=== PATIENT | female | born 1960 | race Caucasian/White ===

== ENCOUNTER → 2016-12-29 | Outpatient (CLI) | payer OTHER ==
--- NOTE | 2016-12-30 10:59 | XR ---
Left foot HISTORY: Pain 3 views of the left foot No comparisons Degenerative changes present within the first digit especially at the metatarsophalangeal joint, ther e are degenerative changes at the intertarsal and tibiotalar joints. Suspect underlying pes planus de formity. Alignment is maintained, bone mineralization is slightly decreased. There is soft tissue swe lling present. Soft tissue calcification in the leg may be vascular. IMPRESSION: Pes planus deformity suspected, osteoarthritic changes.
== END | disposition home or self-care (01) ==
LOC: RADXRYALE 13:10
PROVIDERS: ATTEND Internal Medicine
DX: M19.072 Primary osteoarthritis, left ankle and foot (principal)
CPT/HCPCS: 81003

== ENCOUNTER 2018-02-24 01:13 | Emergency (ER) | payer OTHER ==
--- NOTE | 2018-02-24 01:50 | ED ---
SOB HPI - General Chief Complaint: Shortness of Breath Stated Complaint: ANAY Time Seen by Provider: 02/24/18 01:26 Source: patient Mode of arrival: ambulatory Limitations: no limitations - History of Present Illness Initial Comments: This patient is a 57-year-old woman who presents to be evaluated for chest congestion which started approximately 16 hours ago and seems to be little bit worse tonight. The patient states she has also noted that she has little bit of swelling of the bilateral ankles and the dorsum of the feet bilaterally. The foot swelling seems to been going on for possibly 2-3 days. Patient denies chest pain. Denies change in bowel movements. She has noted that her urine seems to be more concentrated that this been going on for perhaps a month. MD Complaint: shortness of breath Onset/Timin -: days(s) Consistency: constant Improves With: nothing Worsens With: nothing Associated Symptoms: other (Bilateral foot and ankle edema) - Related Data Home Medications Medication Instructions Recorded Confirmed Losartan-Hctz 50-12.5 mg [Hyzaar 1 tab PO DAILY 06/10/14 02/24/18 50-12.5] Insulin Aspart [NovoLOG Flexpen] 20 units SQ AC-BID 05/10/15 02/24/18 Pantoprazole Sodium [Protonix] 40 mg PO DAILY 05/10/15 02/24/18 Pioglitazone HCl/Metformin HCl 1 tab PO BID 04/21/16 02/24/18 [Pioglitazone-Metformin 15850] Dulaglutide [Trulicity] 1.5 mg SQ [place] 09/18/16 02/24/18 Previous Rx's Medication Instructions Recorded Polyethylene Glycol 3350 [Miralax] 17 gm PO DAILY 7 Days packet 09/18/16 Ciprofloxacin HCl [Cipro] 500 mg PO Q12HR #14 tablet 02/24/18 Allergies Allergy/AdvReac Type Severity Reaction Status Date / Time No Known Allergies Allergy Verified 02/24/18 03:11 Review of Systems ROS Statement: Those systems with pertinent positive or pertinent negative responses have been documented in the HPI. ROS Other: All systems not noted in ROS Statement are negative. Constitutional: Denies: fever, chills Eyes: Denies: vision change Respiratory: Reports: dyspnea. Denies: wheezes, hemoptysis, stridor Cardiovascular: Reports: orthopnea, edema. Denies: chest pain, palpitations, syncope Gastrointestinal: Denies: abdominal pain, nausea, vomiting Genitourinary: Reports: other (Patient states urine seems to be more concentrated and has odor for about one month). Denies: dysuria, frequency, hematuria Musculoskeletal: Denies: back pain Skin: Denies: rash Neurological: Denies: headache, weakness, numbness Past Medical History Past Medical History: Diabetes Mellitus, GERD/Reflux, Hyperlipidemia, Hypertension Additional Past Medical History / Comment(s): Lymphoma, vertigo, hemmorhoids, History of Any Multi-Drug Resistant Organisms: None Reported Past Surgical History: Section, Hysterectomy, Tonsillectomy Additional Past Surgical History / Comment(s): right total hip, right knee reduction, lymph node removed right side, Past Psychological History: Depression Smoking Status: Former smoker Past Alcohol Use History: Occasional Past Drug Use History: None Reported General Exam Limitations: no limitations General appearance: alert, in no apparent distress, obese Head exam: Present: atraumatic, normocephalic Eye exam: Present: normal appearance. Absent: scleral icterus, conjunctival injection Respiratory exam: Present: normal lung sounds bilaterally. Absent: respiratory distress, wheezes, rales, rhonchi, stridor Cardiovascular Exam: Present: regular rate, normal rhythm, normal heart sounds. Absent: systolic murmur, diastolic murmur, rubs, gallop GI/Abdominal exam: Present: soft, other (Exam limited by obesity). Absent: distended, tenderness, guarding, rebound, rigid, pulsatile mass Extremities exam: Present: full ROM, normal capillary refill, pedal edema ( Bilateral edema to the ankles and dorsum of the feet). Absent: tenderness, calf tenderness Back exam: Present: normal inspection. Absent: CVA tenderness (R), CVA tenderness (L) Neurological exam: Present: alert Skin exam: Present: warm, dry, intact, normal color. Absent: rash Course Vital Signs 02/24/18 02/24/18 01:17 02:20 Temperature 98.0 F Pulse Rate 99 94 Respiratory 20 18 Rate Blood Pressure 146/74 130/80 O2 Sat by Pulse 97 96 Oximetry Medical Decision Making - Lab Data Result diagrams: 02/24/18 01:55 02/24/18 01:55 Lab Results 02/24/18 02/24/18 02/24/18 Range/Units 01:55 01:55 01:55 WBC 5.7 (3.8-10.6) k/uL RBC 4.59 (3.80-5.40) m/uL Hgb 13.4 (11.4-16.0) gm/dL Hct 41.1 (34.0-46.0) % MCV 89.5 (80.0-100.0) fL MCH 29.2 (25.0-35.0) pg MCHC 32.6 (31.0-37.0) g/dL RDW 13.9 (11.5-15.5) % Plt Count 342 (150-450) k/uL Neutrophils % 62 % Lymphocytes % 26 % Monocytes % 7 % Eosinophils % 2 % Basophils % 1 % Neutrophils # 3.5 (1.3-7.7) k/uL Lymphocytes # 1.5 (1.0-4.8) k/uL Monocytes # 0.4 (0-1.0) k/uL Eosinophils # 0.1 (0-0.7) k/uL Basophils # 0.1 (0-0.2) k/uL Sodium 139 (137-145) mmol/L Potassium 4.2 (3.5-5.1) mmol/L Chloride 99 (98-107) mmol/L Carbon Dioxide 27 (22-30) mmol/L Anion Gap 13 mmol/L BUN 22 H (7-17) mg/dL Creatinine 0.70 (0.52-1.04) mg/dL Est GFR (CKD-EPI)AfAm >90 (>60 ml/min/1.73 sqM) Est GFR (CKD-EPI)NonAf >90 (>60 ml/min/1.73 sqM) Glucose 239 H (74-99) mg/dL Calcium 9.7 (8.4-10.2) mg/dL Magnesium 1.8 (1.6-2.3) mg/dL Total Bilirubin 0.4 (0.2-1.3) mg/dL AST 15 (14-36) U/L ALT 12 (9-52) U/L Alkaline Phosphatase 83 (38-126) U/L Total Creatine Kinase 84 (30-135) U/L CK-MB (CK-2) 0.6 (0.0-2.4) ng/mL CK-MB (CK-2) Rel Index 0.7 Troponin I <0.012 (0.000-0.034) ng/mL NT-Pro-B Natriuret Pep pg/mL Total Protein 6.5 (6.3-8.2) g/dL Albumin 3.8 (3.5-5.0) g/dL Urine Color Urine Appearance (Clear) Urine pH (5.0-8.0) Ur Specific Industry (1.001-1.035) Urine Protein (Negative) Urine Glucose (UA) (Negative) Urine Ketones (Negative) Urine Blood (Negative) Urine Nitrite (Negative) Urine Bilirubin (Negative) Urine Urobilinogen (<2.0) mg/dL Ur Leukocyte Esterase (Negative) Urine RBC (0-5) /hpf Urine WBC (0-5) /hpf Ur Squamous Epith Cells (0-4) /hpf Urine Bacteria (None) /hpf Urine Mucus (None) /hpf Influenza Type A RNA (Not Detectd) Influenza Type B (PCR) (Not Detectd) 02/24/18 02/24/18 02/24/18 Range/Units 01:55 01:55 02:45 WBC (3.8-10.6) k/uL RBC (3.80-5.40) m/uL Hgb (11.4-16.0) gm/dL Hct (34.0-46.0) % MCV (80.0-100.0) fL MCH (25.0-35.0) pg MCHC (31.0-37.0) g/dL RDW (11.5-15.5) % Plt Count (150-450) k/uL Neutrophils % % Lymphocytes % % Monocytes % % Eosinophils % % Basophils % % Neutrophils # (1.3-7.7) k/uL Lymphocytes # (1.0-4.8) k/uL Monocytes # (0-1.0) k/uL Eosinophils # (0-0.7) k/uL Basophils # (0-0.2) k/uL Sodium (137-145) mmol/L Potassium (3.5-5.1) mmol/L Chloride (98-107) mmol/L Carbon Dioxide (22-30) mmol/L Anion Gap mmol/L BUN (7-17) mg/dL Creatinine (0.52-1.04) mg/dL Est GFR (CKD-EPI)AfAm (>60 ml/min/1.73 sqM) Est GFR (CKD-EPI)NonAf (>60 ml/min/1.73 sqM) Glucose (74-99) mg/dL Calcium (8.4-10.2) mg/dL Magnesium (1.6-2.3) mg/dL Total Bilirubin (0.2-1.3) mg/dL AST (14-36) U/L ALT (9-52) U/L Alkaline Phosphatase (38-126) U/L Total Creatine Kinase (30-135) U/L CK-MB (CK-2) (0.0-2.4) ng/mL CK-MB (CK-2) Rel Index Troponin I (0.000-0.034) ng/mL NT-Pro-B Natriuret Pep 72 pg/mL Total Protein (6.3-8.2) g/dL Albumin (3.5-5.0) g/dL Urine Color Yellow Urine Appearance Clear (Clear) Urine pH 5.5 (5.0-8.0) Ur Specific Industry 1.024 (1.001-1.035) Urine Protein Trace H (Negative) Urine Glucose (UA) 4+ H (Negative) Urine Ketones Trace H (Negative) Urine Blood Negative (Negative) Urine Nitrite Positive H (Negative) Urine Bilirubin Negative (Negative) Urine Urobilinogen 2.0 (<2.0) mg/dL Ur Leukocyte Esterase Moderate H (Negative) Urine RBC 2 (0-5) /hpf Urine WBC 59 H (0-5) /hpf Ur Squamous Epith Cells 1 (0-4) /hpf Urine Bacteria Rare H (None) /hpf Urine Mucus Occasional H (None) /hpf Influenza Type A RNA Not Detected (Not Detectd) Influenza Type B (PCR) Not Detected (Not Detectd) - EKG Data -: EKG Interpreted by Ct EKG shows normal: sinus rhythm, axis (Normal), intervals (IL interval and QRS duration both normal. QTC is 481 ms, prolonged.), QRS complexes (Normal), ST-T waves (Normal) Rate: normal (Rate 87 bpm) Disposition Clinical Impression: Urinary tract infection, Edema of both ankles Disposition: HOME SELF-CARE Condition: Fair Instructions: Urinary Tract Infection in Women (ED), Leg Edema (ED) Prescriptions: Ciprofloxacin HCl [Cipro] 500 mg PO Q12HR #14 tablet Is patient prescribed a controlled substance at d/c from ED?: No Referrals: Africa Be MD [Primary Care Provider] - 1-2 days
[2018-02-24 02:09] LABS: Basophils # (A) 0.1 k/uL (0-0.2); Basophils % (A) 1 %; Eosinophils # (A) 0.1 k/uL (0-0.7); Eosinophils % (A) 2 %; HCT 41.1 % (34.0-46.0); HGB 13.4 gm/dL (11.4-16.0); Lymphocytes # (A) 1.5 k/uL (1.0-4.8); Lymphocytes % (A) 26 %; MCH 29.2 pg (25.0-35.0); MCHC 32.6 g/dL (31.0-37.0); MCV 89.5 fL (80.0-100.0); Mean Platelet Volume 6.3; Monocytes # (A) 0.4 k/uL (0-1.0); Monocytes % (A) 7 %; Neutrophils # (A) 3.5 k/uL (1.3-7.7); Neutrophils % (A) 62 %; Platelet Count 342 k/uL (150-450); RBC 4.59 m/uL (3.80-5.40); RDW 13.9 % (11.5-15.5); WBC 5.7 k/uL (3.8-10.6)
--- NOTE | 2018-02-24 02:11 | XR ---
EXAMINATION TYPE: XR chest 2V DATE OF EXAM: 02/24/2018 COMPARISON: NONE HISTORY: Difficulty breathing TECHNIQUE: Frontal and lateral views of the chest are obtained. FINDINGS: Heart and mediastinum are normal. Lungs are clear. Costophrenic angles are clear. Bony tho rax is intact. Pulmonary vascularity is normal. There are chest leads. IMPRESSION: Normal chest
[2018-02-24 02:17] LABS: ALT 12 U/L (9-52); AST 15 U/L (14-36); Albumin 3.8 g/dL (3.5-5.0); Alkaline Phosphatase 83 U/L (38-126); Anion Gap 13 mmol/L; Blood Urea Nitrogen 22 mg/dL (7-17); Calcium 9.7 mg/dL (8.4-10.2); Carbon Dioxide 27 mmol/L (22-30); Chloride 99 mmol/L (98-107); Glucose 239 mg/dL (74-99); Magnesium 1.8 mg/dL (1.6-2.3); Potassium 4.2 mmol/L (3.5-5.1); Sodium 139 mmol/L (137-145); Total Bilirubin 0.4 mg/dL (0.2-1.3); Total Protein 6.5 g/dL (6.3-8.2)
[2018-02-24 02:19] LABS: Creatine Kinase 84 U/L (30-135)
[2018-02-24 02:45] LABS: Creatine Kinase MB 0.6 ng/mL (0.0-2.4); Troponin I <0.012 ng/mL (0.000-0.034)
[2018-02-24 02:57] LABS: Appearance,Urine Clear (Clear); Bacteria,Urine Rare /hpf; Bilirubin,Urine Negative (Negative); Blood,Urine Negative (Negative); Color,Urine Yellow; Glucose,Urine (UA) 4+ (Negative); Ketones,Urine Trace (Negative); Leukocyte Esterase,Urine Moderate (Negative); Mucus,Urine Occasional /hpf; Nitrite,Urine Positive (Negative); PH, Urine 5.5 (5.0-8.0); Protein,Urine Trace (Negative); RBC,Urine 2 /hpf (0-5); Specific Gravity,Urine 1.024 (1.001-1.035); Squamous Epithelial Cell,Urine 1 /hpf (0-4); WBC,Urine 59 /hpf (0-5)
[2018-02-24 02:59] VITALS: RESP 18
[2018-02-24] MEDS ORDERED: cefTRIAXone IN SWFI 1,000 MG/10 ML SYRINGE IVP STA (03:00)
[2018-02-24 03:38] VITALS: BP 121/79; PULSE 88; TEMP 97.9
== END 2018-02-24 03:37 | disposition home or self-care (01) ==
LOC: EC 01:13
DX: N39.0 Urinary tract infection, site not specified (principal); R60.0 Localized edema; R06.02 Shortness of breath; R09.89 Other specified symptoms and signs involving the circulatory and respiratory systems; I10 Essential (primary) hypertension; E11.9 Type 2 diabetes mellitus without complications; K21.9 Gastro-esophageal reflux disease without esophagitis; E66.9 Obesity, unspecified; Z87.891 Personal history of nicotine dependence; Z79.4 Long term (current) use of insulin; Z79.899 Other long term (current) drug therapy; Z68.42 Body mass index [BMI] 45.0-49.9, adult
CPT/HCPCS: 36415; 93005; 83880; 80053; 82550; 82553; 83735; 84484; 85025; 81001; 87086; 87502; 71046; 99285; 96374; J0696; 87077; 87186

== ENCOUNTER → 2018-06-17 | Outpatient (CLI) | payer OTHER ==
--- NOTE | 2018-06-17 15:41 | CT ---
EXAMINATION TYPE: CT ChestAbdPelvis w con DATE OF EXAM: 06/17/2018 COMPARISON: 09/18/2016 and 05/26/2012 HISTORY: 57-year-old female follow-up Lymphoma (Rt hip) TECHNIQUE: Contiguous axial scanning of the chest, abdomen, and pelvis performed with IV Contrast, pa tient injected with 100 mL of Isovue 300. Delayed images through the kidneys were obtained. Coronal/s agittal reconstructions performed. CT DLP: 2434 mGycm Automated exposure control for dose reduction was used. FINDINGS: Chest: The heart is upper limits of normal in size without pericardial effusion. Coronary vessel calcificati ons are present. Aorta normal caliber with a bovine configuration to the aortic arch. No thoracic lymphadenopathy by C T size criteria. Evaluation of the lungs show some minimal stable 4 mm and smaller nodularity in the right middle lobe and also at the peripheral left base. Strandy atelectasis medial right middle lobe and inferior ling nancy. No consolidation or pleural effusion. ABDOMEN: Note is artifact from patient's large body habitus. No definite focal liver lesion though assessment is limited due to the artifacts. Portal venous system appears grossly patent. Cholecystectomy clips. Stable 1.4 cm left adrenal nodule. Stability suggests a benign adrenal adenoma. Right adrenal gland, spleen, and pancreas appear within normal limits. No IV contrast seen excreted from the kidneys on delayed kidney images. Numerous borderline and mildly enlarged mesenteric lymph nodes are present measuring up to 1.1 cm, un changed from 2016. Additional scattered borderline sized left periaortic lymph nodes noted. Right com mon iliac chain lymph node is mildly enlarged at 1 cm, stable. No dilated small bowel, free fluid, or free air. Oral contrast has progressed to the rectum. No peric olonic inflammatory change. Retroaortic left renal vein. Pelvis: Very limited assessment due to artifact from the patient's right hip replacement and large body habit us causing excessive Monroe's. No abnormal fluid collection seen. No evident inguinal lymphadenopathy . Assessment is otherwise very limited. Bones: Right hip replacement. Degenerative changes left hip. Endplate spondylosis mid to lower thoracic spin e. Degenerative disc disease mid to lower lumbar spine. IMPRESSION: NUMEROUS BORDERLINE AND MILDLY ENLARGED MESENTERIC LYMPH NODES REMAIN UNCHANGED DATING BACK TO 2016 A ND EVEN 2011. FINDINGS COULD BE CHRONIC REACTIVE/POST INFLAMMATORY OR COULD REPRESENT TREATED DISEASE . ONGOING FOLLOW-UP INDICATED.
== END | disposition home or self-care (01) ==
LOC: RADCTMAIN 10:52
PROVIDERS: ATTEND Internal Medicine Hematology & Oncology
DX: C85.98 Non-Hodgkin lymphoma, unspecified, lymph nodes of multiple sites (principal); R59.0 Localized enlarged lymph nodes
CPT/HCPCS: 82565; 84520; 71260; 74177; 36415; Q9967

== ENCOUNTER 2020-09-05 20:30 | Inpatient (IN) | payer OTHER ==
--- NOTE | 2020-09-05 22:39 | ED ---
General Adult HPI - General Chief complaint: Shortness of Breath Stated complaint: +COVID, Weakness Time Seen by Provider: 09/05/20 22:07 Source: patient, family Mode of arrival: ambulatory Limitations: no limitations - History of Present Illness Initial comments: 59-year-old female presents to the emergency department with complaints of increasing shortness of breath, fever, and fatigue. Patient states she was diagnosed with COVID on August 31 by her primary care provider and is currently on an oral steroid but is feeling worse. Patient states symptoms began 2 weeks ago with sinus pressure followed by a congested cough, nausea, vomiting, and diarrhea. Reports several members of her household are also COVID positive. Patient denies any recent rash, chest pain, abdominal pain, constipation, back pain, numbness, tingling, dizziness, hematuria, dysuria, urinary urgency, urinary frequency, headache, visual changes, or any other complaints. - Related Data Home Medications Medication Instructions Recorded Confirmed Losartan-Hctz 50-12.5 mg [Hyzaar 1 tab PO DAILY 06/10/14 09/06/20 50-12.5] Pantoprazole Sodium [Protonix] 40 mg PO DAILY 05/10/15 09/06/20 Pioglitazone HCl/Metformin HCl 2 tab PO DAILY 04/21/16 09/06/20 [Pioglitazone-Metformin 15-850] Albuterol Nebulized [Ventolin 2.5 mg INHALATION RT-QID PRN 09/05/20 09/06/20 Nebulized] Atorvastatin [Lipitor] 10 mg PO HS 09/05/20 09/06/20 Cephalexin [Keflex] 500 mg PO BID 09/05/20 09/06/20 Cholecalciferol [Vitamin D3 (25 4,000 unit PO DAILY 09/05/20 09/06/20 Mcg = 1000 Iu)] Cinnamon Bark [Cinnamon] 500 mg PO DAILY 09/05/20 09/06/20 Dulaglutide [Trulicity] 0.75 mg SQ WE 09/05/20 09/06/20 Insulin Detemir [Levemir Flextouch] 50 units SQ DAILY 09/05/20 09/06/20 Venlafaxine HCl [Effexor XR] 150 mg PO DAILY 09/05/20 09/06/20 methylPREDNISolone [Medrol Dose See Taper PO DIRECTED 11/18/20 11/19/20 Pack] Allergies Allergy/AdvReac Type Severity Reaction Status Date / Time No Known Allergies Allergy Verified 09/05/20 23:57 Review of Systems ROS Statement: Those systems with pertinent positive or pertinent negative responses have been documented in the HPI. ROS Other: All systems not noted in ROS Statement are negative. Past Medical History Past Medical History: Diabetes Mellitus, GERD/Reflux, Hyperlipidemia, Hypertension Additional Past Medical History / Comment(s): Lymphoma, vertigo, hemmorhoids, History of Any Multi-Drug Resistant Organisms: None Reported Past Surgical History: Section, Hysterectomy, Tonsillectomy Additional Past Surgical History / Comment(s): right total hip, right knee reduction, lymph node removed right side, Past Psychological History: Depression Smoking Status: Former smoker Past Alcohol Use History: Occasional Past Drug Use History: None Reported General Exam Limitations: no limitations General appearance: alert (Well-developed, well-nourished female who presents in mild distress. Initial temperature 97.5, pulse 91, respirations 26, blood pr essure 107/75, pulse ox 90% on room air.) Respiratory exam: Present: normal lung sounds bilaterally, chest wall tenderness (Right lateral chest wall tenderness), other (short of breath with activity and position changes; mildly tachypneic). Absent: wheezes, rhonchi Cardiovascular Exam: Present: regular rate, normal rhythm, normal heart sounds. Absent: systolic murmur, diastolic murmur, rubs, gallop, clicks GI/Abdominal exam: Present: soft, normal bowel sounds, other (Large abdominal habitus). Absent: tenderness Neurological exam: Present: alert, oriented X3, CN II-XII intact Psychiatric exam: Present: flat affect Skin exam: Present: warm, dry, intact, pallor Course Vital Signs 09/05/20 09/05/20 09/05/20 20:40 21:25 22:30 Temperature 97.5 F L Pulse Rate 91 76 Respiratory 26 H 22 20 Rate Blood Pressure 107/75 118/55 O2 Sat by Pulse 90 L 97 Oximetry 09/05/20 09/06/20 23:30 01:00 Temperature 98.6 F Pulse Rate 79 79 Respiratory 20 20 Rate Blood Pressure 127/61 127/61 O2 Sat by Pulse 97 94 L Oximetry Medical Decision Making - Medical Decision Making 59-year-old female presents to the emergency department with worsening shortness of breath and fatigue. States she was diagnosed with COVID on August 31 and was recently prescribed a steroid Dosepak, but does not feel as if she is improving. Patient reports poor appetite, dyspnea with minimal exertion, and generalized weakness. Initial room air saturation was 90% with a respiratory rate of 26. Improved to 95% with oxygen administration. Lab work was obtained and demonstrated dehydration with a sodium of 130 and a chloride of 93. Renal function is also impaired. BUN 37, and creatinine 1.25. Lab markers for Covid were elevated, specifically LDH 1138 and CRP 89.5. Patient's d-dimer was 0.84. CT of the chest showed ground glass opacities consistent with multifocal infection; negative for pulmonary embolism. IV hydration will continue. Discussed plan to admit with patient and she is agreeable. - Lab Data Result diagrams: 09/05/20 23:15 09/05/20 23:15 Lab Results 09/05/20 09/05/20 09/05/20 Range/Units 23:15 23:15 23:15 WBC 8.8 (3.8-10.6) k/uL RBC 4.16 (3.80-5.40) m/uL Hgb 12.6 (11.4-16.0) gm/dL Hct 37.2 (34.0-46.0) % MCV 89.4 (80.0-100.0) fL MCH 30.4 (25.0-35.0) pg MCHC 34.0 (31.0-37.0) g/dL RDW 13.5 (11.5-15.5) % Plt Count 380 (150-450) k/uL MPV 7.2 Neutrophils % 89 % Lymphocytes % 6 % Monocytes % 3 % Eosinophils % 0 % Basophils % 1 % Neutrophils # 7.9 H (1.3-7.7) k/uL Lymphocytes # 0.5 L (1.0-4.8) k/uL Monocytes # 0.2 (0-1.0) k/uL Eosinophils # 0.0 (0-0.7) k/uL Basophils # 0.1 (0-0.2) k/uL PT 9.4 (9.0-12.0) sec INR 0.9 (<1.2) APTT 23.2 (22.0-30.0) sec D-Dimer 0.84 H (<0.60) mg/L FEU Sodium 130 L (137-145) mmol/L Potassium 4.3 (3.5-5.1) mmol/L Chloride 93 L (98-107) mmol/L Carbon Dioxide 23 (22-30) mmol/L Anion Gap 14 mmol/L BUN 37 H (7-17) mg/dL Creatinine 1.25 H (0.52-1.04) mg/dL Est GFR (CKD-EPI)AfAm 54 (>60 ml/min/1.73 sqM) Est GFR (CKD-EPI)NonAf 47 (>60 ml/min/1.73 sqM) Glucose 408 H (74-99) mg/dL POC Glucose (mg/dL) (75-99) mg/dL POC Glu Lead Slot Technician ID Plasma Lactic Acid Gerard (0.7-2.0) mmol/L Calcium 9.0 (8.4-10.2) mg/dL Magnesium 2.1 (1.6-2.3) mg/dL Total Bilirubin 0.7 (0.2-1.3) mg/dL AST 38 H (14-36) U/L ALT 25 (4-34) U/L Alkaline Phosphatase 66 (38-126) U/L Lactate Dehydrogenase 1138 H (313-618) U/L C-Reactive Protein 89.5 H (<10.0) mg/L Total Protein 7.0 (6.3-8.2) g/dL Albumin 3.8 (3.5-5.0) g/dL Urine Color Urine Appearance (Clear) Urine pH (5.0-8.0) Ur Specific [place] (1.001-1.035) Urine Protein (Negative) Urine Glucose (UA) (Negative) Urine Ketones (Negative) Urine Blood (Negative) Urine Nitrite (Negative) Urine Bilirubin (Negative) Urine Urobilinogen (<2.0) mg/dL Ur Leukocyte Esterase (Negative) Urine RBC (0-5) /hpf Urine WBC (0-5) /hpf Ur Squamous Epith Cells (0-4) /hpf Urine Bacteria (None) /hpf Urine Mucus (None) /hpf 09/05/20 09/06/20 09/06/20 Range/Units 23:15 00:12 00:23 WBC (3.8-10.6) k/uL RBC (3.80-5.40) m/uL Hgb (11.4-16.0) gm/dL Hct (34.0-46.0) % MCV (80.0-100.0) fL MCH (25.0-35.0) pg MCHC (31.0-37.0) g/dL RDW (11.5-15.5) % Plt Count (150-450) k/uL MPV Neutrophils % % Lymphocytes % % Monocytes % % Eosinophils % % Basophils % % Neutrophils # (1.3-7.7) k/uL Lymphocytes # (1.0-4.8) k/uL Monocytes # (0-1.0) k/uL Eosinophils # (0-0.7) k/uL Basophils # (0-0.2) k/uL PT (9.0-12.0) sec INR (<1.2) APTT (22.0-30.0) sec D-Dimer (<0.60) mg/L FEU Sodium (137-145) mmol/L Potassium (3.5-5.1) mmol/L Chloride (98-107) mmol/L Carbon Dioxide (22-30) mmol/L Anion Gap mmol/L BUN (7-17) mg/dL Creatinine (0.52-1.04) mg/dL Est GFR (CKD-EPI)AfAm (>60 ml/min/1.73 sqM) Est GFR (CKD-EPI)NonAf (>60 ml/min/1.73 sqM) Glucose (74-99) mg/dL POC Glucose (mg/dL) 392 H (75-99) mg/dL POC Glu Lead Slot Technician ID Jax Grewal Plasma Lactic Acid Gerard 2.0 (0.7-2.0) mmol/L Calcium (8.4-10.2) mg/dL Magnesium (1.6-2.3) mg/dL Total Bilirubin (0.2-1.3) mg/dL AST (14-36) U/L ALT (4-34) U/L Alkaline Phosphatase (38-126) U/L Lactate Dehydrogenase (313-618) U/L C-Reactive Protein (<10.0) mg/L Total Protein (6.3-8.2) g/dL Albumin (3.5-5.0) g/dL Urine Color Yellow Urine Appearance Cloudy H (Clear) Urine pH 5.0 (5.0-8.0) Ur Specific [place] 1.025 (1.001-1.035) Urine Protein 1+ H (Negative) Urine Glucose (UA) 4+ H (Negative) Urine Ketones 1+ H (Negative) Urine Blood Trace H (Negative) Urine Nitrite Negative (Negative) Urine Bilirubin Negative (Negative) Urine Urobilinogen <2.0 (<2.0) mg/dL Ur Leukocyte Esterase Moderate H (Negative) Urine RBC 3 (0-5) /hpf Urine WBC 23 H (0-5) /hpf Ur Squamous Epith Cells 3 (0-4) /hpf Urine Bacteria Moderate H (None) /hpf Urine Mucus Rare H (None) /hpf 09/06/20 Range/Units 01:54 WBC (3.8-10.6) k/uL RBC (3.80-5.40) m/uL Hgb (11.4-16.0) gm/dL Hct (34.0-46.0) % MCV (80.0-100.0) fL MCH (25.0-35.0) pg MCHC (31.0-37.0) g/dL RDW (11.5-15.5) % Plt Count (150-450) k/uL MPV Neutrophils % % Lymphocytes % % Monocytes % % Eosinophils % % Basophils % % Neutrophils # (1.3-7.7) k/uL Lymphocytes # (1.0-4.8) k/uL Monocytes # (0-1.0) k/uL Eosinophils # (0-0.7) k/uL Basophils # (0-0.2) k/uL PT (9.0-12.0) sec INR (<1.2) APTT (22.0-30.0) sec D-Dimer (<0.60) mg/L FEU Sodium (137-145) mmol/L Potassium (3.5-5.1) mmol/L Chloride (98-107) mmol/L Carbon Dioxide (22-30) mmol/L Anion Gap mmol/L BUN (7-17) mg/dL Creatinine (0.52-1.04) mg/dL Est GFR (CKD-EPI)AfAm (>60 ml/min/1.73 sqM) Est GFR (CKD-EPI)NonAf (>60 ml/min/1.73 sqM) Glucose (74-99) mg/dL POC Glucose (mg/dL) 328 H (75-99) mg/dL POC Glu Lead Slot Technician ID Veronica Grubbs Plasma Lactic Acid Gerard (0.7-2.0) mmol/L Calcium (8.4-10.2) mg/dL Magnesium (1.6-2.3) mg/dL Total Bilirubin (0.2-1.3) mg/dL AST (14-36) U/L ALT (4-34) U/L Alkaline Phosphatase (38-126) U/L Lactate Dehydrogenase (313-618) U/L C-Reactive Protein (<10.0) mg/L Total Protein (6.3-8.2) g/dL Albumin (3.5-5.0) g/dL Urine Color Urine Appearance (Clear) Urine pH (5.0-8.0) Ur Specific [place] (1.001-1.035) Urine Protein (Negative) Urine Glucose (UA) (Negative) Urine Ketones (Negative) Urine Blood (Negative) Urine Nitrite (Negative) Urine Bilirubin (Negative) Urine Urobilinogen (<2.0) mg/dL Ur Leukocyte Esterase (Negative) Urine RBC (0-5) /hpf Urine WBC (0-5) /hpf Ur Squamous Epith Cells (0-4) /hpf Urine Bacteria (None) /hpf Urine Mucus (None) /hpf - EKG Data EKG shows normal: sinus rhythm Rate: normal EKG Comments: EKG obtained at 2117 shows normal sinus rhythm. Ventricular rate 90, [place] interval 164, QRS duration 106, QT/QTC 388/474. Nonspecific ST and T-wave abnormality. Abnormal ECG. - Radiology Data Radiology results: report reviewed CT angiography of the chest with IV contrast was obtained. Impression per Dr. Rasmussen includes diffuse peripheral ground glass opacification involving all lung lobes consistent with multifocal infection. No acute pulmonary embolism. Small hiatal hernia. Disposition Clinical Impression: COVID-19, Hypoxia, Acute kidney failure, Dehydration Disposition: ADMITTED IP TO THIS [facility] Condition: Serious Referrals: Nicole Brantley DO [Primary Care Provider] - 1-2 days Decision to Admit Reason: Admit from EC Decision Date: 09/06/20 Decision Time: 01:38
[2020-09-05 23:35] LABS: Basophils # (A) 0.1 k/uL (0-0.2); Basophils % (A) 1 %; Eosinophils % (A) 0 %; HCT 37.2 % (34.0-46.0); HGB 12.6 gm/dL (11.4-16.0); Lymphocytes # (A) 0.5 k/uL (1.0-4.8); Lymphocytes % (A) 6 %; MCH 30.4 pg (25.0-35.0); MCV 89.4 fL (80.0-100.0); Mean Platelet Volume 7.2; Monocytes # (A) 0.2 k/uL (0-1.0); Monocytes % (A) 3 %; Neutrophils # (A) 7.9 k/uL (1.3-7.7); Neutrophils % (A) 89 %; Platelet Count 380 k/uL (150-450); RBC 4.16 m/uL (3.80-5.40); RDW 13.5 % (11.5-15.5); WBC 8.8 k/uL (3.8-10.6)
[2020-09-05 23:40] LABS: Albumin 3.8 g/dL (3.5-5.0); C Reactive Protein 89.5 mg/L (<10.0); Magnesium 2.1 mg/dL (1.6-2.3); Potassium 4.3 mmol/L (3.5-5.1); Total Bilirubin 0.7 mg/dL (0.2-1.3)
[2020-09-05 23:43] LABS: INR 0.9 (<1.2); Partial Thromboplastin Time 23.2 sec (22.0-30.0); Prothrombin Time 9.4 sec (9.0-12.0)
[2020-09-05 23:51] LABS: D-Dimer 0.84 mg/L FEU (<0.60)
[2020-09-06] MEDS ORDERED: SODIUM CHLORIDE 0.9% 1,000 ML IV ONE (00:06)
[2020-09-06] MEDS ORDERED: INSULIN ASPART (NovoLOG) 100 UNIT/ML VIAL SQ ONE ×2 (00:11→01:57)
[2020-09-06 00:25] LABS: Glucose,Whole Blood 392 mg/dL (75-99)
[2020-09-06 00:28] LABS: Appearance,Urine Cloudy (Clear); Bacteria,Urine Moderate /hpf; Bilirubin,Urine Negative (Negative); Blood,Urine Trace (Negative); Color,Urine Yellow; Glucose,Urine (UA) 4+ (Negative); Ketones,Urine 1+ (Negative); Leukocyte Esterase,Urine Moderate (Negative); Mucus,Urine Rare /hpf; Nitrite,Urine Negative (Negative); Protein,Urine 1+ (Negative); RBC,Urine 3 /hpf (0-5); Specific Gravity,Urine 1.025 (1.001-1.035); Squamous Epithelial Cell,Urine 3 /hpf (0-4); Urobilinogen,Urine <2.0 mg/dL (<2.0); WBC,Urine 23 /hpf (0-5)
--- NOTE | 2020-09-06 01:22 | CT ---
EXAM: CT Angiography Chest With Intravenous Contrast CLINICAL HISTORY: ITS.REASON CT Reason: increased shortness of breath, COVID+ TECHNIQUE: Axial computed tomographic angiography images of the chest with intravenous contrast. CTDI is 29.984 mGy and DLP is 824 mGy-cm. This CT exam was performed using one or more of the following dose reduction techniques: automated exposure control, adjustment of the mA and/or kV according to patient size, and/or use of iterative reconstruction technique. MIP reconstructed images were created and reviewed. COMPARISON: 06/17/2018 FINDINGS: Pulmonary arteries: No acute pulmonary embolism. Normal caliber of the main pulmonary artery. Aorta: No acute findings. No thoracic aortic aneurysm. Incidental note of common origin of the brachiocephalic trunk and left common carotid artery. Lungs: Diffuse peripheral ground glass opacification. No mass. Mild atelectasis of the left base. Pleural space: Unremarkable. No significant effusion. No pneumothorax. Heart: Unremarkable. No cardiomegaly. No significant pericardial effusion. No evidence of RV dysfunction. Bones/joints: No acute fracture. No dislocation. Soft tissues: Small hiatal hernia. Lymph nodes: Unremarkable. No enlarged lymph nodes. IMPRESSION: 1. No acute pulmonary embolism. 2. Diffuse peripheral ground glass opacification involving all lung lobes consistent with multifocal infection. 3. Small hiatal hernia.
[2020-09-06] MEDS ORDERED: NALOXONE 0.4 MG/ML 1 ML VIAL IV PRN (01:32)
[2020-09-06 01:55] LABS: Glucose,Whole Blood 328 mg/dL (75-99)
[2020-09-06] MEDS: SODIUM CHLORIDE 0.9% 1,000 ML IV SCH ×2 (02:07→20:50)
[2020-09-06] MEDS: ACETAMINOPHEN TAB 325 MG TAB PO PRN (02:08)
[2020-09-06] MEDS: INSULIN DETEMIR (LEVEMIR) 100 UNIT/ML SYR SQ SCH (07:09)
[2020-09-06 07:27] LABS: Glucose,Whole Blood 93 mg/dL (75-99)
[2020-09-06] MEDS: INSULIN ASPART (NovoLOG) 100 UNIT/ML VIAL SQ SCH ×4 (08:40→20:48)
[2020-09-06] MEDS: VENLAFAXINE HCL ER 150 MG CAP PO SCH (08:43)
[2020-09-06] MEDS: CHOLECALCIFEROL 1,000 UNIT TAB PO SCH (08:43)
[2020-09-06] MEDS: PIOGLITAZONE 15 MG TAB PO SCH (08:44)
[2020-09-06] MEDS ORDERED: metFORMIN 850 MG TAB PO SCH (09:00)
[2020-09-06] MEDS ORDERED: LOSARTAN-HCTZ 50-12.5 MG 1 EACH TAB PO SCH (09:00)
[2020-09-06] MEDS ORDERED: PANTOPRAZOLE 40 MG TABLET PO SCH (09:00)
[2020-09-06 09:38] LABS: Ferritin 539.6 ng/mL (10.0-291.0)
[2020-09-06 11:13] LABS: Glucose,Whole Blood 114 mg/dL (75-99)
[2020-09-06] MEDS ORDERED: REMDESIVIR (EUA) 200 MG in SODIUM CHLORIDE 0.9% 250 ML IVPB ONE (14:00)
--- NOTE | 2020-09-06 14:09 | P.HPIM ---
History of Present Illness 59-year-old female presents to the emergency department with complaints of increasing shortness of breath, fever, and fatigue. Patient states she was diagnosed with COVID on August 31 by her primary care provider and is currently on an oral steroid but is feeling worse. Patient states symptoms began 2 weeks ago with sinus pressure followed by a congested cough, nausea, vomiting, and diarrhea. Reports several members of her household are also COVID positive. Patient denies any recent rash, chest pain, abdominal pain, const ipation, back pain, numbness, tingling, dizziness, hematuria, dysuria, urinary urgency, urinary frequency, headache, visual changes, or any other complaints. Her diarrhea presently improved Review of Systems REVIEW OF SYSTEMS: CONSTITUTIONAL: No fever, no malaise, no fatigue. HEENT: No recent visual problems or hearing problems. Denied any sore throat. CARDIOVASCULAR: No chest pain, orthopnea, PND, no palpitations, no syncope. PULMONARY: No shortness of breath, no cough, no hemoptysis. GASTROINTESTINAL: No diarrhea, no nausea, no vomiting, no abdominal pain. NEUROLOGICAL: No headaches, no weakness, no numbness. HEMATOLOGICAL: Denies any bleeding or petechiae. GENITOURINARY: Denies any burning micturition, frequency, or urgency. MUSCULOSKELETAL/RHEUMATOLOGICAL: Denies any joint pain, swelling, or any muscle pain. ENDOCRINE: Denies any polyuria or polydipsia. The rest of the 14-point review of systems is negative. Past Medical History Past Medical History: Diabetes Mellitus, GERD/Reflux, Hyperlipidemia, Hypertension Additional Past Medical History / Comment(s): Lymphoma, vertigo, hemmorhoids, History of Any Multi-Drug Resistant Organisms: None Reported Past Surgical History: Section, Hysterectomy, Tonsillectomy Additional Past Surgical History / Comment(s): right total hip, right knee r eduction, lymph node removed right side, Past Anesthesia/Blood Transfusion Reactions: No Reported Reaction Past Psychological History: Depression Smoking Status: Former smoker Past Alcohol Use History: Occasional Past Drug Use History: None Reported Medications and Allergies Home Medications Medication Instructions Recorded Confirmed Type Losartan-Hctz 50-12.5 mg [Hyzaar 1 tab PO DAILY 06/10/14 09/06/20 History 50-12.5] Pantoprazole Sodium [Protonix] 40 mg PO DAILY 05/10/15 09/06/20 History Pioglitazone HCl/Metformin HCl 2 tab PO DAILY 04/21/16 09/06/20 History [Pioglitazone-Metformin 15-850] Albuterol Nebulized [Ventolin 2.5 mg INHALATION RT-QID PRN 09/05/20 09/06/20 History Nebulized] Atorvastatin [Lipitor] 10 mg PO HS 09/05/20 09/06/20 History Cephalexin [Keflex] 500 mg PO BID 09/05/20 09/06/20 History Cholecalciferol [Vitamin D3 (25 4,000 unit PO DAILY 09/05/20 09/06/20 History Mcg = 1000 Iu)] Cinnamon Bark [Cinnamon] 500 mg PO DAILY 09/05/20 09/06/20 History Dulaglutide [Trulicity] 0.75 mg SQ WE 09/05/20 09/06/20 History Insulin Detemir [Levemir Flextouch] 50 units SQ DAILY 09/05/20 09/06/20 History Venlafaxine HCl [Effexor XR] 150 mg PO DAILY 09/05/20 09/06/20 History methylPREDNISolone [Medrol Dose See Taper PO DIRECTED 09/05/20 09/06/20 History Pack] Allergies Allergy/AdvReac Type Severity Reaction Status Date / Time No Known Allergies Allergy Verified 09/05/20 23:57 Physical Exam Vitals: Vital Signs Temp Pulse Pulse Resp BP BP Pulse Ox 09/06/20 11:00 98.8 F 74 20 123/65 93 L 09/06/20 07:12 20 09/06/20 07:00 98 F 71 18 124/67 94 L 09/06/20 03:35 98.4 F 77 20 109/62 90 L 09/06/20 02:56 18 09/06/20 02:25 98.7 F 71 19 131/74 97 09/06/20 01:00 98.6 F 79 20 127/61 94 L 09/05/20 23:30 79 20 127/61 97 09/05/20 22:30 76 20 118/55 97 09/05/20 21:25 22 09/05/20 20:40 97.5 F L 91 26 H 107/75 90 L Intake and Output 09/05/20 09/06/20 09/06/20 22:59 06:59 14:59 Intake Total 450 Balance 450 Intake: Intake, IV Titration 150 Amount Sodium Chloride 0.9% 1, 150 000 ml @ 50 mls/hr IV . Q20H [facility] Rx#:[id number] Oral 300 Other: Voiding Method Bedside Commode # Voids 1 Weight 133.81 kg 133.81 kg PHYSICAL EXAMINATION: GENERAL: The patient is alert and oriented x3, not in any acute distress. Well developed, well nourished. HEENT: Pupils are round and equally reacting to light. EOMI. No scleral icterus. No conjunctival pallor. Normocephalic, atraumatic. No pharyngeal erythema. No thyromegaly. CARDIOVASCULAR: S1 and S2 present. No murmurs, rubs, or gallops. PULMONARY: Chest is clear to auscultation, no wheezing or crackles. ABDOMEN: Soft, nontender, nondistended, normoactive bowel sounds. No palpable organomegaly. MUSCULOSKELETAL: No joint swelling or deformity. EXTREMITIES: No cyanosis, clubbing, or pedal edema. NEUROLOGICAL: Gross neurological examination did not reveal any focal deficits. SKIN: No rashes. Note: Because of [place] [id number] isolation, some of the history and physical exam findings are indirect and obtained from nursing staff, and other physician examinations to avoid unnecessary contact with the patient. Results CBC & Chem 7: 09/05/20 23:15 09/05/20 23:15 Labs: Abnormal Lab Results - Last 24 Hours (Table) 09/05/20 09/05/20 09/05/20 Range/Units 23:15 23:15 23:15 Neutrophils # 7.9 H (1.3-7.7) k/uL Lymphocytes # 0.5 L (1.0-4.8) k/uL D-Dimer 0.84 H (<0.60) mg/L FEU Sodium 130 L (137-145) mmol/L Chloride 93 L (98-107) mmol/L BUN 37 H (7-17) mg/dL Creatinine 1.25 H (0.52-1.04) mg/dL Glucose 408 H (74-99) mg/dL POC Glucose (mg/dL) (75-99) mg/dL Ferritin 539.6 H (10.0-291.0) ng/mL AST 38 H (14-36) U/L Lactate Dehydrogenase 1138 H (313-618) U/L C-Reactive Protein 89.5 H (<10.0) mg/L Procalcitonin (0.02-0.09) ng/mL Urine Appearance (Clear) Urine Protein (Negative) Urine Glucose (UA) (Negative) Urine Ketones (Negative) Urine Blood (Negative) Ur Leukocyte Esterase (Negative) Urine WBC (0-5) /hpf Urine Bacteria (None) /hpf Urine Mucus (None) /hpf 09/05/20 09/06/20 09/06/20 Range/Units 23:15 00:12 00:23 Neutrophils # (1.3-7.7) k/uL Lymphocytes # (1.0-4.8) k/uL D-Dimer (<0.60) mg/L FEU Sodium (137-145) mmol/L Chloride (98-107) mmol/L BUN (7-17) mg/dL Creatinine (0.52-1.04) mg/dL Glucose (74-99) mg/dL POC Glucose (mg/dL) 392 H (75-99) mg/dL Ferritin (10.0-291.0) ng/mL AST (14-36) U/L Lactate Dehydrogenase (313-618) U/L C-Reactive Protein (<10.0) mg/L Procalcitonin 0.12 H (0.02-0.09) ng/mL Urine Appearance Cloudy H (Clear) Urine Protein 1+ H (Negative) Urine Glucose (UA) 4+ H (Negative) Urine Ketones 1+ H (Negative) Urine Blood Trace H (Negative) Ur Leukocyte Esterase Moderate H (Negative) Urine WBC 23 H (0-5) /hpf Urine Bacteria Moderate H (None) /hpf Urine Mucus Rare H (None) /hpf 09/06/20 09/06/20 Range/Units 01:54 11:11 Neutrophils # (1.3-7.7) k/uL Lymphocytes # (1.0-4.8) k/uL D-Dimer (<0.60) mg/L FEU Sodium (137-145) mmol/L Chloride (98-107) mmol/L BUN (7-17) mg/dL Creatinine (0.52-1.04) mg/dL Glucose (74-99) mg/dL POC Glucose (mg/dL) 328 H 114 H (75-99) mg/dL Ferritin (10.0-291.0) ng/mL AST (14-36) U/L Lactate Dehydrogenase (313-618) U/L C-Reactive Protein (<10.0) mg/L Procalcitonin (0.02-0.09) ng/mL Urine Appearance (Clear) Urine Protein (Negative) Urine Glucose (UA) (Negative) Urine Ketones (Negative) Urine Blood (Negative) Ur Leukocyte Esterase (Negative) Urine WBC (0-5) /hpf Urine Bacteria (None) /hpf Urine Mucus (None) /hpf Microbiology - Last 24 Hours (Table) 09/06/20 00:12 Urine Culture - Preliminary Urine,Clean Catch Thrombosis Risk Factor Assmnt - Choose All That Apply Any of the Below Risk Factors Present?: No Other Risk Factors: No Thrombosis Risk Factor Assessment Level: Very Low Risk Assessment and Plan Plan: Covid 19 pneumonia: Patient will be continued on Decadron, and Remdesivir. Respiratory support as needed patient is presently on 2 L oxygen patient be closely monitored for any hypoxemia -Acute renal failure: Prerenal azotemia secondary to diarrhea patient was started on IV fluids hold off on her Lasix. -Hypovolemic hyponatremia: IV fluids as mentioned above -Diabetes mellitus 2: Patient blood sugars are low presently on these are expected to go up with Decadron. Patient's metformin will be held because of acute renal failure. -Hyperlipidemia -Hypertension Hyperlipidemia DVT prophylaxis with Lovenox
[2020-09-06] MEDS: ENOXAPARIN 60 MG/0.6 ML SYRINGE SQ SCH (14:44)
[2020-09-06] MEDS: dexAMETHasone 2 MG TAB PO SCH (14:45)
[2020-09-06] MEDS: ZINC SULFATE 220 MG CAP PO SCH (14:45)
--- NOTE | 2020-09-06 15:33 | P.CNPUL ---
History of Present Illness Consult date: 09/06/20 Requesting physician: Jean-Pierre Portillo Reason for consult: dyspnea Chief complaint: Dyspnea, weakness, fever and fatigue History of present illness: 59-year-old white female patient of Dr. Nicole Brantley the past medical history of hypertension, hyperlipidemia, diabetes mellitus type 2, GERD/reflux, history of lymphoma, depression, former smoker presented to the emergency department on 09/05/2020 with complaints of increasing shortness of breath, fever and fatigue. Patient was tested for COVID 19 on August 31 by her PCP and was found to be positive, he was started on oral steroids. Initially her symptoms started with sore throat, sinus pressure, congestive cough, nausea, vomiting and diarrhea. She states that several members of her pulse hold are also COVID positive. Denies any chest pain, denies any palpitations, no urinary symptoms, no abdominal pain. CT chest showed no acute pulmonary embolism, diffuse peripheral groundglass opacifications involving all lung lobes cons istent with multifocal infection, and small hiatal hernia. She was hypoxemic, he was placed on supplemental oxygen, is on 2 L of oxygen with a pulse ox of 90- 93%, afebrile. Patient was given some IV hydration in the emergency department, her IV fluids infusing at a rate of 100 ML per hour, she is on oral Pepcid, Lovenox 60 mg daily, oral Decadron, vitamin D, zinc supplement. D-dimer came back at 0.84, patient had lymphopenia and lymphocyte count of 0.5, sodium is 1:30, potassium is 4.3, 93, BUN of 37, creatinine is 1.25, LDH is 1138, CRP is 89.5, pro-calcitonin level is 0.12. Review of Systems All systems: negative Constitutional: Reports malaise, Reports weakness, Denies chills, Denies fever Eyes: denies blurred vision, denies pain Ears, nose, mouth and throat: Denies headache, Denies sore throat Cardiovascular: Denies chest pain, Denies shortness of breath Respiratory: Reports dyspnea, Denies cough Gastrointestinal: Denies abdominal pain, Denies diarrhea, Denies nausea, Denies vomiting Genitourinary: Denies dysuria, Denies hematuria Musculoskeletal: Denies myalgias Integumentary: Denies pruritus, Denies rash Neurological: Denies numbness, Denies weakness Psychiatric: Denies anxiety, Denies depression Endocrine: Denies fatigue, Denies weight change Past Medical History Past Medical History: Diabetes Mellitus, GERD/Reflux, Hyperlipidemia, Hypertension Additional Past Medical History / Comment(s): Lymphoma, vertigo, hemmorhoids, History of Any Multi-Drug Resistant Organisms: None Reported Past Surgical History: Section, Hysterectomy, Tonsillectomy Additional Past Surgical History / Comment(s): right total hip, right knee reduction, lymph node removed right side, Past Anesthesia/Blood Transfusion Reactions: No Reported Reaction Past Psychological History: Depression Smoking Status: Former smoker Past Alcohol Use History: Occasional Past Drug Use History: None Reported Medications and Allergies Home Medications Medication Instructions Recorded Confirmed Type Losartan-Hctz 50-12.5 mg [Hyzaar 1 tab PO DAILY 06/10/14 09/06/20 History 50-12.5] Pantoprazole Sodium [Protonix] 40 mg PO DAILY 05/10/15 09/06/20 History Pioglitazone HCl/Metformin HCl 2 tab PO DAILY 04/21/16 09/06/20 History [Pioglitazone-Metformin 15-850] Albuterol Nebulized [Ventolin 2.5 mg INHALATION RT-QID PRN 09/05/20 09/06/20 History Nebulized] Atorvastatin [Lipitor] 10 mg PO HS 09/05/20 09/06/20 History Cephalexin [Keflex] 500 mg PO BID 09/05/20 09/06/20 History Cholecalciferol [Vitamin D3 (25 4,000 unit PO DAILY 09/05/20 09/06/20 History Mcg = 1000 Iu)] Cinnamon Bark [Cinnamon] 500 mg PO DAILY 09/05/20 09/06/20 History Dulaglutide [Trulicity] 0.75 mg SQ WE 09/05/20 09/06/20 History Insulin Detemir [Levemir Flextouch] 50 units SQ DAILY 09/05/20 09/06/20 History Venlafaxine HCl [Effexor XR] 150 mg PO DAILY 09/05/20 09/06/20 History methylPREDNISolone [Medrol Dose See Taper PO DIRECTED 09/05/20 09/06/20 History Pack] Allergies Allergy/AdvReac Type Severity Reaction Status Date / Time No Known Allergies Allergy Verified 09/05/20 23:57 Physical Exam Vitals: Vital Signs Temp Pulse Pulse Resp BP BP Pulse Ox 09/06/20 14:57 98.4 F 77 18 166/66 93 L 09/06/20 11:00 98.8 F 74 20 123/65 93 L 09/06/20 07:12 20 09/06/20 07:00 98 F 71 18 124/67 94 L 09/06/20 03:35 98.4 F 77 20 109/62 90 L 09/06/20 02:56 18 09/06/20 02:25 98.7 F 71 19 131/74 97 09/06/20 01:00 98.6 F 79 20 127/61 94 L 09/05/20 23:30 79 20 127/61 97 09/05/20 22:30 76 20 118/55 97 09/05/20 21:25 22 09/05/20 20:40 97.5 F L 91 26 H 107/75 90 L Intake and Output 09/06/20 09/06/20 09/06/20 06:59 14:59 22:59 Intake Total 450 Balance 450 Intake: Intake, IV Titration 150 Amount Sodium Chloride 0.9% 1, 150 000 ml @ 100 mls/hr IV . Q10H [facility] Rx#:[id number] Oral 300 Other: Voiding Method Bedside Commode # Voids 1 3 # Bowel Movements 1 Weight 133.81 kg GENERAL EXAM: Alert, 59-year-old white female, on 2 l/min with a pulse ox of 90-93%, comfortable in no apparent distress. HEAD: Normocephalic/atraumatic. EYES: Normal reaction of pupils, equal size. Conjunctiva pink, sclera white. NOSE: Clear with pink turbinates. THROAT: No erythema or exudates. NECK: No masses, no JVD, no thyroid enlargement, no adenopathy. CHEST: No chest wall deformity. Symmetrical expansion. LUNGS: Equal air entry with basilar crackles, but no wheeze, rhonchi or dullness. CVS: Regular rate and rhythm, normal S1 and S2, no gallops, no murmurs, no rubs ABDOMEN: Soft, nontender. No hepatosplenomegaly, normal bowel sounds, no guarding or rigidity. EXTREMITIES: No clubbing, no edema, no cyanosis, 2+ pulses and upper and lower extremities. MUSCULOSKELETAL: Muscle strength and tone normal. SPINE: No scoliosis or deformity SKIN: No rashes CENTRAL NERVOUS SYSTEM: Alert and oriented -3. No focal deficits, tone is normal in all 4 extremities. PSYCHIATRIC: Alert and oriented -3. Appropriate affect. Intact judgment and insight. Results - Laboratory Findings CBC and BMP: 09/05/20 23:15 09/05/20 23:15 PT/INR, D-dimer PT 9.4 sec (9.0-12.0) 09/05/20 23:15 INR 0.9 (<1.2) 09/05/20 23:15 D-Dimer 0.84 mg/L FEU (<0.60) H 09/05/20 23:15 Abnormal lab findings: Abnormal Labs 09/05/20 09/05/20 09/05/20 23:15 23:15 23:15 Neutrophils # 7.9 H Lymphocytes # 0.5 L D-Dimer 0.84 H Sodium 130 L Chloride 93 L BUN 37 H Creatinine 1.25 H Glucose 408 H POC Glucose (mg/dL) Ferritin 539.6 H AST 38 H Lactate Dehydrogenase 1138 H C-Reactive Protein 89.5 H Procalcitonin Urine Appearance Urine Protein Urine Glucose (UA) Urine Ketones Urine Blood Ur Leukocyte Esterase Urine WBC Urine Bacteria Urine Mucus 09/05/20 09/06/20 09/06/20 23:15 00:12 00:23 Neutrophils # Lymphocytes # D-Dimer Sodium Chloride BUN Creatinine Glucose POC Glucose (mg/dL) 392 H Ferritin AST Lactate Dehydrogenase C-Reactive Protein Procalcitonin 0.12 H Urine Appearance Cloudy H Urine Protein 1+ H Urine Glucose (UA) 4+ H Urine Ketones 1+ H Urine Blood Trace H Ur Leukocyte Esterase Moderate H Urine WBC 23 H Urine Bacteria Moderate H Urine Mucus Rare H 09/06/20 09/06/20 01:54 11:11 Neutrophils # Lymphocytes # D-Dimer Sodium Chloride BUN Creatinine Glucose POC Glucose (mg/dL) 328 H 114 H Ferritin AST Lactate Dehydrogenase C-Reactive Protein Procalcitonin Urine Appearance Urine Protein Urine Glucose (UA) Urine Ketones Urine Blood Ur Leukocyte Esterase Urine WBC Urine Bacteria Urine Mucus - Diagnostic Findings Chest x-ray: report reviewed, image reviewed Assessment and Plan Plan: Assessment: #1. Acute COVID 19 related pneumonitis #2. Dyspnea, and acute hypoxic respiratory failure due to the above, tested positive on August 31 for blood 19 related infection #3. Increased inflammatory markers related to the above #4. Mild hyponatremia related to nausea vomiting and diarrhea related to acute COVID 19 related infection #5. Hypertension #6. Hyperlipidemia #7. Diabetes multiple type II #8. GERD/reflux #9. History of lymphoma #10. Former smoker #11. Depression Plan: Continue oral Decadron, continue Pepcid, Lovenox, we'll add Remdesivir, continue IV hydration. Follow inflammatory markers, monitor oxygenation pattern, and febrile pattern, monitor dyspnea, we'll continue to follow I performed a history & physical examination of the patient and discussed their management with my nurse practitioner, Fatuma Alfonso. I reviewed the nurse practitioner's note and agree with the documented findings and plan of care. Lung sounds are positive for basilar crackles. The findings and the impression was discussed with the patient. I attest to the documentation by the nurse practitioner. Time with Patient: Greater than 30
[2020-09-06 16:27] LABS: Glucose,Whole Blood 107 mg/dL (75-99)
[2020-09-06] MEDS: TRIMETHOBENZAMIDE 300 MG CAP PO PRN (18:26)
[2020-09-06 20:20] LABS: Glucose,Whole Blood 135 mg/dL (75-99)
[2020-09-06] MEDS: ATORVASTATIN 10 MG TAB PO SCH (20:50)
[2020-09-06] MEDS: MELATONIN 5 MG TABLET PO SCH (20:50)
--- NOTE | 2020-09-07 02:39 | CONS ---
CONSULTATION DATE OF SERVICE: 09/06/2020 REASON FOR CONSULTATION: COVID-19 pneumonia. HISTORY OF PRESENT ILLNESS: The patient is a 59-year-old female who started getting sick about 2 weeks ago has been mostly URI symptoms and some shortness of breath. The patient did have a COVID-19 testing done by her primary care physician on August 31 which came back positive and the patient was started on steroids. However, the patient did not have any significant improvement in symptomatology. The patient denies having any headache or urinary symptoms. She has been complaining of mostly shortness of breath on minimal exertion even at rest. The patient also had a cough, moderate in intensity, not bringing up any sputum. No nausea, no vomiting. No abdominal pain. Did have some diarrhea. With these symptoms, the patient was evaluated by the ER physician. On arrival to the ER, the patient was afebrile. The patient noticed to be hypoxic, requiring supplemental oxygen. The patient did have a normal white count with lymphopenia. D-dimer was elevated. AST 38. LDH was 1138. CRP is 89.5. Urine was positive as well. No significant urinary symptoms though. The patient did have a CT angiogram of the chest, which was negative for PE, did show diffuse peripheral ground- glass opacities consistent with multifocal infection. The patient was admitted to the hospital. Infectious Disease was consulted. The patient was started on dexamethasone, Lovenox and zinc. Pulmonary saw the patient and started the patient on remdesivir. REVIEW OF SYSTEMS: Positive points have been mentioned in HPI. Rest of systems are negative. PAST MEDICAL HISTORY: Her past medical history is significant for diabetes, hypertension, hyperlipidemia, gastroesophageal reflux disease, lymphoma. PAST SURGICAL HISTORY: , hysterectomy, tonsillectomy,total right hip. SOCIAL HISTORY: Remote history of smoking. Occasionally drinks. No drug use. FAMILY HISTORY: No pertinent findings noticed. ALLERGIES: No known drug allergies. MEDICATIONS: Medications include the patient is currently on Tylenol, Lipitor, dexamethasone, Lovenox, Pepcid, NovoLog, Levemir, melatonin, Narcan, Actos, remdesivir, Tigan, Effexor, zinc sulfate. PHYSICAL EXAMINATION: Blood pressure 120/74 with a pulse of 72, temperature 98.7. She is 92% on 2 L nasal cannula. General description is a middle-aged female up in the bed in no distress. No tachypnea or accessory muscles of respiration use. HEENT: Examination shows no pallor or scleral icterus. Oral mucous membranes moist. NECK: Trachea central, no thyromegaly. LUNGS: Unlabored breathing, decreased intensity of breath sounds. No wheeze. HEART: S1, S2. Regular rate and rhythm. ABDOMEN: Soft, no tenderness. No guarding or rigidity. EXTREMITIES: No edema of feet. SKIN EXAMINATION: No rash or mass palpable. NEUROLOGICAL: Patient is awake, alert, oriented x3. Mood and affect normal. LABS: Hemoglobin is 12.6, white count 8.8. BUN of 37, creatinine 1.25. Electrolytes have been normal. Inflammatory markers elevated. DIAGNOSTIC IMPRESSION: Patient admitted to the hospital with increasing shortness of breath in this patient who has been going on for almost 2 weeks with diagnosis of COVID-19 on the , failing outpatient oral steroid therapy with evidence of multifocal pneumonia on the CT angiogram. PLAN: 1. The patient started on dexamethasone, Lovenox, zinc sulfate. 2. Remdesivir started by Pulmonary, will see response. 3. Droplet isolation and respiratory support. 4. We will follow on clinical condition and further adjust medication if needed. Thank you for this consultation. Will follow this patient along with you. MMODL / IJN: [id number] /
[2020-09-07 06:57] LABS: Glucose,Whole Blood 167 mg/dL (75-99)
[2020-09-07] MEDS: PIOGLITAZONE 15 MG TAB PO SCH (08:23)
[2020-09-07] MEDS: INSULIN DETEMIR (LEVEMIR) 100 UNIT/ML SYR SQ SCH (08:23)
[2020-09-07] MEDS: dexAMETHasone 2 MG TAB PO SCH (08:23)
[2020-09-07] MEDS: VENLAFAXINE HCL ER 150 MG CAP PO SCH (08:23)
[2020-09-07] MEDS: FAMOTIDINE 20 MG TAB PO SCH (08:23)
[2020-09-07] MEDS: CHOLECALCIFEROL 1,000 UNIT TAB PO SCH (08:23)
[2020-09-07] MEDS: ZINC SULFATE 220 MG CAP PO SCH (08:23)
[2020-09-07] MEDS: ENOXAPARIN 60 MG/0.6 ML SYRINGE SQ SCH (08:24)
[2020-09-07] MEDS: INSULIN ASPART (NovoLOG) 100 UNIT/ML VIAL SQ SCH ×4 (08:24→21:13)
[2020-09-07] MEDS: SODIUM CHLORIDE 0.9% 1,000 ML IV SCH ×3 (08:25→21:20)
[2020-09-07 11:26] LABS: African American GFR (CKD) 66 (>60 ml/min/1.73 sqM); Anion Gap 7 mmol/L; Blood Urea Nitrogen 35 mg/dL (7-17); Carbon Dioxide 29 mmol/L (22-30); Chloride 97 mmol/L (98-107); Glucose 177 mg/dL (74-99); Non-African American GFR(CKD) 57 (>60 ml/min/1.73 sqM); Potassium 4.2 mmol/L (3.5-5.1); Sodium 133 mmol/L (137-145)
[2020-09-07 11:31] LABS: Glucose,Whole Blood 165 mg/dL (75-99)
--- NOTE | 2020-09-07 12:23 | P.PN ---
Subjective 59-year-old female presents to the emergency department with complaints of increasing shortness of breath, fever, and fatigue. Patient states she was diagnosed with COVID on August 31 by her primary care provider and is currently on an oral steroid but is feeling worse. Patient states symptoms began 2 weeks ago with sinus pressure followed by a congested cough, nausea, vomiting, and diarrhea. Reports several members of her household are also COVID positive. Patient denies any recent rash, chest pain, abdominal pain, constipation, back pain, numbness, tingling, dizziness, hematuria, dysuria, urinary urgency, urinary frequency, headache, visual changes, or any other complaints. Her diarrhea presently improved. 09/07/2020 Patient's serum sodium did improve presently 133 creatinine improved from 1.25- 1.06 patient will be continued on IV fluids and patient is feeling bit better today but still on 2 L of oxygen saturating 91%, patient is on oral steroids and the is on Remdesivir more day2. Blood sugars are fairly controlled Constitutional: Better today Cardio vascular: denied any chest pain, palpitations Gastrointestinal denied any nausea vomiting Pulmonary: Denied any shortness of breath cough Neurologic denied any new focal deficits All inpatient medications were reviewed and appropriate changes in these medications as dictated in the interval history and assessment and plan. Objective - Vital Signs Vital signs: Vital Signs Temp 98 F 09/07/20 09:47 Pulse 64 09/07/20 09:47 Resp 17 09/07/20 09:47 BP 124/70 09/07/20 09:47 Pulse Ox 91 L 09/07/20 09:47 Intake & Output 09/06/20 09/07/20 09/07/20 18:59 06:59 18:59 Intake Total 1800 350 Balance 1800 350 Intake: IV 350 Remdesivir (Eua) 100 mg 250 In Sodium Chloride 0.9% 250 ml @ 250 mls/hr IVPB Q24H [facility] Rx#:[id number] Sodium Chloride 0.9% 1, 100 000 ml @ 100 mls/hr IV . Q10H [facility] Rx#:[id number] Intake, IV Titration 1400 Amount Sodium Chloride 0.9% 1, 1400 000 ml @ 100 mls/hr IV . Q10H [facility] Rx#:[id number] Oral 400 Other: Voiding Method Bedside Commode # Voids 3 1 # Bowel Movements 1 - Exam PHYSICAL EXAMINATION: GENERAL: The patient is alert and oriented x3, not in any acute distress. Well developed, well nourished. HEENT: Pupils are round and equally reacting to light. EOMI. No scleral icterus. No conjunctival pallor. Normocephalic, atraumatic. No pharyngeal erythema. No thyromegaly. CARDIOVASCULAR: S1 and S2 present. No murmurs, rubs, or gallops. PULMONARY: Chest is clear to auscultation, no wheezing or crackles. ABDOMEN: Soft, nontender, nondistended, normoactive bowel sounds. No palpable organomegaly. MUSCULOSKELETAL: No joint swelling or deformity. EXTREMITIES: No cyanosis, clubbing, or pedal edema. NEUROLOGICAL: Gross neurological examination did not reveal any focal deficits. SKIN: No rashes. Note: Because of COVID 19 isolation, some of the history and physical exam f indings are indirect and obtained from nursing staff, and other physician examinations to avoid unnecessary contact with the patient. - Labs CBC & Chem 7: 09/05/20 23:15 09/07/20 10:42 Labs: Abnormal Lab Results - Last 24 Hours (Table) 09/05/20 09/06/20 09/06/20 Range/Units 23:15 16:26 20:18 Sodium (137-145) mmol/L Chloride (98-107) mmol/L BUN (7-17) mg/dL Creatinine (0.52-1.04) mg/dL Glucose (74-99) mg/dL POC Glucose (mg/dL) 107 H 135 H (75-99) mg/dL Procalcitonin 0.12 H (0.02-0.09) ng/mL 09/07/20 09/07/20 09/07/20 Range/Units 06:54 10:42 11:28 Sodium 133 L (137-145) mmol/L Chloride 97 L (98-107) mmol/L BUN 35 H (7-17) mg/dL Creatinine 1.06 H (0.52-1.04) mg/dL Glucose 177 H (74-99) mg/dL POC Glucose (mg/dL) 167 H 165 H (75-99) mg/dL Procalcitonin (0.02-0.09) ng/mL Microbiology - Last 24 Hours (Table) 09/05/20 23:15 Blood Culture - Preliminary Blood No Growth after 24 hours 09/06/20 00:12 Urine Culture - Preliminary Urine,Clean Catch Assessment and Plan Plan: Covid 19 pneumonia: Patient will be continued on Decadron, and Remdesivir. Respiratory support as needed patient is presently on 2 L oxygen patient be closely monitored for any hypoxemia -Acute renal failure: Prerenal azotemia secondary to diarrhea patient was started on IV fluids hold off on her Lasix. -Hypovolemic hyponatremia: IV fluids as mentioned above -Diabetes mellitus 2: Patient blood sugars are low presently on these are expected to go up with Decadron. Patient's metformin will be held because of acute renal failure. -Hyperlipidemia -Hypertension Hyperlipidemia DVT prophylaxis with Lovenox
[2020-09-07] MEDS: REMDESIVIR (EUA) 100 MG in SODIUM CHLORIDE 0.9% 250 ML IVPB SCH (13:11)
[2020-09-07] MEDS: ACETAMINOPHEN TAB 325 MG TAB PO PRN (15:02)
[2020-09-07] MEDS: TRIMETHOBENZAMIDE 300 MG CAP PO PRN (15:02)
--- NOTE | 2020-09-07 15:55 | P.PN ---
Subjective Progress Note Date: 09/07/20 Principal diagnosis: Dyspnea, weakness, fever and fatigue 59-year-old white female patient of Dr. Nicole Brantley the past medical history of hypertension, hyperlipidemia, diabetes mellitus type 2, GERD/reflux, history of lymphoma, depression, former smoker presented to the emergency department on 09/05/2020 with complaints of increasing shortness of breath, fever and fatigue. Patient was tested for COVID 19 on August 31 by her PCP and was found to be positive, he was started on oral steroids. Initially her symptoms started with sore throat, sinus pressure, congestive cough, nausea, vomiting and diarrhea. She states that several members of her pulse hold are also COVID positive. Denies any chest pain, denies any palpitations, no urinary symptoms, no abdominal pain. CT chest showed no acute pulmonary embolism, diffuse peripheral groundglass opacifications involving all lung lobes consistent with multifocal infection, and small hiatal hernia. She was hypoxemic, he was placed on supplemental oxygen, is on 2 L of oxygen with a pulse ox of 90-93%, afebrile. Main gomes was given some IV hydration in the emergency department, her IV fluids infusing at a rate of 100 ML per hour, she is on oral Pepcid, Lovenox 60 mg daily, oral Decadron, vitamin D, zinc supplement. D-dimer came back at 0.84, patient had lymphopenia and lymphocyte count of 0.5, sodium is 1:30, potassium is 4.3, 93, BUN of 37, creatinine is 1.25, LDH is 1138, CRP is 89.5, pro- calcitonin level is 0.12. On 09/07/2020 patient seen in follow-up on medical surgical floor. She is 71 (doesn't appear, she is on 2 L of oxygen pulse ox of 93%, she's been afebrile, she feels better, she is a mild case of COVID 19 pneumonia, no complaints chest pain, no palpitations, no nausea or vomiting. Urine culture is showing gram- negative bacilli. Blood culture show no growth Objective - Vital Signs Vital signs: Vital Signs Temp 98 F 09/07/20 14:12 Pulse 70 09/07/20 14:12 Resp 17 09/07/20 14:12 BP 138/68 09/07/20 14:12 Pulse Ox 91 L 09/07/20 14:12 Intake & Output 09/06/20 09/07/20 09/07/20 18:59 06:59 18:59 Intake Total 1800 350 Balance 1800 350 Intake: IV 350 Remdesivir (Eua) 100 mg 250 In Sodium Chloride 0.9% 250 ml @ 250 mls/hr IVPB Q24H [facility] Rx#:[id number] Sodium Chloride 0.9% 1, 100 000 ml @ 100 mls/hr IV . Q10H [facility] Rx#:[id number] Intake, IV Titration 1400 Amount Sodium Chloride 0.9% 1, 1400 000 ml @ 100 mls/hr IV . Q10H [facility] Rx#:[id number] Oral 400 Other: Voiding Method Bedside Commode # Voids 3 1 # Bowel Movements 1 - Exam GENERAL EXAM: Alert, 59-year-old white female, on 2 l/min with a pulse ox of 90- 93%, comfortable in no apparent distress. HEAD: Normocephalic/atraumatic. EYES: Normal reaction of pupils, equal size. Conjunctiva pink, sclera white. NOSE: Clear with pink turbinates. THROAT: No erythema or exudates. NECK: No masses, no JVD, no thyroid enlargement, no adenopathy. CHEST: No chest wall deformity. Symmetrical expansion. LUNGS: Equal air entry with basilar crackles, but no wheeze, rhonchi or dul lness. CVS: Regular rate and rhythm, normal S1 and S2, no gallops, no murmurs, no rubs ABDOMEN: Soft, nontender. No hepatosplenomegaly, normal bowel sounds, no guarding or rigidity. EXTREMITIES: No clubbing, no edema, no cyanosis, 2+ pulses and upper and lower extremities. MUSCULOSKELETAL: Muscle strength and tone normal. SPINE: No scoliosis or deformity SKIN: No rashes CENTRAL NERVOUS SYSTEM: Alert and oriented -3. No focal deficits, tone is normal in all 4 extremities. PSYCHIATRIC: Alert and oriented -3. Appropriate affect. Intact judgment and insight. - Labs CBC & Chem 7: 09/05/20 23:15 09/07/20 10:42 Labs: Abnormal Lab Results - Last 24 Hours (Table) 09/06/20 09/06/20 09/07/20 Range/Units 16:26 20:18 06:54 Sodium (137-145) mmol/L Chloride (98-107) mmol/L BUN (7-17) mg/dL Creatinine (0.52-1.04) mg/dL Glucose (74-99) mg/dL POC Glucose (mg/dL) 107 H 135 H 167 H (75-99) mg/dL 09/07/20 09/07/20 Range/Units 10:42 11:28 Sodium 133 L (137-145) mmol/L Chloride 97 L (98-107) mmol/L BUN 35 H (7-17) mg/dL Creatinine 1.06 H (0.52-1.04) mg/dL Glucose 177 H (74-99) mg/dL POC Glucose (mg/dL) 165 H (75-99) mg/dL Microbiology - Last 24 Hours (Table) 09/06/20 00:12 Urine Culture - Preliminary Urine,Clean Catch Gram Neg Bacilli 09/05/20 23:15 Blood Culture - Preliminary Blood No Growth after 24 hours Assessment and Plan Plan: Assessment: #1. Acute COVID 19 related pneumonitis #2. Dyspnea, and acute hypoxic respiratory failure due to the above, tested positive on August 31 for blood 19 related infection #3. Increased inflammatory markers related to the above #4. Mild hyponatremia related to nausea vomiting and diarrhea related to acute COVID 19 related infection, improving #5. Hypertension #6. Hyperlipidemia #7. Diabetes multiple type II #8. GERD/reflux #9. History of lymphoma #10. Former smoker #11. Depression #12. Acute urinary tract infection, with the culture positive for gram-negative rods, final culture is pending Plan: Continue with Remdesivir treatment, continue oral Decadron, we will add Rocephin for possibility of underlying urinary tract infection, awaiting final culture, vital signs are stable, no worsening dyspnea, we'll continue to follow I performed a history & physical examination of the patient and discussed their management with my nurse practitioner, Fatuma Alfonso. I reviewed the nurse practitioner's note and agree with the documented findings and plan of care. Lung sounds are positive for basilar crackles. The findings and the impression was discussed with the patient. I attest to the documentation by the nurse practitioner. Time with Patient: Less than 30
[2020-09-07 17:09] LABS: Glucose,Whole Blood 227 mg/dL (75-99)
[2020-09-07 20:56] LABS: Glucose,Whole Blood 258 mg/dL (75-99)
[2020-09-07] MEDS: ATORVASTATIN 10 MG TAB PO SCH (21:13)
[2020-09-07] MEDS: MELATONIN 5 MG TABLET PO SCH (21:13)
--- NOTE | 2020-09-08 06:09 | PN ---
PROGRESS NOTE DATE OF SERVICE: 09/07/2020 REASON FOR FOLLOWUP: Acute COVID-19 pneumonia. INTERVAL HISTORY: Patient is currently afebrile. Patient is breathing more comfortably. Patient denies having any chest pain. Clearly has a cough, not bringing up any sputum. No nausea, no vomiting. No abdominal pain. No diarrhea. PHYSICAL EXAMINATION: On examination, blood pressure 134/83 with a pulse of 73, temperature 97.5. She is 93% on 2 L nasal cannula. General description is a middle-aged female lying in bed in no distress. Respiratory system: Unlabored breathing, decreased intensity of breath sounds. No wheeze. HEART: S1, S2. Regular rhythm and rate. Abdomen is soft, no tenderness. LABS: BUN of 35, creatinine 1.06. Urine showing Gram-negative. IMPRESSION/PLAN: 1. Patient with acute COVID-19 pneumonia. This patient currently is covered with Remdesivir, dexamethasone, Lovenox . 2. Patient with urinary tract infection, covered with Rocephin while waiting for the urine culture to finalize. MMODL / IJN: [id number] /
[2020-09-08 07:17] LABS: Glucose,Whole Blood 79 mg/dL (75-99)
[2020-09-08] MEDS: INSULIN ASPART (NovoLOG) 100 UNIT/ML VIAL SQ SCH ×4 (07:18→21:02)
[2020-09-08] MEDS: dexAMETHasone 2 MG TAB PO SCH (07:52)
[2020-09-08] MEDS: CHOLECALCIFEROL 1,000 UNIT TAB PO SCH (07:52)
[2020-09-08] MEDS: FAMOTIDINE 20 MG TAB PO SCH (07:54)
[2020-09-08] MEDS: ZINC SULFATE 220 MG CAP PO SCH (07:54)
[2020-09-08] MEDS: VENLAFAXINE HCL ER 150 MG CAP PO SCH (07:54)
[2020-09-08] MEDS: ENOXAPARIN 60 MG/0.6 ML SYRINGE SQ SCH (07:56)
[2020-09-08] MEDS: PIOGLITAZONE 15 MG TAB PO SCH (07:57)
[2020-09-08] MEDS: INSULIN DETEMIR (LEVEMIR) 100 UNIT/ML SYR SQ SCH (08:44)
[2020-09-08 11:52] LABS: African American GFR (CKD) 70.9 (60.0-200.0); Calcium 9.3 mg/dL (8.7-10.3); Non-African American GFR(CKD) 61.2 (60.0-200.0); Potassium 3.8 mmol/L (3.5-5.5)
[2020-09-08 12:07] LABS: Glucose,Whole Blood 191 mg/dL (75-99)
[2020-09-08] MEDS: REMDESIVIR (EUA) 100 MG in SODIUM CHLORIDE 0.9% 250 ML IVPB SCH (15:37)
[2020-09-08] MEDS: SODIUM CHLORIDE 0.9% 1,000 ML IV SCH ×2 (15:37→21:03)
--- NOTE | 2020-09-08 15:52 | P.PN ---
Subjective 59-year-old female presents to the emergency department with complaints of increasing shortness of breath, fever, and fatigue. Patient states she was diagnosed with COVID on August 31 by her primary care provider and is currently on an oral steroid but is feeling worse. Patient states symptoms began 2 weeks ago with sinus pressure followed by a congested cough, nausea, vomiting, and diarrhea. Reports several members of her household are also COVID positive. Patient denies any recent rash, chest pain, abdominal pain, constipation, back pain, numbness, tingling, dizziness, hematuria, dysuria, urinary urgency, urinary frequency, headache, visual changes, or any other complaints. Her diarrhea presently improved. 09/07/2020 Patient's serum sodium did improve presently 133 creatinine improved from 1.25- 1.06 patient will be continued on IV fluids and patient is feeling bit better today but still on 2 L of oxygen saturating 91%, patient is on oral steroids and the is on Remdesivir more day2. Blood sugars are fairly controlled 09/08/2020 Patient is fairly stable is immune improvement or worsening in her clinical condition. If patient can use to be stable or improves patient probably will be discharged after she completes therapy with Remdesivir most probably will need oxygen upon discharge. Constitutional: Better today Cardio vascular: denied any chest pain, palpitations Gastrointestinal denied any nausea vomiting Pulmonary: Denied any shortness of breath cough Neurologic denied any new focal deficits All inpatient medications were reviewed and appropriate changes in these medications as dictated in the interval history and assessment and plan. Objective - Vital Signs Vital signs: Vital Signs Temp 97.8 F 09/08/20 10:00 Pulse 69 09/08/20 10:00 Resp 16 09/08/20 10:00 BP 116/68 09/08/20 10:00 Pulse Ox 92 L 09/08/20 10:00 Intake & Output 09/07/20 09/08/20 09/08/20 18:59 06:59 18:59 Intake Total 350 600 320 Balance 350 600 320 Intake: IV 350 Remdesivir (Eua) 100 mg 250 In Sodium Chloride 0.9% 250 ml @ 250 mls/hr IVPB Q24H [facility] Rx#:[id number] Sodium Chloride 0.9% 1, 100 000 ml @ 100 mls/hr IV . Q10H [facility] Rx#:[id number] Intake, IV Titration 600 Amount cefTRIAXone 1 gm In 600 Sodium Chloride 0.9% 50 ml @ 100 mls/hr IVPB Q24HR [facility] Rx#:[id number] Oral 320 Other: Voiding Method Bedside Commode Bedside Commode # Voids 1 2 - Exam PHYSICAL EXAMINATION: GENERAL: The patient is alert and oriented x3, not in any acute distress. Well developed, well nourished. HEENT: Pupils are round and equally reacting to light. EOMI. No scleral icterus. No conjunctival pallor. Normocephalic, atraumatic. No pharyngeal erythema. No thyromegaly. CARDIOVASCULAR: S1 and S2 present. No murmurs, rubs, or gallops. PULMONARY: Chest is clear to auscultation, no wheezing or crackles. ABDOMEN: Soft, nontender, nondistended, normoactive bowel sounds. No palpable organomegaly. MUSCULOSKELETAL: No joint swelling or deformity. EXTREMITIES: No cyanosis, clubbing, or pedal edema. NEUROLOGICAL: Gross neurological examination did not reveal any focal deficits. SKIN: No rashes. Note: Because of COVID 19 isolation, some of the history and physical exam findings are indirect and obtained from nursing staff, and other physician examinations to avoid unnecessary contact with the patient. - Labs CBC & Chem 7: 09/05/20 23:15 09/08/20 06:17 Labs: Abnormal Lab Results - Last 24 Hours (Table) 09/07/20 09/07/20 09/08/20 Range/Units 17:08 20:54 06:17 BUN 30.0 H (9.0-27.0) mg/dL BUN/Creatinine Ratio 30.00 H (12.00-20.00) Ratio POC Glucose (mg/dL) 227 H 258 H (75-99) mg/dL 09/08/20 Range/Units 12:03 BUN (9.0-27.0) mg/dL BUN/Creatinine Ratio (12.00-20.00) Ratio POC Glucose (mg/dL) 191 H (75-99) mg/dL Microbiology - Last 24 Hours (Table) 09/05/20 23:15 Blood Culture - Preliminary Blood No Growth after 48 hours 09/06/20 00:12 Urine Culture - Preliminary Urine,Clean Catch Gram Neg Bacilli Assessment and Plan Plan: Covid 19 pneumonia: Patient will be continued on Decadron, and Remdesivir. Respiratory support as needed patient is presently on 2 L oxygen patient be closely monitored for any hypoxemia -Acute renal failure: Prerenal azotemia secondary to diarrhea patient was started on IV fluids hold off on her Lasix. -Hypovolemic hyponatremia: IV fluids as mentioned above -Diabetes mellitus 2: Patient blood sugars are low presently on these are expected to go up with Decadron. Patient's metformin will be held because of acute renal failure. -Hyperlipidemia -Hypertension Hyperlipidemia DVT prophylaxis with Lovenox
[2020-09-08 17:06] LABS: Glucose,Whole Blood 276 mg/dL (75-99)
--- NOTE | 2020-09-08 17:37 | P.PN ---
Subjective Progress Note Date: 09/08/20 59-year-old white female patient of Dr. Nicole Brantley the past medical history of hypertension, hyperlipidemia, diabetes mellitus type 2, GERD/reflux, history of lymphoma, depression, former smoker presented to the emergency department on 09/05/2020 with complaints of increasing shortness of breath, fever and fatigue. Patient was tested for COVID 19 on August 31 by her PCP and was found to be positive, he was started on oral steroids. Initially her symptoms started with sore throat, sinus pressure, congestive cough, nausea, vomiting and diarrhea. She states that several members of her pulse hold are also COVID positive. Denies any chest pain, denies any palpitations, no urinary symptoms, no abdominal pain. CT chest showed no acute pulmonary embolism, diffuse peripheral groundglass opacifications involving all lung lobes consistent with multifocal infection, and small hiatal hernia. She was hypoxemic, he was placed on supplemental oxygen, is on 2 L of oxygen with a pulse ox of 90-93%, afebrile. Patient was given some IV hydration in the emergency department, her IV fluids infusing at a rate of 100 ML per hour, she is on oral Pepcid, Lovenox 60 mg daily, oral Decadron, vitamin D, zinc supplement. D-dimer came back at 0.84, patient had lymphopenia and lymphocyte count of 0.5, sodium is 1:30, potassium is 4.3, 93, BUN of 37, creatinine is 1.25, LDH is 1138, CRP is 89.5, pro- calcitonin level is 0.12. On 09/07/2020 patient seen in follow-up on medical surgical floor. She is 71 (doesn't appear, she is on 2 L of oxygen pulse ox of 93%, she's been afebrile, she feels better, she is a mild case of COVID 19 pneumonia, no complaints chest pain, no palpitations, no nausea or vomiting. Urine culture is showing gram- negative bacilli. Blood culture show no growth 09/08/2020, the patient's condition is still stable on 2 L of oxygen by nasal cannula. She is feeling weak and tired and fatigued. Nevertheless, no fever, no worsening shortness of breath and the patient continues to be on 2 L of oxygen by nasal cannula. She remains on the routine treatment for coronavirus Covid 19 related infection and the patient is on a combination of Remdesivir and Decadron and the patient is also on Lovenox 60 mg subcu every 24 hours. No other new complaints. The white cell count from yesterday was 8.8. BUN and creatinine was within normal limits. Electrolytes was within normal limits. Objective - Vital Signs Vital signs: Vital Signs Temp 97.8 F 09/08/20 10:00 Pulse 69 09/08/20 16:00 Resp 16 09/08/20 16:00 BP 116/68 09/08/20 10:00 Pulse Ox 92 L 09/08/20 10:00 Intake & Output 09/07/20 09/08/20 09/08/20 18:59 06:59 18:59 Intake Total 350 600 320 Balance 350 600 320 Intake: IV 350 Remdesivir (Eua) 100 mg 250 In Sodium Chloride 0.9% 250 ml @ 250 mls/hr IVPB Q24H [facility] Rx#:[id number] Sodium Chloride 0.9% 1, 100 000 ml @ 100 mls/hr IV . Q10H [facility] Rx#:[id number] Intake, IV Titration 600 Amount cefTRIAXone 1 gm In 600 Sodium Chloride 0.9% 50 ml @ 100 mls/hr IVPB Q24HR [facility] Rx#:[id number] Oral 320 Other: Voiding Method Bedside Commode Bedside Commode # Voids 1 2 - Exam GENERAL EXAM: Alert, 59-year-old white female, on 2 l/min with a pulse ox of 90- 93%, comfortable in no apparent distress. HEAD: Normocephalic/atraumatic. EYES: Normal reaction of pupils, equal size. Conjunctiva pink, sclera white. NOSE: Clear with pink turbinates. THROAT: No erythema or exudates. NECK: No masses, no JVD, no thyroid enlargement, no adenopathy. CHEST: No chest wall deformity. Symmetrical expansion. LUNGS: Equal air entry with basilar crackles, but no wheeze, rhonchi or dullness. CVS: Regular rate and rhythm, normal S1 and S2, no gallops, no murmurs, no rubs ABDOMEN: Soft, nontender. No hepatosplenomegaly, normal bowel sounds, no guarding or rigidity. EXTREMITIES: No clubbing, no edema, no cyanosis, 2+ pulses and upper and lower extremities. MUSCULOSKELETAL: Muscle strength and tone normal. SPINE: No scoliosis or deformity SKIN: No rashes CENTRAL NERVOUS SYSTEM: Alert and oriented -3. No focal deficits, tone is normal in all 4 extremities. PSYCHIATRIC: Alert and oriented -3. Appropriate affect. Intact judgment and insight. - Labs CBC & Chem 7: 09/05/20 23:15 09/08/20 06:17 Labs: Abnormal Lab Results - Last 24 Hours (Table) 09/07/20 09/08/20 09/08/20 Range/Units 20:54 06:17 12:03 BUN 30.0 H (9.0-27.0) mg/dL BUN/Creatinine Ratio 30.00 H (12.00-20.00) Ratio POC Glucose (mg/dL) 258 H 191 H (75-99) mg/dL 09/08/20 Range/Units 17:03 BUN (9.0-27.0) mg/dL BUN/Creatinine Ratio (12.00-20.00) Ratio POC Glucose (mg/dL) 276 H (75-99) mg/dL Microbiology - Last 24 Hours (Table) 09/05/20 23:15 Blood Culture - Preliminary Blood No Growth after 48 hours 09/06/20 00:12 Urine Culture - Preliminary Urine,Clean Catch Gram Neg Bacilli Assessment and Plan Plan: #1. Acute COVID 19 related pneumonitis, currently stable on 2 L of oxygen by nasal cannula #2. Dyspnea, and acute hypoxic respiratory failure due to the above, tested positive on August 31 2020, the patient is stable for now on 2 L of oxygen by nasal cannula #3. Increased inflammatory markers related to the above #4. Mild hyponatremia, recovered and normalized #5. Hypertension #6. Hyperlipidemia #7. Diabetes multiple type II #8. GERD/reflux #9. History of lymphoma #10. Former smoker #11. Depression #12. Acute urinary tract infection, with the culture positive for gram-negative rods, final culture is pending, The patient is currently on IV Rocephin Plan: Clinically stable Continued IV Rocephin Continue treatment of Covid 19 with a combination of by mouth Decadron and R emdesivir Monitor the oxygenation keep the patient liters of oxygen by nasal cannula Continue IV fluid in the sodium level is normalized We'll follow
[2020-09-08 20:06] LABS: Glucose,Whole Blood 233 mg/dL (75-99)
[2020-09-08] MEDS: ATORVASTATIN 10 MG TAB PO SCH (21:02)
[2020-09-08] MEDS: MELATONIN 5 MG TABLET PO SCH (21:02)
--- NOTE | 2020-09-08 23:42 | PN ---
PROGRESS NOTE DATE OF SERVICE: 09/08/2020 REASON FOR FOLLOWUP: Acute COVID-19 pneumonia. INTERVAL HISTORY: Patient is currently afebrile. The patient is breathing more comfortably. The patient denies having any chest pain. Cough has decreased in intensity. No nausea, no vomiting. No abdominal pain. No diarrhea. PHYSICAL EXAMINATION: Blood pressure 117/62 with a pulse of 69, temperature 97.8. She is 92% on 2 L nasal cannula. General description is a middle-aged female lying in bed in no distress. Respiratory system: Unlabored breathing, decreased intensity of breath sounds. No wheeze. HEART: S1, S2. Regular rate and rhythm. ABDOMEN: Soft, no tenderness. LABS: BUN of 30, creatinine 1.0. IMPRESSION/PLAN: 1. Patient with acute COVID-19 pneumonia in this patient currently covered with dexamethasone, Lovenox and Remdesivir. 2. Gram-negative urinary tract infection covered with Rocephin 1 g daily while waiting for the culture to finalize. MMODL / IJN: [id number] /
[2020-09-09 07:19] LABS: Glucose,Whole Blood 74 mg/dL (75-99)
[2020-09-09] MEDS: INSULIN ASPART (NovoLOG) 100 UNIT/ML VIAL SQ SCH ×4 (07:30→20:36)
[2020-09-09] MEDS: CHOLECALCIFEROL 1,000 UNIT TAB PO SCH (07:50)
[2020-09-09] MEDS: VENLAFAXINE HCL ER 150 MG CAP PO SCH (07:50)
[2020-09-09] MEDS: FAMOTIDINE 20 MG TAB PO SCH (07:52)
[2020-09-09] MEDS: PIOGLITAZONE 15 MG TAB PO SCH (07:52)
[2020-09-09] MEDS: dexAMETHasone 2 MG TAB PO SCH (07:52)
[2020-09-09] MEDS: ZINC SULFATE 220 MG CAP PO SCH (07:53)
[2020-09-09] MEDS: ENOXAPARIN 60 MG/0.6 ML SYRINGE SQ SCH (07:53)
[2020-09-09] MEDS: SODIUM CHLORIDE 0.9% 1,000 ML IV SCH ×2 (07:54→16:45)
[2020-09-09 08:35] LABS: Glucose,Whole Blood 107 mg/dL (75-99)
[2020-09-09] MEDS: INSULIN DETEMIR (LEVEMIR) 100 UNIT/ML SYR SQ SCH (08:39)
[2020-09-09 11:58] LABS: Glucose,Whole Blood 175 mg/dL (75-99)
--- NOTE | 2020-09-09 13:03 | P.PN ---
Subjective 59-year-old female presents to the emergency department with complaints of increasing shortness of breath, fever, and fatigue. Patient states she was diagnosed with COVID on August 31 by her primary care provider and is currently on an oral steroid but is feeling worse. Patient states symptoms began 2 weeks ago with sinus pressure followed by a congested cough, nausea, vomiting, and diarrhea. Reports several members of her household are also COVID positive. Patient denies any recent rash, chest pain, abdominal pain, constipation, back pain, numbness, tingling, dizziness, hematuria, dysuria, urinary urgency, urinary frequency, headache, visual changes, or any other complaints. Her diarrhea presently improved. 09/07/2020 Patient's serum sodium did improve presently 133 creatinine improved from 1.25- 1.06 patient will be continued on IV fluids and patient is feeling bit better today but still on 2 L of oxygen saturating 91%, patient is on oral steroids and the is on Remdesivir more day2. Blood sugars are fairly controlled 09/08/2020 Patient is fairly stable is immune improvement or worsening in her clinical condition. If patient can use to be stable or improves patient probably will be discharged after she completes therapy with Remdesivir most probably will need oxygen upon discharge. Number 2019 Patient is feeling much better but her dogs and requirements went up and patient is presently on 4 L of oxygen Constitutional: Better today Cardio vascular: denied any chest pain, palpitations Gastrointestinal denied any nausea vomiting Pulmonary: Denied any shortness of breath cough Neurologic denied any new focal deficits All inpatient medications were reviewed and appropriate changes in these medications as dictated in the interval history and assessment and plan. Objective - Vital Signs Vital signs: Vital Signs Temp 98.3 F 09/09/20 10:00 Pulse 100 09/09/20 10:00 Resp 22 09/09/20 10:00 BP 119/82 09/09/20 10:00 Pulse Ox 93 L 09/09/20 10:00 Intake & Output 09/08/20 09/09/20 09/09/20 18:59 06:59 18:59 Intake Total 320 1300 1150 Balance 320 1300 1150 Intake: IV 100 Sodium Chloride 0.9% 1, 100 000 ml @ 100 mls/hr IV . Q10H [facility] Rx#:[id number] Intake, IV Titration 1200 700 Amount Sodium Chloride 0.9% 1, 1200 600 000 ml @ 100 mls/hr IV . Q10H [facility] Rx#:[id number] cefTRIAXone 1 gm In 100 Sodium Chloride 0.9% 50 ml @ 100 mls/hr IVPB Q24HR [facility] Rx#:[id number] Oral 320 450 Other: Voiding Method Bedside Commode Bedside Commode Bedside Commode # Voids 2 1 1 - Exam PHYSICAL EXAMINATION: GENERAL: The patient is alert and oriented x3, not in any acute distress. Well developed, well nourished. HEENT: Pupils are round and equally reacting to light. EOMI. No scleral icterus. No conjunctival pallor. Normocephalic, atraumatic. No pharyngeal erythema. No th yromegaly. CARDIOVASCULAR: S1 and S2 present. No murmurs, rubs, or gallops. PULMONARY: Chest is clear to auscultation, no wheezing or crackles. ABDOMEN: Soft, nontender, nondistended, normoactive bowel sounds. No palpable organomegaly. MUSCULOSKELETAL: No joint swelling or deformity. EXTREMITIES: No cyanosis, clubbing, or pedal edema. NEUROLOGICAL: Gross neurological examination did not reveal any focal deficits. SKIN: No rashes. Note: Because of COVID 19 isolation, some of the history and physical exam findings are indirect and obtained from nursing staff, and other physician examinations to avoid unnecessary contact with the patient. - Labs CBC & Chem 7: 09/05/20 23:15 09/08/20 06:17 Labs: Abnormal Lab Results - Last 24 Hours (Table) 09/08/20 09/08/20 09/09/20 Range/Units 17:03 20:05 07:17 POC Glucose (mg/dL) 276 H 233 H 74 L (75-99) mg/dL 09/09/20 09/09/20 Range/Units 08:33 11:55 POC Glucose (mg/dL) 107 H 175 H (75-99) mg/dL Microbiology - Last 24 Hours (Table) 09/06/20 00:12 Urine Culture - Final Urine,Clean Catch Klebsiella pneumoniae 09/05/20 23:15 Blood Culture - Preliminary Blood No Growth after 72 hours Assessment and Plan Plan: Covid 19 pneumonia: Patient will be continued on Decadron, and Remdesivir. Respiratory support as needed patient is presently on 4 L oxygen patient be closely monitored for any hypoxemia -Acute renal failure: Prerenal azotemia secondary to diarrhea patient was started on IV fluids hold off on her Lasix. -Hypovolemic hyponatremia: IV fluids as mentioned above -Diabetes mellitus 2: Patient blood sugars are low presently on these are expected to go up with Decadron. Patient's metformin will be held because of acute renal failure. -Hyperlipidemia -Hypertension Hyperlipidemia DVT prophylaxis with Lovenox
[2020-09-09] MEDS: REMDESIVIR (EUA) 100 MG in SODIUM CHLORIDE 0.9% 250 ML IVPB SCH (14:33)
--- NOTE | 2020-09-09 16:09 | P.PN ---
Subjective Progress Note Date: 09/09/20 Principal diagnosis: Acute CoVID 19 pneumonitis 59-year-old white female patient of Dr. Nicole Brantley the past medical history of hypertension, hyperlipidemia, diabetes mellitus type 2, GERD/reflux, history of lymphoma, depression, former smoker presented to the emergency department on 09/05/2020 with complaints of increasing shortness of breath, fever and fatigue. Patient was tested for COVID 19 on August 31 by her PCP and was found to be positive, he was started on oral steroids. Initially her symptoms started with sore throat, sinus pressure, congestive cough, nausea, vomiting and diarrhea. She states that several members of her pulse hold are also COVID positive. Denies any chest pain, denies any palpitations, no urinary symptoms, no abdominal pain. CT chest showed no acute pulmonary embolism, diffuse peripheral groundglass opacifications involving all lung lobes consistent with multifocal infection, and small hiatal hernia. She was hypoxemic, he was placed on supplemental oxygen, is on 2 L of oxygen with a pulse ox of 90-93%, afebrile. Patient was given some IV hydration in the emergency department, her IV fluids infusing at a rate of 100 ML per hour, she is on oral Pepcid, Lovenox 60 mg daily, oral Decadron, vitamin D, zinc supplement. D-dimer came back at 0.84, patient had lymphopenia and lymphocyte count of 0.5, sodium is 1:30, potassium is 4.3, 93, BUN of 37, creatinine is 1.25, LDH is 1138, CRP is 89.5, pro- calcitonin level is 0.12. On 09/07/2020 patient seen in follow-up on medical surgical floor. She is 71 (doesn't appear, she is on 2 L of oxygen pulse ox of 93%, she's been afebrile, she feels better, she is a mild case of COVID 19 pneumonia, no complaints chest pain, no palpitations, no nausea or vomiting. Urine culture is showing gram- negative bacilli. Blood culture show no growth 09/08/2020, the patient's condition is still stable on 2 L of oxygen by nasal cannula. She is feeling weak and tired and fatigued. Nevertheless, no fever, no worsening shortness of breath and the patient continues to be on 2 L of oxy gen by nasal cannula. She remains on the routine treatment for coronavirus Covid 19 related infection and the patient is on a combination of Remdesivir and Decadron and the patient is also on Lovenox 60 mg subcu every 24 hours. No other new complaints. The white cell count from yesterday was 8.8. BUN and creatinine was within normal limits. Electrolytes was within normal limits. The patient is seen today 09/09/2020 in follow-up on the regular medical floor. She is currently sitting up in a chair at bedside. Awake and alert in no acute distress. Continues with some fatigue and weakness. No worsening shortness of breath, cough or congestion. She is maintaining O2 saturation in the mid 90s on 4 L/m per nasal cannula. She does desaturate to 85% on room air. Afebrile. Urine culture positive for Klebsiella pneumoniae. He is currently on ceftriaxone. She is receiving day 4 of Remdesivir. Continued on Decadron, Lovenox and vitamin supplements. Objective - Vital Signs Vital signs: Vital Signs Temp 98.5 F 09/09/20 14:58 Pulse 69 09/09/20 14:58 Resp 18 09/09/20 15:07 BP 127/68 09/09/20 14:58 Pulse Ox 95 09/09/20 14:58 Intake & Output 09/08/20 09/09/20 09/09/20 18:59 06:59 18:59 Intake Total 320 1300 1150 Balance 320 1300 1150 Intake: IV 100 Sodium Chloride 0.9% 1, 100 000 ml @ 100 mls/hr IV . Q10H [facility] Rx#:[id number] Intake, IV Titration 1200 700 Amount Sodium Chloride 0.9% 1, 1200 600 000 ml @ 100 mls/hr IV . Q10H [facility] Rx#:[id number] cefTRIAXone 1 gm In 100 Sodium Chloride 0.9% 50 ml @ 100 mls/hr IVPB Q24HR [facility] Rx#:[id number] Oral 320 450 Other: Voiding Method Bedside Commode Bedside Commode Bedside Commode # Voids 2 1 1 - Exam GENERAL EXAM: Alert, 59-year-old white female, on 4 l/min with a pulse ox of 83- 95 %, comfortable in no apparent distress. HEAD: Normocephalic/atraumatic. EYES: Normal reaction of pupils, equal size. Conjunctiva pink, sclera white. NOSE: Clear with pink turbinates. THROAT: No erythema or exudates. NECK: No masses, no JVD, no thyroid enlargement, no adenopathy. CHEST: No chest wall deformity. Symmetrical expansion. LUNGS: Equal air entry with basilar crackles, but no wheeze, rhonchi or dullness. CVS: Regular rate and rhythm, normal S1 and S2, no gallops, no murmurs, no rubs ABDOMEN: Soft, nontender. No hepatosplenomegaly, normal bowel sounds, no guarding or rigidity. EXTREMITIES: No clubbing, no edema, no cyanosis, 2+ pulses and upper and lower extremities. MUSCULOSKELETAL: Muscle strength and tone normal. SPINE: No scoliosis or deformity SKIN: No rashes CENTRAL NERVOUS SYSTEM: Alert and oriented -3. No focal deficits, tone is normal in all 4 extremities. PSYCHIATRIC: Alert and oriented -3. Appropriate affect. Intact judgment and insight. - Labs CBC & Chem 7: 09/05/20 23:15 09/08/20 06:17 Labs: Abnormal Lab Results - Last 24 Hours (Table) 09/08/20 09/08/20 09/09/20 Range/Units 17:03 20:05 07:17 POC Glucose (mg/dL) 276 H 233 H 74 L (75-99) mg/dL 09/09/20 09/09/20 Range/Units 08:33 11:55 POC Glucose (mg/dL) 107 H 175 H (75-99) mg/dL Microbiology - Last 24 Hours (Table) 09/06/20 00:12 Urine Culture - Final Urine,Clean Catch Klebsiella pneumoniae 09/05/20 23:15 Blood Culture - Preliminary Blood No Growth after 72 hours Assessment and Plan Assessment: #1. Acute COVID 19 related pneumonitis, currently stable on 4 L of oxygen by nasal cannula #2. Dyspnea, and acute hypoxic respiratory failure due to the above, tested positive on August 31 2020, the patient is stable for now on 2 L of oxygen by nasal cannula #3. Increased inflammatory markers related to the above #4. Mild hyponatremia, recovered and normalized #5. Hypertension #6. Hyperlipidemia #7. Diabetes multiple type II #8. GERD/reflux #9. History of lymphoma #10. Former smoker #11. Depression #12. Acute urinary tract infection, with the culture positive for Klebsiella pneumoniae, currently on Rocephin Plan: The patient was seen and evaluated by Dr. Schmidt She received day 4 of Remdesivir Continued on dexamethasone and Lovenox Continued on vitamin supplements We will continue to follow I, the cosigning physician, performed a history & physical examination of the patient. Lungs sounds bilateral scattered rhonchi. Maintaining good O2 saturations in the 90s on 4 L/m per nasal cannula. I discussed the assessment and plan of care with my nurse practitioner, Taty Chaudhary. I attest to the above note as dictated by her.
[2020-09-09 16:50] LABS: Glucose,Whole Blood 269 mg/dL (75-99)
[2020-09-09] MEDS: ATORVASTATIN 10 MG TAB PO SCH (20:12)
[2020-09-09] MEDS: MELATONIN 5 MG TABLET PO SCH (20:12)
[2020-09-09 20:17] LABS: Glucose,Whole Blood 291 mg/dL (75-99)
--- NOTE | 2020-09-10 02:35 | PN ---
PROGRESS NOTE DATE OF SERVICE: 09/09/2020 REASON FOR FOLLOWUP: Acute COVID-19 pneumonia. INTERVAL HISTORY: The patient is currently afebrile. The patient is breathing more comfortably. Patient denies having any chest pain or shortness of breath with minimal cough. No nausea, no vomiting. No abdominal pain or diarrhea. PHYSICAL EXAMINATION: Blood pressure 136/71 with a pulse of 68, temperature 97.9. She is 96% on 3 L nasal cannula. General description is a middle-aged female up in the bed in no distress. RESPIRATORY SYSTEM: Unlabored breathing, decreased intensity of breath sounds. No wheeze. HEART: S1, S2. Regular rate and rhythm. ABDOMEN: Soft, no tenderness. LABS: No new labs have been obtained today. DIAGNOSTIC IMPRESSION AND PLAN: 1. Patient with acute COVID-19 pneumonia clinical responding to the dexamethasone, Lovenox, remdesivir and zinc, to continue. Slightly wean down to her oxygen. 2. Patient has Klebsiella urinary tract infection covered with Rocephin. Continue with supportive care. MMODL / IJN: [id number] /
[2020-09-10] MEDS: SODIUM CHLORIDE 0.9% 1,000 ML IV SCH ×2 (04:56→14:09)
[2020-09-10 07:08] LABS: Glucose,Whole Blood 197 mg/dL (75-99)
[2020-09-10] MEDS: FAMOTIDINE 20 MG TAB PO SCH (07:45)
[2020-09-10] MEDS: VENLAFAXINE HCL ER 150 MG CAP PO SCH (07:45)
[2020-09-10] MEDS: INSULIN DETEMIR (LEVEMIR) 100 UNIT/ML SYR SQ SCH (07:45)
[2020-09-10] MEDS: dexAMETHasone 2 MG TAB PO SCH (07:45)
[2020-09-10] MEDS: CHOLECALCIFEROL 1,000 UNIT TAB PO SCH (07:45)
[2020-09-10] MEDS: ZINC SULFATE 220 MG CAP PO SCH (07:45)
[2020-09-10] MEDS: PIOGLITAZONE 15 MG TAB PO SCH (07:46)
[2020-09-10] MEDS: ENOXAPARIN 60 MG/0.6 ML SYRINGE SQ SCH (07:46)
[2020-09-10] MEDS: INSULIN ASPART (NovoLOG) 100 UNIT/ML VIAL SQ SCH ×2 (07:47→12:01)
--- NOTE | 2020-09-10 10:05 | XR ---
EXAMINATION TYPE: XR chest 1V portable DATE OF EXAM: 09/10/2020 CLINICAL HISTORY: COVID pneumonia. TECHNIQUE: Portable frontal view of the chest. COMPARISON: 09/06/2020 CTA chest FINDINGS: Diffuse bilateral hazy airspace opacities. No pleural effusion or pneumothorax. The cardio mediastinal silhouette is within normal limits for size. Degenerative changes of the right shoulder. IMPRESSION: Diffuse hazy airspace opacities bilaterally, consistent with Covid 19 viral infection or other atypical pneumonia.
[2020-09-10 10:43] VITALS: PULSE 68; RESP 20
[2020-09-10 11:26] LABS: Glucose,Whole Blood 226 mg/dL (75-99)
--- NOTE | 2020-09-10 13:08 | P.DS ---
Providers Date of admission: 09/06/20 01:24 Attending physician: Reid Lin Consults: 09/06/20 01:34 Consult Physician Routine Consulting Provider: Keiko Schmidt Consult Reason/Comments: COVID pneumonia, h/o COPD Do you want consulting provider notified?: Yes Consult Physician Routine Consulting Provider: Gustavo Reed Consult Reason/Comments: COVID pneumonia Do you want consulting provider notified?: Yes Primary care physician: [facility] Course: 59-year-old female presents to the emergency department with complaints of increasing shortness of breath, fever, and fatigue. Patient states she was diagnosed with COVID on August 31 by her primary care provider and is currently on an oral steroid but is feeling worse. Patient states symptoms began 2 weeks ago with sinus pressure followed by a congested cough, nausea, vomiting, and diarrhea. Reports several members of her household are also COVID positive. Patient denies any recent rash, chest pain, abdominal pain, co nstipation, back pain, numbness, tingling, dizziness, hematuria, dysuria, urinary urgency, urinary frequency, headache, visual changes, or any other complaints. Her diarrhea presently improved. 09/07/2020 Patient's serum sodium did improve presently 133 creatinine improved from 1.25- 1.06 patient will be continued on IV fluids and patient is feeling bit better today but still on 2 L of oxygen saturating 91%, patient is on oral steroids and the is on Remdesivir more day2. Blood sugars are fairly controlled 09/08/2020 Patient is fairly stable is immune improvement or worsening in her clinical condition. If patient can use to be stable or improves patient probably will be discharged after she completes therapy with Remdesivir most probably will need oxygen upon discharge. 09/09/2020 Patient is feeling much better but her dogs and requirements went up and patient is presently on 4 L of oxygen 09/10/2020 Patient is still requiring 2 L of oxygen patient will be discharged on 2 L of oxygen. Patient was instructed to come back for respiratory status worsens surgery. Symptoms were getting worse. Patient completed 4 days of Remdesivir. PHYSICAL EXAMINATION: GENERAL: The patient is alert and oriented x3, not in any acute distress. Well developed, well nourished. HEENT: Pupils are round and equally reacting to light. EOMI. No scleral icterus. No conjunctival pallor. Normocephalic, atraumatic. No pharyngeal erythema. No thyromegaly. CARDIOVASCULAR: S1 and S2 present. No murmurs, rubs, or gallops. PULMONARY: Chest is clear to auscultation, no wheezing or crackles. ABDOMEN: Soft, nontender, nondistended, normoactive bowel sounds. No palpable organomegaly. MUSCULOSKELETAL: No joint swelling or deformity. EXTREMITIES: No cyanosis, clubbing, or pedal edema. NEUROLOGICAL: Gross neurological examination did not reveal any focal deficits. SKIN: No rashes. Note: Because of COVID 19 isolation, some of the history and physical exam findings are indirect and obtained from nursing staff, and other physician examinations to avoid unnecessary contact with the patient. Assessment and Plan Plan: Covid 19 pneumonia: -Acute renal failure: Prerenal azotemia, improved -Hypovolemic hyponatremia: Improved with IV fluids -Diabetes mellitus 2: Uncontrolled elevated blood sugars secondary to systemic steroids -Hyperlipidemia -Hypertension Hyperlipidemia Patient Condition at Discharge: Serious Plan - Discharge Summary Discharge Rx Participant: No New Discharge Prescriptions: New Cefuroxime Axetil [Ceftin] 500 mg PO BID 3 Days #6 tab dexAMETHasone [Hexadrol] 6 mg PO DAILY #5 tab Zinc Sulfate [Orazinc] 220 mg PO DAILY #10 cap Continue Pantoprazole Sodium [Protonix] 40 mg PO DAILY Pioglitazone HCl/Metformin HCl [Pioglitazone-Metformin ] 2 tab PO DAILY Cinnamon Bark [Cinnamon] 500 mg PO DAILY Albuterol Nebulized [Ventolin Nebulized] 2.5 mg INHALATION RT-QID PRN PRN Reason: Shortness Of Breath Venlafaxine HCl [Effexor XR] 150 mg PO DAILY Insulin Detemir [Levemir Flextouch] 50 units SQ DAILY Cholecalciferol [Vitamin D3 (25 Mcg = 1000 Iu)] 4,000 unit PO DAILY Dulaglutide [Trulicity] 0.75 mg SQ WE Atorvastatin [Lipitor] 10 mg PO HS Discontinued Losartan-Hctz 50-12.5 mg [Hyzaar 50-12.5] 1 tab PO DAILY methylPREDNISolone [Medrol Dose Pack] See Taper PO DIRECTED Cephalexin [Keflex] 500 mg PO BID Discharge Medication List Pantoprazole Sodium [Protonix] 40 mg PO DAILY 05/10/15 [History] Pioglitazone HCl/Metformin HCl [Pioglitazone-Metformin ] 2 tab PO DAILY 04/21/16 [History] Albuterol Nebulized [Ventolin Nebulized] 2.5 mg INHALATION RT-QID PRN 09/05/20 [History] Atorvastatin [Lipitor] 10 mg PO HS 09/05/20 [History] Cholecalciferol [Vitamin D3 (25 Mcg = 1000 Iu)] 4,000 unit PO DAILY 09/05/20 [History] Cinnamon Bark [Cinnamon] 500 mg PO DAILY 09/05/20 [History] Dulaglutide [Trulicity] 0.75 mg SQ WE 09/05/20 [History] Insulin Detemir [Levemir Flextouch] 50 units SQ DAILY 09/05/20 [History] Venlafaxine HCl [Effexor XR] 150 mg PO DAILY 09/05/20 [History] Cefuroxime Axetil [Ceftin] 500 mg PO BID 3 Days #6 tab 09/10/20 [Rx] Zinc Sulfate [Orazinc] 220 mg PO DAILY #10 cap 09/10/20 [Rx] dexAMETHasone [Hexadrol] 6 mg PO DAILY #5 tab 09/10/20 [Rx] Follow up Appointment(s)/Referral(s): Nicole Brantley DO [Primary Care Provider] - 3 Days Discharge Disposition: HOME SELF-CARE
[2020-09-10 13:14] LABS: C Reactive Protein 3.6 mg/dL (0.0-0.8)
[2020-09-10] MEDS: REMDESIVIR (EUA) 100 MG in SODIUM CHLORIDE 0.9% 250 ML IVPB SCH (14:03)
[2020-09-10 14:15] VITALS: BP 114/63; TEMP 98
--- NOTE | 2020-09-10 15:18 | P.PN ---
Subjective Progress Note Date: 09/10/20 Principal diagnosis: Dyspnea, weakness, fever and fatigue 59-year-old white female patient of Dr. Nicole Brantley the past medical history of hypertension, hyperlipidemia, diabetes mellitus type 2, GERD/reflux, history of lymphoma, depression, former smoker presented to the emergency department on 09/05/2020 with complaints of increasing shortness of breath, fever and fatigue. Patient was tested for COVID 19 on August 31 by her PCP and was found to be positive, he was started on oral steroids. Initially her symptoms started with sore throat, sinus pressure, congestive cough, nausea, vomiting and diarrhea. She states that several members of her pulse hold are also COVID positive. Denies any chest pain, denies any palpitations, no urinary symptoms, no abdominal pain. CT chest showed no acute pulmonary embolism, diffuse peripheral groundglass opacifications involving all lung lobes consistent with multifocal infection, and small hiatal hernia. She was hypoxemic, he was placed on supplemental oxygen, is on 2 L of oxygen with a pulse ox of 90-93%, afebrile. Main gomes was given some IV hydration in the emergency department, her IV fluids infusing at a rate of 100 ML per hour, she is on oral Pepcid, Lovenox 60 mg daily, oral Decadron, vitamin D, zinc supplement. D-dimer came back at 0.84, patient had lymphopenia and lymphocyte count of 0.5, sodium is 1:30, potassium is 4.3, 93, BUN of 37, creatinine is 1.25, LDH is 1138, CRP is 89.5, pro- calcitonin level is 0.12. On 09/07/2020 patient seen in follow-up on medical surgical floor. She is 71 (doesn't appear, she is on 2 L of oxygen pulse ox of 93%, she's been afebrile, she feels better, she is a mild case of COVID 19 pneumonia, no complaints chest pain, no palpitations, no nausea or vomiting. Urine culture is showing gram- negative bacilli. Blood culture show no growth On 09/10/2020 patient seen in follow-up on general medical surgical floor. She will receive her last dose of Remdesivir, she remains on supplemental oxygen currently at 2 L per pulse ox is 93% on 2 L, room air pulse ox was 85%. She's feeling better, no worsening dyspnea, she has been afebrile, vital signs have been stable, she is still has some exertional dyspnea and cough, but no acute distress, denies any nausea vomiting or diarrhea. Today's chest x-ray shows a diffuse hazy airspace opacities bilaterally consistent with COVID 19 viral infection. Today's labs showed improvement in the trend of inflammatory marker s. Urine culture showed Klebsiella pneumonia, and patient has been treated with IV Rocephin Objective - Vital Signs Vital signs: Vital Signs Temp 98.0 F 09/10/20 14:00 Pulse 68 09/10/20 14:00 Resp 20 09/10/20 14:00 BP 114/63 09/10/20 14:00 Pulse Ox 94 L 09/10/20 14:00 Intake & Output 09/09/20 09/10/20 09/10/20 18:59 06:59 18:59 Intake Total 1450 1400 1050 Balance 1450 1400 1050 Intake: IV 200 Sodium Chloride 0.9% 1, 200 000 ml @ 100 mls/hr IV . Q10H PRAVIN Rx#:[id number] Intake, IV Titration 700 1200 750 Amount Remdesivir (Eua) 100 mg 250 In Sodium Chloride 0.9% 250 ml @ 250 mls/hr IVPB Q24H PRAVIN Rx#:[id number] Sodium Chloride 0.9% 1, 600 1200 400 000 ml @ 100 mls/hr IV . Q10H PRAVIN Rx#:[id number] cefTRIAXone 1 gm In 100 100 Sodium Chloride 0.9% 50 ml @ 100 mls/hr IVPB Q24HR PRAVIN Rx#:[id number] Oral 750 300 Other: Voiding Method Bedside Commode Bedside Commode Bedside Commode # Voids 1 1 2 # Bowel Movements 1 - Exam GENERAL EXAM: Alert, 59-year-old white female, on 2 l/min with a pulse ox of 90- 93%, comfortable in no apparent distress. HEAD: Normocephalic/atraumatic. EYES: Normal reaction of pupils, equal size. Conjunctiva pink, sclera white. NOSE: Clear with pink turbinates. THROAT: No erythema or exudates. NECK: No masses, no JVD, no thyroid enlargement, no adenopathy. CHEST: No chest wall deformity. Symmetrical expansion. LUNGS: Equal air entry with basilar crackles, but no wheeze, rhonchi or dullness. CVS: Regular rate and rhythm, normal S1 and S2, no gallops, no murmurs, no rubs ABDOMEN: Soft, nontender. No hepatosplenomegaly, normal bowel sounds, no guarding or rigidity. EXTREMITIES: No clubbing, no edema, no cyanosis, 2+ pulses and upper and lower extremities. MUSCULOSKELETAL: Muscle strength and tone normal. SPINE: No scoliosis or deformity SKIN: No rashes CENTRAL NERVOUS SYSTEM: Alert and oriented -3. No focal deficits, tone is normal in all 4 extremities. PSYCHIATRIC: Alert and oriented -3. Appropriate affect. Intact judgment and insight. - Labs CBC & Chem 7: 09/05/20 23:15 09/08/20 06:17 Labs: Abnormal Lab Results - Last 24 Hours (Table) 09/09/20 09/09/20 09/10/20 Range/Units 16:47 20:16 07:04 D-Dimer (<0.60) mg/L FEU POC Glucose (mg/dL) 269 H 291 H 197 H (75-99) mg/dL Lactate Dehydrogenase (120-246) U/L C-Reactive Protein (0.0-0.8) mg/dL 09/10/20 09/10/20 09/10/20 Range/Units 07:22 07:22 11:24 D-Dimer 0.75 H (<0.60) mg/L FEU POC Glucose (mg/dL) 226 H (75-99) mg/dL Lactate Dehydrogenase 352 H (120-246) U/L C-Reactive Protein 3.6 H (0.0-0.8) mg/dL Microbiology - Last 24 Hours (Table) 09/05/20 23:15 Blood Culture - Preliminary Blood No Growth after 96 hours Assessment and Plan Plan: Assessment: #1. Acute COVID 19 related pneumonitis #2. Dyspnea, and acute hypoxic respiratory failure due to the above, tested positive on August 31 for blood 19 related infection #3. Increased inflammatory markers related to the above #4. Mild hyponatremia related to nausea vomiting and diarrhea related to acute COVID 19 related infection, improving #5. Hypertension #6. Hyperlipidemia #7. Diabetes multiple type II #8. GERD/reflux #9. History of lymphoma #10. Former smoker #11. Depression #12. Acute urinary tract infection, related to Klebsiella pneumonia, covered with IV Rocephin Plan: Patient will receive her last dose of Remdesivir today, she is feeling and breathing much easier, she will likely require home oxygen, as she still drops to 85% on room air, vitals have been stable, continue oral Decadron, she stable for discharge home from pulmonary perspective. I performed a history & physical examination of the patient and discussed their management with my nurse practitioner, Fatuma Alfonso. I reviewed the nurse practitioner's note and agree with the documented findings and plan of care. Lung sounds are positive for basilar crackles. The findings and the impression was discussed with the patient. I attest to the documentation by the nurse practitioner. Time with Patient: Less than 30
--- NOTE | 2020-09-10 15:36 | PN ---
PROGRESS NOTE DATE OF SERVICE: 09/10/2020 REASON FOR FOLLOWUP: COVID-19 pneumonia and Klebsiella UTI. INTERVAL HISTORY: The patient is currently afebrile. The patient is breathing comfortably. Denies having any chest pain. Minimal cough. No nausea. No vomiting. No abdominal pain or diarrhea. PHYSICAL EXAMINATION: Blood pressure 114/63 with a pulse of 58, temperature 98. She is 94% on 4 L nasal cannula. General description is a middle-aged female up in the bed in no distress. RESPIRATORY SYSTEM: Unlabored breathing. Decreased intensity of breath sounds. No wheeze. HEART: S1, S2. Regular rate and rhythm. C ABDOMEN: Soft. No tenderness. LABS: CRP 3.6. LDH is 352. DIAGNOSTIC IMPRESSION AND PLAN: 1. Patient with COVID-19 pneumonia, overall clinically improved. Completed her 5-day course of remdesivir IV. Being discharged on dexamethasone and zinc. elevated D-dimer. 2. Klebsiella urinary tract infection. -day course of . MMODL / IJN: [id number] /
== END 2020-09-10 17:46 | disposition home or self-care (01) | DRG 177 ==
LOC: EC 20:30 → 4SSUR 09-06 01:24
PROVIDERS: ADMIT Hospitalist; ATTEND Hospitalist
DX: U07.1 COVID-19 (principal); J12.89 Other viral pneumonia; J96.01 Acute respiratory failure with hypoxia; N17.9 Acute kidney failure, unspecified; E87.1 Hypo-osmolality and hyponatremia; J44.0 Chronic obstructive pulmonary disease with (acute) lower respiratory infection; N39.0 Urinary tract infection, site not specified; T38.0X5A Adverse effect of glucocorticoids and synthetic analogues, initial encounter; K21.9 Gastro-esophageal reflux disease without esophagitis; E86.0 Dehydration; E78.5 Hyperlipidemia, unspecified; E86.1 Hypovolemia; F32.9 Major depressive disorder, single episode, unspecified; I10 Essential (primary) hypertension; D72.810 Lymphocytopenia; E11.65 Type 2 diabetes mellitus with hyperglycemia; B96.1 Klebsiella pneumoniae [K. pneumoniae] as the cause of diseases classified elsewhere; Z79.899 Other long term (current) drug therapy; Z79.4 Long term (current) use of insulin; Z79.01 Long term (current) use of anticoagulants; Z98.891 History of uterine scar from previous surgery; Z90.89 Acquired absence of other organs; Z90.710 Acquired absence of both cervix and uterus; Z87.891 Personal history of nicotine dependence; Z85.72 Personal history of non-Hodgkin lymphomas
CPT/HCPCS: 36415; 71045; 71275; 80048; 80053; 81001; 82728; 83605; 83615; 83735; 84145; 85025; 85379; 85610; 85730; 86140; 87040; 87077; 87086; 87186; 93005; 96360; 96361; 99285

== ENCOUNTER 2021-09-18 09:57 | Inpatient (IN) | payer OTHER ==
[2021-09-18] MEDS ORDERED: ALBUTEROL NEBULIZED 2.5 MG/3 ML INHALATION STA (10:17)
[2021-09-18] MEDS ORDERED: IPRATROPIUM 0.5 MG/2.5 ML NEBU INHALATION STA (10:17)
[2021-09-18] MEDS ORDERED: predniSONE 20 MG TAB PO STA (10:17)
--- NOTE | 2021-09-18 10:25 | ED ---
General Adult HPI - General Chief complaint: Shortness of Breath Stated complaint: ANAY Time Seen by Provider: 09/18/21 10:00 Source: patient, EMS, RN notes reviewed, old records reviewed Mode of arrival: EMS Limitations: no limitations - History of Present Illness Initial comments: This is a 60-year-old female comes to the emergency room complaining about difficulty breathing for the last 2 weeks. Patient states there is increased cough but no sputum production. Patient states she is a smoker and smoking for about 45 years. Patient denies any fever chills. Patient states she has right- sided chest pain which is been ongoing for the last 2 weeks as well. Patient denies any swelling to the legs or calf tenderness. Patient states she didn't get the first shot of the COVID vaccine in June but has not yet got a second shot. Patient denies any abdominal pain patient denies nausea vomiting. Patient states she took a breathing treatment of her husbands and did make her feel a little better. - Related Data Home Medications Medication Instructions Recorded Confirmed Pantoprazole Sodium [Protonix] 40 mg PO DAILY 05/10/15 09/18/21 Cinnamon Bark [Cinnamon] 2,000 mg PO DAILY 09/05/20 09/18/21 Venlafaxine HCl [Effexor XR] 150 mg PO DAILY 09/05/20 09/18/21 Dulaglutide [Trulicity] 1.5 mg SQ FR 09/18/21 09/18/21 Empagliflozin [Jardiance] 25 mg PO DAILY 09/18/21 09/18/21 Insulin Glargine,Hum.rec.anlog 55 - 58 unit SQ DAILY 09/18/21 09/18/21 [Lantus Solostar Pen] Losartan-Hctz 50-12.5 mg [Hyzaar 1 tab PO DAILY 09/18/21 09/18/21 50-12.5] Mullein Eakly 1 dose PO DAILY 09/18/21 09/18/21 Allergies Allergy/AdvReac Type Severity Reaction Status Date / Time No Known Allergies Allergy Verified 09/18/21 11:58 Review of Systems ROS Statement: Those systems with pertinent positive or pertinent negative responses have been documented in the HPI. ROS Other: All systems not noted in ROS Statement are negative. Past Medical History Past Medical History: Diabetes Mellitus, GERD/Reflux, Hyperlipidemia, Hypertension Additional Past Medical History / Comment(s): Lymphoma, vertigo, hemmorhoids, History of Any Multi-Drug Resistant Organisms: None Reported Past Surgical History: Section, Hysterectomy, Tonsillectomy Additional Past Surgical History / Comment(s): right total hip, right knee reduction, lymph node removed right side, Past Anesthesia/Blood Transfusion Reactions: No Reported Reaction Past Psychological History: Depression Smoking Status: Current every day smoker Past Alcohol Use History: Occasional Past Drug Use History: None Reported General Exam - General Exam Comments Initial Comments: GENERAL: Patient is well-developed and well-nourished. Patient is nontoxic and well- hydrated and is in mild distress. ENT: Neck is soft and supple. No significant lymphadenopathy is noted. Oropharynx is clear. Moist mucous membranes. Neck has full range of motion without eliciting any pain. EYES: The sclera were anicteric and conjunctiva were pink and moist. Extraocular movements were intact and pupils were equal round and reactive to light. Eyelids were unremarkable. PULMONARY: Patient has diminished breath sounds and some expiratory wheezing CARDIOVASCULAR: There is a regular rate and rhythm without any murmurs gallops or rubs. ABDOMEN: Soft and nontender with normal bowel sounds. SKIN: Skin is clear with no lesions or rashes and otherwise unremarkable. NEUROLOGIC: Patient is alert and oriented x3. Cranial nerves II through XII are grossly intact. Motor and sensory are also intact. Normal speech, volume and content. Symmetrical smile. MUSCULOSKELETAL: Normal extremities with adequate strength and full range of motion. No lower extremity swelling or edema. No calf tenderness. LYMPHATICS: No significant lymphadenopathy is noted PSYCHIATRIC: Normal psychiatric evaluation. Limitations: no limitations Course Vital Signs 09/18/21 09/18/21 09/18/21 09:59 10:07 10:09 Temperature 98.3 F Pulse Rate 109 H Respiratory 22 22 18 Rate Blood Pressure 103/77 O2 Sat by Pulse 88 L 93 L Oximetry 09/18/21 09/18/21 11:16 11:38 Temperature Pulse Rate 98 98 Respiratory Rate Blood Pressure O2 Sat by Pulse Oximetry Medical Decision Making - Medical Decision Making EKG shows normal sinus rhythm at 90 bpm [place] interval 238 QRS is 90 QT interval 386 QTC is 495. Patient's EKG shows no ST segment elevation or depression. Chest x-ray shows COPD. Patient received breathing treatments and steroids in the emergency department she was feeling somewhat better. I spoke with Dr. Dr. Gutierrez he agreed to admit the patient and the patient I wrote admitting orders. - Lab Data Result diagrams: 09/18/21 10:26 09/18/21 10:26 Lab Results 09/18/21 09/18/21 09/18/21 Range/Units 10:26 10:26 10:26 WBC 10.3 (3.8-10.6) k/uL RBC 4.78 (3.80-5.40) m/uL Hgb 14.1 (11.4-16.0) gm/dL Hct 42.9 (34.0-46.0) % MCV 89.7 (80.0-100.0) fL MCH 29.6 (25.0-35.0) pg MCHC 32.9 (31.0-37.0) g/dL RDW 15.1 (11.5-15.5) % Plt Count 340 (150-450) k/uL MPV 6.9 Neutrophils % 79 % Lymphocytes % 13 % Monocytes % 5 % Eosinophils % 1 % Basophils % 1 % Neutrophils # 8.2 H (1.3-7.7) k/uL Lymphocytes # 1.3 (1.0-4.8) k/uL Monocytes # 0.5 (0-1.0) k/uL Eosinophils # 0.1 (0-0.7) k/uL Basophils # 0.1 (0-0.2) k/uL PT 9.9 (9.0-12.0) sec INR 0.9 (<1.2) APTT 22.5 (22.0-30.0) sec Sodium 138 (137-145) mmol/L Potassium 4.3 (3.5-5.1) mmol/L Chloride 102 (98-107) mmol/L Carbon Dioxide 25 (22-30) mmol/L Anion Gap 11 mmol/L BUN 22 H (7-17) mg/dL Creatinine 1.17 H (0.52-1.04) mg/dL Est GFR (CKD-EPI)AfAm 58 (>60 ml/min/1.73 sqM) Est GFR (CKD-EPI)NonAf 50 (>60 ml/min/1.73 sqM) Glucose 286 H (74-99) mg/dL Plasma Lactic Acid Gerard (0.7-2.0) mmol/L Calcium 9.1 (8.4-10.2) mg/dL Magnesium 2.2 (1.6-2.3) mg/dL Total Bilirubin 0.5 (0.2-1.3) mg/dL AST 20 (14-36) U/L ALT 14 (4-34) U/L Alkaline Phosphatase 123 (38-126) U/L Troponin I (0.000-0.034) ng/mL Total Protein 6.8 (6.3-8.2) g/dL Albumin 3.8 (3.5-5.0) g/dL Coronavirus (PCR) (Not Detectd) 09/18/21 09/18/21 09/18/21 Range/Units 10:26 10:26 10:26 WBC (3.8-10.6) k/uL RBC (3.80-5.40) m/uL Hgb (11.4-16.0) gm/dL Hct (34.0-46.0) % MCV (80.0-100.0) fL MCH (25.0-35.0) pg MCHC (31.0-37.0) g/dL RDW (11.5-15.5) % Plt Count (150-450) k/uL MPV Neutrophils % % Lymphocytes % % Monocytes % % Eosinophils % % Basophils % % Neutrophils # (1.3-7.7) k/uL Lymphocytes # (1.0-4.8) k/uL Monocytes # (0-1.0) k/uL Eosinophils # (0-0.7) k/uL Basophils # (0-0.2) k/uL PT (9.0-12.0) sec INR (<1.2) APTT (22.0-30.0) sec Sodium (137-145) mmol/L Potassium (3.5-5.1) mmol/L Chloride (98-107) mmol/L Carbon Dioxide (22-30) mmol/L Anion Gap mmol/L BUN (7-17) mg/dL Creatinine (0.52-1.04) mg/dL Est GFR (CKD-EPI)AfAm (>60 ml/min/1.73 sqM) Est GFR (CKD-EPI)NonAf (>60 ml/min/1.73 sqM) Glucose (74-99) mg/dL Plasma Lactic Acid Gerard 1.7 (0.7-2.0) mmol/L Calcium (8.4-10.2) mg/dL Magnesium (1.6-2.3) mg/dL Total Bilirubin (0.2-1.3) mg/dL AST (14-36) U/L ALT (4-34) U/L Alkaline Phosphatase (38-126) U/L Troponin I <0.012 (0.000-0.034) ng/mL Total Protein (6.3-8.2) g/dL Albumin (3.5-5.0) g/dL Coronavirus (PCR) Not Detected (Not Detectd) Disposition Clinical Impression: Acute exacerbation of chronic obstructive pulmonary disease Disposition: ADMITTED IP TO THIS HOSP Referrals: Nicole Brantley DO [Primary Care Provider] - 1-2 days Time of Disposition: 12:11
[2021-09-18 10:54] LABS: Basophils # (A) 0.1 k/uL (0-0.2); Basophils % (A) 1 %; Eosinophils # (A) 0.1 k/uL (0-0.7); Eosinophils % (A) 1 %; HCT 42.9 % (34.0-46.0); HGB 14.1 gm/dL (11.4-16.0); Lymphocytes # (A) 1.3 k/uL (1.0-4.8); Lymphocytes % (A) 13 %; MCH 29.6 pg (25.0-35.0); MCHC 32.9 g/dL (31.0-37.0); MCV 89.7 fL (80.0-100.0); Mean Platelet Volume 6.9; Monocytes # (A) 0.5 k/uL (0-1.0); Monocytes % (A) 5 %; Neutrophils # (A) 8.2 k/uL (1.3-7.7); Neutrophils % (A) 79 %; Platelet Count 340 k/uL (150-450); RBC 4.78 m/uL (3.80-5.40); RDW 15.1 % (11.5-15.5); WBC 10.3 k/uL (3.8-10.6)
[2021-09-18 11:10] LABS: Albumin 3.8 g/dL (3.5-5.0); Calcium 9.1 mg/dL (8.4-10.2); Magnesium 2.2 mg/dL (1.6-2.3); Potassium 4.3 mmol/L (3.5-5.1); Total Bilirubin 0.5 mg/dL (0.2-1.3); Total Protein 6.8 g/dL (6.3-8.2)
--- NOTE | 2021-09-18 11:15 | XR ---
EXAMINATION TYPE: XR chest 2V DATE OF EXAM: 09/18/2021 COMPARISON: 09/10/2020 TECHNIQUE: PA and lateral views submitted. HISTORY: Difficulty breathing FINDINGS: The lungs are clear and there is no pneumothorax, pleural effusion, or focal pneumonia. Hyperinflat ion. Heart size normal. Ectasia of the aorta. Curvature of the spine with hypertrophic and degenerati ve change. Diffuse osteopenia. IMPRESSION: 1. No acute process. Hyperinflation correlate for COPD.
[2021-09-18 11:18] LABS: INR 0.9 (<1.2); Partial Thromboplastin Time 22.5 sec (22.0-30.0); Prothrombin Time 9.9 sec (9.0-12.0)
[2021-09-18] MEDS ORDERED: ACETAMINOPHEN TAB 325 MG TAB PO PRN (15:29)
[2021-09-18] MEDS ORDERED: IBUPROFEN 600 MG TAB PO PRN (15:30)
[2021-09-18 16:52] LABS: Glucose,Whole Blood 285 mg/dL (75-99)
[2021-09-18] MEDS: methylPREDNISolone SOD SUCCI 125 MG/2 ML VIAL IV SCH ×2 (17:23→21:40)
[2021-09-18] MEDS: INSULIN ASPART (NovoLOG) 100 UNIT/ML VIAL SQ SCH ×2 (17:23→21:39)
[2021-09-18] MEDS: IPRATROPIUM-ALBUTEROL 3 ML NEB INHALATION PRN (20:05)
[2021-09-18] MEDS: BUDESONIDE 0.5 MG/2 ML NEBU INHALATION SCH (20:05)
[2021-09-18 21:01] LABS: Glucose,Whole Blood 332 mg/dL (75-99)
[2021-09-19] MEDS: methylPREDNISolone SOD SUCCI 125 MG/2 ML VIAL IV SCH (05:37)
[2021-09-19 07:36] LABS: Glucose,Whole Blood 371 mg/dL (75-99)
[2021-09-19] MEDS: BUDESONIDE 0.5 MG/2 ML NEBU INHALATION SCH ×2 (07:36→18:57)
[2021-09-19] MEDS: INSULIN DETEMIR (LEVEMIR) 100 UNIT/ML SYR SQ SCH (08:14)
[2021-09-19] MEDS: INSULIN ASPART (NovoLOG) 100 UNIT/ML VIAL SQ SCH ×4 (08:14→21:34)
[2021-09-19] MEDS: VENLAFAXINE HCL ER 150 MG CAP PO SCH (08:48)
[2021-09-19] MEDS: LOSARTAN-HCTZ 50-12.5 MG 1 EACH TAB PO SCH (08:49)
[2021-09-19] MEDS: PANTOPRAZOLE 40 MG TABLET PO SCH (08:49)
[2021-09-19] MEDS: LEVOFLOXACIN 500 MG TAB PO SCH (11:14)
[2021-09-19 12:18] LABS: Glucose,Whole Blood 386 mg/dL (75-99)
[2021-09-19 12:55] LABS: Appearance,Urine Clear (Clear); Bilirubin,Urine Negative (Negative); Blood,Urine Negative (Negative); Color,Urine Yellow; Glucose,Urine (UA) 4+ (Negative); Ketones,Urine 1+ (Negative); Leukocyte Esterase,Urine Negative (Negative); Nitrite,Urine Negative (Negative); Protein,Urine Negative (Negative); Specific Gravity,Urine 1.037 (1.001-1.035); Urobilinogen,Urine <2.0 mg/dL (<2.0)
[2021-09-19] MEDS ORDERED: HEPARIN SODIUM 1,000 UN/ML (10ML VL) IV PRN (13:08)
[2021-09-19] MEDS ORDERED: HEPARIN SODIUM 1,000 UN/ML (10ML VL) IV ONE (13:08)
--- NOTE | 2021-09-19 13:09 | CT ---
EXAMINATION TYPE: CT chest angio for PE DATE OF EXAM: 09/19/2021 COMPARISON: 09/06/2020 HISTORY: Post covid [address] DLP: 967.90 mGycm Automated exposure control for dose reduction was used. CONTRAST: CT Chest for pulmonary embolism performed with with IV Contrast, patient injected with 65ml mL of Iso ag 370. FINDINGS: LUNGS: Scattered areas of groundglass opacification greater within the right upper lobe most typical of multifocal pneumonitis. No pleural effusion or pneumothorax. 6 mm left upper lobe pulmonary nodule . MEDIASTINUM: There is a large central pulmonary embolism on the right with possible saddle embolus co mponent. There is extensive involvement of the secondary and distal branches of the right pulmonary a rtery with very little enhancement. There is extensive filling defects within the distal left pulmona ry artery and secondary and distal branches of the left pulmonary artery compatible with diffuse bila teral severe pulmonary embolism. Report called to patient's nurse 1:00 PM 09/19/2021. The right ventri cular to left ventricular ratio was 1 correlate for RV strain. Dense coronary artery calcification. Aorta of normal caliber. Trace of pericardial fluid. OTHER: Hypertrophic and degenerative changes of the spine. IMPRESSION: 1. Severe bilateral pulmonary embolism. Component of saddle embolism not excluded. There is involveme nt of bilateral main pulmonary arteries and their secondary and distal branches with widespread pulmo nary embolism. Right ventricular to left ventricular ratio measures approximately approximately 1.0 c orrelate for RV strain. 2. Scattered areas of groundglass opacification suggestive of pneumonitis. 3. Coronary artery calcification. 4. 6 mm left upper lobe pulmonary nodule.
--- NOTE | 2021-09-19 14:12 | P.CNPUL ---
History of Present Illness Consult date: 09/19/21 Requesting physician: Feliciano Gutierrez Reason for consult: dyspnea, hypoxemia Chief complaint: shortness of breath History of present illness: This is a very pleasant 60-year-old female patient who has a history of diabetes mellitus, hyperlipidemia, hypertension, obesity, gastroesophageal reflux d isease, former smoker, depression. She presented here to the emergency room yesterday with complaints of recurrent shortness of breath, dyspnea on exertion. Chest x-ray revealed no acute pulmonary process. white count 10.3. Hemoglobin 14.1. Sodium 138. Potassium 4.3. Creatinine 1.17. Glucose 286. Pro- calcitonin 0.04. Zhu virus by PCR not detected. She is seen today in consultation on the regular medical floor. She is currently sitting up in bed. Awake and alert in no acute distress. She is maintaining O2 saturation in the 90s on 4 L/m per nasal cannula. She still is quite dyspneic with minimal exertion. Dyspneic with conversation. Related order a CT angiogram that is positive for severe bilateral pulmonary embolism. Component of saddle embolism not excluded. There is involvement in the bilateral main pulmonary arteries and there are secondary and distal branches with widespread pulmonary embolism. Right ventricular to left ventricular ratio measures approximately 1.0 there is scattered areas of groundglass opacification suggestive of pneumonitis. Cor relate for RV strain. There is scattered areas of groundglass opacification suggestive of pneumonitis. Coronary artery calcification. 6 mm left upper lobe pulmonary nodule. She's been initiated on a heparin drip. Doppler of the lower extremity is pending. Echocardiogram pending. Review of Systems REVIEW OF SYSTEMS: CONSTITUTIONAL: Denies any recent significant weight loss or weight gain. EYES: Denies change in vision. EARS, NOSE, MOUTH, THROAT: Denies headaches, denies sore throat. CARDIOVASCULAR: Denies chest pain, palpitations or syncopal episodes. RESPIRATORY: positive for shortness of breath, cough, congestion no hemoptysis. GASTROINTESTINAL: Denies change in appetite, denies abdominal pain GENITOURINARY: Denies hematuria, denies infections. MUSKULOSKELETAL: Denies pain, denies swelling. INTEGUMENTARY: Denies rash, denies eczema. NEUROLOGICAL: Denies recent memory loss, no recent seizure activity. PSYCHIATRIC: Denies anxiety, denies depression. HEMATOLOGIC/LYMPHATIC: Denies anemia, denies enlarged lymph nodes. Past Medical History Past Medical History: Cancer, COPD, Diabetes Mellitus, GERD/Reflux, Hypertension, Osteoarthritis (OA), Pneumonia Additional Past Medical History / Comment(s): IDDM type II, neuropathy bilateral legs and feet, R 5th finger numbness, hiatal hernia, lymphoma with chemo/radiation R hip to R knee, vertigo, L hip pain/pt states unable to walk far, R shoulder dislocation, chronic low back pain, migraines, benign colon polyps, hemorrhoids History of Any Multi-Drug Resistant Organisms: None Reported Past Surgical History: Section, Hysterectomy, Joint Replacement, Orthopedic Surgery, Tonsillectomy Additional Past Surgical History / Comment(s): R axillary lymph node removals, R total hip arthroplasty, R patellar fracture with surgery, colonoscopy with benign polypectomy, R hip injections, lumbar injections. Past Anesthesia/Blood Transfusion Reactions: Motion Sickness, Postoperative Nausea & Vomiting (PONV) Additional Past Anesthesia/Blood Transfusion Reaction / Comment(s): Pt has clausterphobia. Smoking Status: Current every day smoker - Past Family History Father Family Medical History: Cancer Additional Family Medical History / Comment(s): Pt cannot recall primary site but states father ended up with cancer all over. Mother Family Medical History: Liver Disease Additional Family Medical History / Comment(s): Mother of "yellow jaundice" Medications and Allergies Home Medications Medication Instructions Recorded Confirmed Type Pantoprazole Sodium [Protonix] 40 mg PO DAILY 05/10/15 09/18/21 History Cinnamon Bark [Cinnamon] 2,000 mg PO DAILY 09/05/20 09/18/21 History Venlafaxine HCl [Effexor XR] 150 mg PO DAILY 09/05/20 09/18/21 History Dulaglutide [Trulicity] 1.5 mg SQ FR 09/18/21 09/18/21 History Empagliflozin [Jardiance] 25 mg PO DAILY 09/18/21 09/18/21 History Insulin Glargine,Hum.rec.anlog 55 - 58 unit SQ DAILY 09/18/21 09/18/21 History [Lantus Solostar Pen] Losartan-Hctz 50-12.5 mg [Hyzaar 1 tab PO DAILY 09/18/21 09/18/21 History 50-12.5] [place] 1 dose PO DAILY 09/18/21 09/18/21 History Allergies Allergy/AdvReac Type Severity Reaction Status Date / Time No Known Allergies Allergy Verified 09/18/21 11:58 Physical Exam Vitals: Vital Signs Temp Pulse Pulse Resp BP BP BP 09/19/21 08:00 20 09/19/21 07:46 99 09/19/21 07:36 100 09/19/21 07:15 97.7 F 90 20 114/71 09/19/21 02:38 103 H 24 09/19/21 01:48 98.0 F 103 H 24 132/77 09/18/21 21:40 103 H 24 09/18/21 20:20 100 09/18/21 20:19 98.3 F 99 20 122/74 09/18/21 20:05 98 09/18/21 15:32 98.1 F 104 H 20 134/75 09/18/21 14:53 98.3 F 105 H 18 114/58 Pulse Ox 09/19/21 08:00 09/19/21 07:46 09/19/21 07:36 09/19/21 07:15 90 L 09/19/21 02:38 09/19/21 01:48 93 L 09/18/21 21:40 09/18/21 20:20 93 L 09/18/21 20:19 94 L 09/18/21 20:05 09/18/21 15:32 95 09/18/21 14:53 93 L Intake and Output 09/18/21 09/19/21 09/19/21 22:59 06:59 14:59 Intake Total 240 200 Output Total 300 Balance -60 200 Intake: Oral 240 200 Output: Urine 300 Other: Voiding Method Bedside Commode Bedside Commode Bedside Commode # Voids 1 2 # Bowel Movements 1 GENERAL EXAM: Alert, oobese, pleasant 60-year-old female patient, on 4 L nasal cannula, fairly comfortable in no apparent distress. HEAD: Normocephalic. EYES: Normal reaction of pupils, equal size. NOSE: Clear with pink turbinates. THROAT: No erythema or exudates. NECK: No masses, no JVD. CHEST: No chest wall deformity. LUNGS: Equal air entry with no crackles, wheeze, rhonchi or dullness. CVS: S1 and S2 normal with no audible murmur, regular rhythm. ABDOMEN: No hepatosplenomegaly, normal bowel sounds, no guarding or rigidity. SPINE: No scoliosis or deformity SKIN: No rashes CENTRAL NERVOUS SYSTEM: No focal deficits, tone is normal in all 4 extremities. EXTREMITIES: There is no peripheral edema. No clubbing, no cyanosis. P eripheral pulses are intact. Results - Laboratory Findings CBC and BMP: 09/18/21 10:26 09/18/21 10:26 PT/INR, D-dimer PT 9.9 sec (9.0-12.0) 09/18/21 10:26 INR 0.9 (<1.2) 09/18/21 10:26 Abnormal lab findings: Abnormal Labs 09/18/21 09/18/21 09/18/21 10:26 10:26 16:45 Neutrophils # 8.2 H BUN 22 H Creatinine 1.17 H Glucose 286 H POC Glucose (mg/dL) 285 H Ur Specific [place] Urine Glucose (UA) Urine Ketones 09/18/21 09/19/21 09/19/21 20:49 07:34 12:17 Neutrophils # BUN Creatinine Glucose POC Glucose (mg/dL) 332 H 371 H 386 H Ur Specific [place] Urine Glucose (UA) Urine Ketones 09/19/21 12:20 Neutrophils # BUN Creatinine Glucose POC Glucose (mg/dL) Ur Specific [place] 1.037 H Urine Glucose (UA) 4+ H Urine Ketones 1+ H - Diagnostic Findings Chest x-ray: image reviewed CT scan - chest: image reviewed Assessment and Plan Assessment: 1 Acute hypoxemic respiratory failure secondary to acute bilateral severe pulm onary emboli. Component of saddle embolism is not excluded. There is involvement of bilateral main pulmonary arteries and their secondary and distal branches with widespread pulmonary embolism. Right ventricular to left ventricular ratio measures approximately 1.0. The blair for RV strain. Echoc ardiogram pending. Venous Doppler of the lower extremities pending. She's been initiated on a heparin drip. 2 Morbid obesity 3 Diabetes mellitus 4 Former smoker 5 Hypertension 6 Gastroesophageal reflux disease 7 History of depression 8 History of COVID-19 pneumonia in August 2020 Plan: The patient was seen and evaluated by Dr. Schmidt CT angiogram reviewed, heparin drip initiated Obtain urgent echocardiogram, Doppler of the lower extremities May be a candidate for EKOS procedure Titrate the FiO2 as tolerated We will continue to follow and make further recommendations based on her clinical status Time with Patient: Greater than 30
[2021-09-19 14:13] LABS: Basophils % (A) 0 %; Eosinophils # (A) 0.1 k/uL (0-0.7); Eosinophils % (A) 0 %; HCT 42.9 % (34.0-46.0); HGB 14.2 gm/dL (11.4-16.0); Lymphocytes # (A) 0.8 k/uL (1.0-4.8); Lymphocytes % (A) 4 %; MCH 29.6 pg (25.0-35.0); MCV 89.7 fL (80.0-100.0); Mean Platelet Volume 7.4; Monocytes # (A) 0.9 k/uL (0-1.0); Monocytes % (A) 4 %; Neutrophils # (A) 18.8 k/uL (1.3-7.7); Neutrophils % (A) 91 %; Platelet Count 352 k/uL (150-450); RBC 4.79 m/uL (3.80-5.40); RDW 14.6 % (11.5-15.5); WBC 20.6 k/uL (3.8-10.6)
--- NOTE | 2021-09-19 14:14 | US ---
EXAMINATION TYPE: US venous doppler duplex LE DATE OF EXAM: 09/19/2021 1:56 PM COMPARISON: NONE CLINICAL HISTORY: Bilateral PE. SIDE PERFORMED: Bilateral TECHNIQUE: The lower extremity deep venous system is examined utilizing real time linear array sonog kecia with graded compression, doppler sonography and color-flow sonography. VESSELS IMAGED: Common Femoral Vein Deep Femoral Vein Greater Saphenous Vein * Femoral Vein Popliteal Vein Small Saphenous Vein * Proximal Calf Veins (* superficial vessels) Thrombus seen in the left popliteal vein Right Leg: Negative for DVT Left Leg: Positive for DVT IMPRESSION: 1. Exam is positive for DVT left popliteal vein left lower extremity.
--- NOTE | 2021-09-19 14:30 | CT ---
EXAMINATION TYPE: CT brain wo con DATE OF EXAM: 09/19/2021 COMPARISON: Pain HISTORY: Starting heparin drip, reports fall and hitting head. CT DLP: 1097.60 mGycm Automated exposure control for dose reduction was used. FINDINGS: Calvarium intact. Orbits are symmetric. Intracranial atherosclerotic changes. Ventricular system is midline with mild generalized degenerative change of the greater frontal lobe c omponent. No acute hemorrhage or mass effect. No midline shift. Cerebellar tonsils are low-lying in position. Sella turcica normal in appearance. IMPRESSION: 1. No acute hemorrhage or mass effect.
[2021-09-19] MEDS: HEPARIN SOD,PORK IN 0.45% NACL 25,000 UNIT in 0.45% NACL 1 250ML.BAG IV SCH ×2 (14:36→22:28)
[2021-09-19 14:45] LABS: INR 0.9 (<1.2); Partial Thromboplastin Time 22.5 sec (22.0-30.0); Prothrombin Time 9.8 sec (9.0-12.0)
[2021-09-19] MEDS: methylPREDNISolone SOD SUCCI 40 MG/ML 1 ML VIAL IV SCH ×2 (16:19→22:53)
[2021-09-19 17:29] LABS: Glucose,Whole Blood 343 mg/dL (75-99)
[2021-09-19] MEDS: IPRATROPIUM-ALBUTEROL 3 ML NEB INHALATION PRN (18:57)
[2021-09-19 21:30] LABS: Glucose,Whole Blood 341 mg/dL (75-99)
--- NOTE | 2021-09-20 01:36 | P.HPIM ---
History of Present Illness H&P Date: 09/19/21 Chief Complaint: shortness of breath Nicole Montiel is a 60 yo F with PMH of COPD, T2DM, morbid obesity who presented to the ED with 2-3 week history of worsening shortness of breath. She complains of becoming extremely winded with minimal activity, poor exercise tolerance. She states this has been an issue for a few months ever since she had COVID but worse in the past few weeks. She denies fever, chills, sore throat, headache, myalgias. She is a current smoker. No sick contact. On presentation pt hypoxic and tachycardic, WBC 10.3, procalcitonin 0.04, Cr 1.1, CXR no acute process. CTA ordered and significant for bilateral pulmonary embolism. Review of Systems All systems: negative Constitutional: Reports malaise, Reports weakness, Denies chills, Denies fever Eyes: denies blurred vision, denies pain Ears, nose, mouth and throat: Denies headache, Denies sore throat Cardiovascular: Denies chest pain, Denies shortness of breath Respiratory: Reports cough Gastrointestinal: Denies abdominal pain, Denies diarrhea, Denies nausea, Denies vomiting Genitourinary: Denies dysuria, Denies hematuria Musculoskeletal: Denies myalgias Integumentary: Denies pruritus, Denies rash Neurological: Denies numbness, Denies weakness Psychiatric: Denies anxiety, Denies depression Endocrine: Denies fatigue, Denies weight change Past Medical History Past Medical History: Cancer, COPD, Diabetes Mellitus, GERD/Reflux, Hypertension, Osteoarthritis (OA), Pneumonia Additional Past Medical History / Comment(s): IDDM type II, neuropathy bilateral legs and feet, R 5th finger numbness, hiatal hernia, lymphoma with chemo/radiation R hip to R knee, vertigo, L hip pain/pt states unable to walk far, R shoulder dislocation, chronic low back pain, migraines, benign colon polyps, hemorrhoids History of Any Multi-Drug Resistant Organisms: None Reported Past Surgical History: Section, Hysterectomy, Joint Replacement, Orthopedic Surgery, Tonsillectomy Additional Past Surgical History / Comment(s): R axillary lymph node removals, R total hip arthroplasty, R patellar fracture with surgery, colonoscopy with benign polypectomy, R hip injections, lumbar injections. Past Anesthesia/Blood Transfusion Reactions: Motion Sickness, Postoperative Nausea & Vomiting (PONV) Additional Past Anesthesia/Blood Transfusion Reaction / Comment(s): Pt has clausterphobia. Smoking Status: Current every day smoker - Past Family History Father Family Medical History: Cancer Additional Family Medical History / Comment(s): Pt cannot recall primary site but states father ended up with cancer all over. Mother Family Medical History: Liver Disease Additional Family Medical History / Comment(s): Mother of "yellow jaundice" Medications and Allergies Home Medications Medication Instructions Recorded Confirmed Type Pantoprazole Sodium [Protonix] 40 mg PO DAILY 05/10/15 09/18/21 History Cinnamon Bark [Cinnamon] 2,000 mg PO DAILY 09/05/20 09/18/21 History Venlafaxine HCl [Effexor XR] 150 mg PO DAILY 09/05/20 09/18/21 History Dulaglutide [Trulicity] 1.5 mg SQ FR 09/18/21 09/18/21 History Empagliflozin [Jardiance] 25 mg PO DAILY 09/18/21 09/18/21 History Insulin Glargine,Hum.rec.anlog 55 - 58 unit SQ DAILY 09/18/21 09/18/21 History [Lantus Solostar Pen] Losartan-Hctz 50-12.5 mg [Hyzaar 1 tab PO DAILY 09/18/21 09/18/21 History 50-12.5] [place] 1 dose PO DAILY 09/18/21 09/18/21 History Allergies Allergy/AdvReac Type Severity Reaction Status Date / Time No Known Allergies Allergy Verified 09/18/21 11:58 Physical Exam Vitals: Vital Signs Temp Pulse Pulse Pulse Resp BP BP 09/20/21 00:10 98.6 F 95 20 123/63 09/19/21 19:29 98.4 F 100 20 116/72 09/19/21 19:17 88 09/19/21 18:57 84 09/19/21 16:00 104 H 26 H 09/19/21 14:33 97.9 F 104 H 26 H 109/70 09/19/21 08:00 20 09/19/21 07:46 99 09/19/21 07:36 100 09/19/21 07:15 97.7 F 90 20 114/71 09/19/21 02:38 103 H 24 09/19/21 01:48 98.0 F 103 H 24 132/77 Pulse Ox 09/20/21 00:10 92 L 09/19/21 19:29 96 09/19/21 19:17 09/19/21 18:57 09/19/21 16:00 09/19/21 14:33 91 L 09/19/21 08:00 09/19/21 07:46 09/19/21 07:36 09/19/21 07:15 90 L 09/19/21 02:38 09/19/21 01:48 93 L Intake and Output 09/19/21 09/19/21 09/20/21 14:59 22:59 06:59 Intake Total 673 187.833 0 Output Total 425 Balance 248 187.833 0 Intake: Intake, IV Titration 187.833 0 Amount Heparin Sod,Pork in 0.45% 187.833 0 NaCl 25,000 unit In 0.45 % NaCl 1 250ml.bag @ 16. 357 UNITS/KG/HR 23 mls/hr IV .[id number] [facility] Rx#: [id number] Oral 673 Output: Urine 425 Other: Voiding Method Bedside Commode Bedside Commode # Voids 1 General: well nourished, well developed, obese, NAD. Vitals reviewed Eyes: PERRL, EOMI, conjunctiva normal HENT: normocephalic, mucus membranes moist Neck: supple, no JVD Lungs: normal respiratory effort, no wheezes or rales CV: Regular rate and rhythm, no murmur. Peripheral pulses 2+ Abdomen: soft, nondistended, no organomegaly Lymph: no cervical or axillary LAD Skin: warm and dry. Neuro: A&Ox3, normal mood and affect Results CBC & Chem 7: 09/19/21 13:14 09/18/21 10:26 Labs: Abnormal Lab Results - Last 24 Hours (Table) 09/19/21 09/19/21 09/19/21 Range/Units 07:34 12:17 12:20 WBC (3.8-10.6) k/uL Neutrophils # (1.3-7.7) k/uL Lymphocytes # (1.0-4.8) k/uL APTT (22.0-30.0) sec D-Dimer (<0.60) mg/L FEU POC Glucose (mg/dL) 371 H 386 H (75-99) mg/dL Ur Specific [place] 1.037 H (1.001-1.035) Urine Glucose (UA) 4+ H (Negative) Urine Ketones 1+ H (Negative) 09/19/21 09/19/21 09/19/21 Range/Units 13:08 13:14 17:28 WBC 20.6 H (3.8-10.6) k/uL Neutrophils # 18.8 H (1.3-7.7) k/uL Lymphocytes # 0.8 L (1.0-4.8) k/uL APTT (22.0-30.0) sec D-Dimer 4.02 H (<0.60) mg/L FEU POC Glucose (mg/dL) 343 H (75-99) mg/dL Ur Specific [place] (1.001-1.035) Urine Glucose (UA) (Negative) Urine Ketones (Negative) 09/19/21 09/19/21 Range/Units 21:24 21:29 WBC (3.8-10.6) k/uL Neutrophils # (1.3-7.7) k/uL Lymphocytes # (1.0-4.8) k/uL APTT 119.8 H* (22.0-30.0) sec D-Dimer (<0.60) mg/L FEU POC Glucose (mg/dL) 341 H (75-99) mg/dL Ur Specific [place] (1.001-1.035) Urine Glucose (UA) (Negative) Urine Ketones (Negative) Microbiology - Last 24 Hours (Table) 09/18/21 10:26 Blood Culture - Preliminary Blood No Growth after 24 hours 09/18/21 10:26 Blood Culture - Preliminary Blood No Growth after 24 hours Thrombosis Risk Factor Assmnt - Choose All That Apply Any of the Below Risk Factors Present?: Yes Each Factor Represents 1 point: Abnormal pulmonary function (COPD), Obesity (BMI >25) Other Risk Factors: Yes Each Risk Factor Represents 2 Points: Age 61-74 years, Malignancy Other congenital or acquired thrombophilia - If yes, enter type in comment: No Thrombosis Risk Factor Assessment Total Risk Factor Score: 6 Thrombosis Risk Factor Assessment Level: High Risk Assessment and Plan Plan: 1. Acute hypoxic respiratory failure, secondary to bilateral PE. Start heparin drip. Echo ordered. Pulmonary consult. Supplemental O2 as tolerated 2. COPD. Continue with solumedrol, pulmicort, duonebs 3. T2DM. Continue home lantus, accucheck, sliding scale insulin 4. HTN. continue losartan
[2021-09-20 07:22] LABS: Glucose,Whole Blood 407 mg/dL (75-99)
[2021-09-20] MEDS: IPRATROPIUM-ALBUTEROL 3 ML NEB INHALATION PRN ×3 (08:05→20:13)
[2021-09-20] MEDS ORDERED: INSULIN DETEMIR (LEVEMIR) 100 UNIT/ML SYR SQ ONE (08:06)
[2021-09-20] MEDS: BUDESONIDE 0.5 MG/2 ML NEBU INHALATION SCH ×2 (08:06→20:12)
[2021-09-20] MEDS ORDERED: INSULIN ASPART (NovoLOG) 100 UNIT/ML VIAL SQ ONE (08:08)
[2021-09-20] MEDS: INSULIN ASPART (NovoLOG) 100 UNIT/ML VIAL SQ SCH ×6 (08:31→21:01)
[2021-09-20] MEDS: LOSARTAN-HCTZ 50-12.5 MG 1 EACH TAB PO SCH (08:33)
[2021-09-20] MEDS: VENLAFAXINE HCL ER 150 MG CAP PO SCH (08:33)
[2021-09-20] MEDS: LEVOFLOXACIN 500 MG TAB PO SCH (08:33)
[2021-09-20] MEDS: PANTOPRAZOLE 40 MG TABLET PO SCH (08:33)
[2021-09-20] MEDS: methylPREDNISolone SOD SUCCI 40 MG/ML 1 ML VIAL IV SCH (09:06)
[2021-09-20] MEDS: INSULIN DETEMIR (LEVEMIR) 100 UNIT/ML SYR SQ SCH ×2 (09:06→21:45)
[2021-09-20] MEDS: FLUCONAZOLE 150 MG TAB PO SCH (09:12)
[2021-09-20 09:36] LABS: Basophils # (A) 0.01 X 10*3/uL (0.00-0.10); Basophils % (A) 0.1 %; Eosinophils # (A) 0 X 10*3/uL (0.04-0.35); Eosinophils % (A) 0 %; HGB 12.7 g/dL (12.0-15.0); Lymphocytes # (A) 0.97 X 10*3/uL (0.90-5.00); Lymphocytes % (A) 5.5 %; MCV 93.6 fL (80.0-97.0); Mean Platelet Volume 9.4 fL (9.5-12.2); Monocytes % (A) 3.4 %; Neutrophils # (A) 16.07 X 10*3/uL (1.80-7.70); Neutrophils % (A) 90.3 %; Platelet Count 340 X 10*3/uL (140-440); RBC 4.38 X 10*6/uL (4.10-5.20); RDW 15.1 % (11.5-14.5); WBC 17.78 X 10*3/uL (4.50-10.00)
--- NOTE | 2021-09-20 10:57 | P.PN ---
Subjective Progress Note Date: 09/20/21 Nicole Montiel is a 60 yo F with PMH of COPD, T2DM, morbid obesity who presented to the ED with 2-3 week history of worsening shortness of breath. She complains of becoming extremely winded with minimal activity, poor exercise tolerance. She states this has been an issue for a few months ever since she had COVID but worse in the past few weeks. She denies fever, chills, sore throat, headache, myalgias. She is a current smoker. No sick contact. On presentation pt hypoxic and tachycardic, WBC 10.3, procalcitonin 0.04, Cr 1.1, CXR no acute process. CTA ordered and significant for bilateral pulmonary embolism. 09/20/2021 chest CTA completed yesterday reported severe bilateral pulmonary embolism. Correlating for RV strain, Echo , EKG pending. Venous Doppler of bilateral lower extremities reported positive left popliteal vein thrombus .patient reported recent fall where her head had hit the cement and did not have workup . Brain CT completed reporting no acute hemorrhage or mass effect .Anticoagulated on heparin drip. Maintaining O2 sats in the 90s on 5 L nasal cannula O2. Occasional nonproductive cough Feels better with less shortness of breath. Denies chest pain, palpitations. Blood sugars elevated. Afebrile, WBC trending down 17.78. Objective - Vital Signs Vital signs: Vital Signs Temp 98.4 F 09/20/21 07:00 Pulse 88 09/20/21 08:20 Resp 18 09/20/21 07:00 BP 128/76 09/20/21 07:00 Pulse Ox 94 L 09/20/21 07:00 Intake & Output 09/19/21 09/20/21 09/20/21 18:59 06:59 18:59 Intake Total 673 187.833 400.333 Output Total 425 Balance 248 187.833 400.333 Intake: Intake, IV Titration 187.833 160.333 Amount Heparin Sod,Pork in 0.45% 187.833 160.333 NaCl 25,000 unit In 0.45 % NaCl 1 250ml.bag @ 16. 357 UNITS/KG/HR 23 mls/hr IV .[id number] [facility] Rx#: [id number] Oral 673 240 Output: Urine 425 Other: Voiding Method Bedside Commode Bedside Commode # Voids 1 1 - Exam General: obese, NAD. Sitting up at side of bed .Vitals reviewed Eyes: PERRL, EOMI, conjunctiva normal. HENT: normocephalic, mucus membranes moist Neck: supple, no JVD Lungs: normal respiratory effort, no wheezes or rales CV: Regular rate and rhythm, no murmur. Peripheral pulses 2+ Abdomen: soft, nondistended, no organomegaly, no guarding, no rigidity, positive bowel sounds Skin: warm and dry. Neuro: A&Ox3, normal mood and affect - Labs CBC & Chem 7: 09/20/21 06:14 09/18/21 10:26 Labs: Abnormal Lab Results - Last 24 Hours (Table) 09/19/21 09/19/21 09/19/21 Range/Units 12:17 12:20 13:08 WBC (3.8-10.6) k/uL MCHC (32.0-37.0) g/dL RDW (11.5-14.5) % MPV (9.5-12.2) fL Immature Gran # (0.00-0.04) X 10*3/uL Neutrophils # (1.3-7.7) k/uL Lymphocytes # (1.0-4.8) k/uL Eosinophils # (0.04-0.35) X 10*3/uL APTT (22.0-30.0) sec D-Dimer 4.02 H (<0.60) mg/L FEU POC Glucose (mg/dL) 386 H (75-99) mg/dL Ur Specific [place] 1.037 H (1.001-1.035) Urine Glucose (UA) 4+ H (Negative) Urine Ketones 1+ H (Negative) 09/19/21 09/19/21 09/19/21 Range/Units 13:14 17:28 21:24 WBC 20.6 H (3.8-10.6) k/uL MCHC (32.0-37.0) g/dL RDW (11.5-14.5) % MPV (9.5-12.2) fL Immature Gran # (0.00-0.04) X 10*3/uL Neutrophils # 18.8 H (1.3-7.7) k/uL Lymphocytes # 0.8 L (1.0-4.8) k/uL Eosinophils # (0.04-0.35) X 10*3/uL APTT 119.8 H* (22.0-30.0) sec D-Dimer (<0.60) mg/L FEU POC Glucose (mg/dL) 343 H (75-99) mg/dL Ur Specific [place] (1.001-1.035) Urine Glucose (UA) (Negative) Urine Ketones (Negative) 09/19/21 09/20/21 09/20/21 Range/Units 21:29 06:14 06:14 WBC 17.78 H (3.8-10.6) k/uL MCHC 31.0 L (32.0-37.0) g/dL RDW 15.1 H (11.5-14.5) % MPV 9.4 L (9.5-12.2) fL Immature Gran # 0.13 H (0.00-0.04) X 10*3/uL Neutrophils # 16.07 H (1.3-7.7) k/uL Lymphocytes # (1.0-4.8) k/uL Eosinophils # 0 L (0.04-0.35) X 10*3/uL APTT 66.6 H (22.0-30.0) sec D-Dimer (<0.60) mg/L FEU POC Glucose (mg/dL) 341 H (75-99) mg/dL Ur Specific [place] (1.001-1.035) Urine Glucose (UA) (Negative) Urine Ketones (Negative) 09/20/21 Range/Units 07:21 WBC (3.8-10.6) k/uL MCHC (32.0-37.0) g/dL RDW (11.5-14.5) % MPV (9.5-12.2) fL Immature Gran # (0.00-0.04) X 10*3/uL Neutrophils # (1.3-7.7) k/uL Lymphocytes # (1.0-4.8) k/uL Eosinophils # (0.04-0.35) X 10*3/uL APTT (22.0-30.0) sec D-Dimer (<0.60) mg/L FEU POC Glucose (mg/dL) 407 H (75-99) mg/dL Ur Specific [place] (1.001-1.035) Urine Glucose (UA) (Negative) Urine Ketones (Negative) Microbiology - Last 24 Hours (Table) 09/18/21 10:26 Blood Culture - Preliminary Blood No Growth after 24 hours 09/18/21 10:26 Blood Culture - Preliminary Blood No Growth after 24 hours Assessment and Plan Assessment: Acute hypoxic respiratory failure secondary to bilateral PE, in a patient with prior history of covid and sedentary lifestyle. Left popliteal vein thrombus COPD Diabetes mellitus type 2, uncontrolled, hyperglycemic, Hypertension Morbid obesity, BMI 45.8 6 mm left upper lobe pulmonary nodule. Plan: Continue on current medication regime ,monitoring and symptomatic treatment. Continue on heparin drip. EKG, echo pending. Aggressive pulmonary toileting, maintain nebulized bronchodilators, IV steroids. Lantus dose increased, pre-meal insulin added with additional NovoLog on top a sliding scale this morning. Close monitoring of Accu-Cheks. The impression and plan of care has been dictated as directed. : I performed a history and examination of this patient, discussed the same with the dictator. I agree with the dictator's note ,documented as a scribe. Any additional findings or plans will be noted.
--- NOTE | 2021-09-20 11:01 | ECHOF ---
Referral Reason:Bilateral PE MEASUREMENTS -------- HEIGHT: 175.3 cm WEIGHT: 140.6 kg BP: RVIDd: 3.5 cm (< 3.3) IVSd: 0.9 cm (0.6 - 1.1) LVIDd: 4.7 cm (3.9 - 5.3) LVPWd: 1.1 cm (0.6 - 1.1) IVSs: 1.4 cm LVIDs: 2.7 cm LVPWs: 1.4 cm Ao Diam: 3.6 cm (2.0 - 3.7) AV Cusp: 1.8 cm (1.5 - 2.6) LA Diam: 4.1 cm (2.7 - 3.8) MV EXCURSION: 12.252 mm (> 18.000) MV EF SLOPE: 35 mm/s (70 - 150) EPSS: 1.7 cm MV E Dima: 0.49 m/s MV DecT: 148 ms MV A Dima: 0.86 m/s MV E/A Ratio: 0.57 RAP: 5.00 mmHg RVSP: 41.64 mmHg FINDINGS -------- This was a technically difficult study with suboptimal views. The left ventricular size is normal. Left ventricular wall thickness is normal. Overall left vent ricular systolic function is normal with, an EF between 55 - 60 %. The right ventricle is mildly enlarged. The left atrial size is normal. The right atrial size is normal. The aortic valve is trileaflet and appears structurally normal. The mitral valve is normal. Mild mitral regurgitation is present. The tricuspid valve appears structurally normal. Mild tricuspid regurgitation present. There is m ild pulmonary hypertension. The right ventricular systolic pressure, as measured by Doppler, is 41. 64mmHg. There is no pulmonic regurgitation present. The aortic root size is normal. Normal inferior vena cava with normal inspiratory collapse consistent with estimated right atrial pre ssure of 5 mmHg. There is no pericardial effusion. CONCLUSIONS -------- 1. The left ventricular size is normal. 2. Left ventricular wall thickness is normal. 3. Overall left ventricular systolic function is normal with, an EF between 55 - 60 %. 4. The right ventricle is mildly enlarged. 5. Mild mitral regurgitation is present. 6. Mild tricuspid regurgitation present. 7. There is mild pulmonary hypertension. 8. The right ventricular systolic pressure, as measured by Doppler, is 41.64mmHg. 9. There is no pericardial effusion. [employer] MACHINE OPERATOR: Meri Corona RDCS
[2021-09-20 12:16] LABS: Glucose,Whole Blood 381 mg/dL (75-99)
--- NOTE | 2021-09-20 12:49 | P.PN ---
Subjective Progress Note Date: 09/20/21 Principal diagnosis: Pulmonary embolism, DVT This is a very pleasant 60-year-old female patient who has a history of diabetes mellitus, hyperlipidemia, hypertension, obesity, gastroesophageal reflux disease, former smoker, depression. She presented here to the emergency room ye sterday with complaints of recurrent shortness of breath, dyspnea on exertion. Chest x-ray revealed no acute pulmonary process. white count 10.3. Hemoglobin 14.1. Sodium 138. Potassium 4.3. Creatinine 1.17. Glucose 286. Pro- calcitonin 0.04. Zhu virus by PCR not detected. She is seen today in consultation on the regular medical floor. She is currently sitting up in bed. Awake and alert in no acute distress. She is maintaining O2 saturation in the 90s on 4 L/m per nasal cannula. She still is quite dyspneic with minimal exertion. Dyspneic with conversation. Related order a CT angiogram that is positive for severe bilateral pulmonary embolism. Component of saddle embolism not excluded. There is involvement in the bilateral main pulmonary arteries and there are secondary and distal branches with widespread pulmonary embolism. Right ventricular to left ventricular ratio measures approximately 1.0 there is scattered areas of groundglass opacification suggestive of pneumonitis. Cor relate for RV strain. There is scattered areas of groundglass opacification suggestive of pneumonitis. Coronary artery calcification. 6 mm left upper lobe pulmonary nodule. She's been initiated on a heparin drip. Doppler of the lower extremity is pending. Echocardiogram pending. The patient is seen today 09/20/2021 in follow-up on the regular medical floor. She is currently resting in bed. Awake and alert in no acute distress. Breathing quite a bit better today compared to yesterday. Maintaining O2 saturations in the low 90s on 5 L/m per nasal cannula. Afebrile. Hemodynami bay stable. She remains on heparin drip. We'll cardiogram revealed a mildly enlarged right ventricle. Mild pulmonary hypertension. Preserved left ventricular systolic function ejection fraction 55-60%. White count 17.7. Hemoglobin 12.7. Objective - Vital Signs Vital signs: Vital Signs Temp 98.4 F 09/20/21 07:00 Pulse 88 09/20/21 08:20 Resp 18 09/20/21 08:00 BP 128/76 09/20/21 07:00 Pulse Ox 94 L 09/20/21 07:00 Intake & Output 09/19/21 09/20/21 09/20/21 18:59 06:59 18:59 Intake Total 673 187.833 400.333 Output Total 425 Balance 248 187.833 400.333 Intake: Intake, IV Titration 187.833 160.333 Amount Heparin Sod,Pork in 0.45% 187.833 160.333 NaCl 25,000 unit In 0.45 % NaCl 1 250ml.bag @ 16. 357 UNITS/KG/HR 23 mls/hr IV .[id number] [facility] Rx#: [id number] Oral 673 240 Output: Urine 425 Other: Voiding Method Bedside Commode Bedside Commode Bedside Commode # Voids 1 1 - Exam GENERAL EXAM: Alert, oobese, pleasant 60-year-old female patient, on 5 L nasal cannula, fairly comfortable in no apparent distress. HEAD: Normocephalic. EYES: Normal reaction of pupils, equal size. NOSE: Clear with pink turbinates. THROAT: No erythema or exudates. NECK: No masses, no JVD. CHEST: No chest wall deformity. LUNGS: Equal air entry with no crackles, wheeze, rhonchi or dullness. CVS: S1 and S2 normal with no audible murmur, regular rhythm. ABDOMEN: No hepatosplenomegaly, normal bowel sounds, no guarding or rigidity. SPINE: No scoliosis or deformity SKIN: No rashes CENTRAL NERVOUS SYSTEM: No focal deficits, tone is normal in all 4 extremities. EXTREMITIES: There is no peripheral edema. No clubbing, no cyanosis. Peripheral pulses are intact. - Labs CBC & Chem 7: 09/20/21 06:14 09/18/21 10:26 Labs: Abnormal Lab Results - Last 24 Hours (Table) 09/19/21 09/19/21 09/19/21 Range/Units 12:20 13:08 13:14 WBC 20.6 H (3.8-10.6) k/uL MCHC (32.0-37.0) g/dL RDW (11.5-14.5) % MPV (9.5-12.2) fL Immature Gran # (0.00-0.04) X 10*3/uL Neutrophils # 18.8 H (1.3-7.7) k/uL Lymphocytes # 0.8 L (1.0-4.8) k/uL Eosinophils # (0.04-0.35) X 10*3/uL APTT (22.0-30.0) sec D-Dimer 4.02 H (<0.60) mg/L FEU POC Glucose (mg/dL) (75-99) mg/dL Ur Specific [place] 1.037 H (1.001-1.035) Urine Glucose (UA) 4+ H (Negative) Urine Ketones 1+ H (Negative) 09/19/21 09/19/21 09/19/21 Range/Units 17:28 21:24 21:29 WBC (3.8-10.6) k/uL MCHC (32.0-37.0) g/dL RDW (11.5-14.5) % MPV (9.5-12.2) fL Immature Gran # (0.00-0.04) X 10*3/uL Neutrophils # (1.3-7.7) k/uL Lymphocytes # (1.0-4.8) k/uL Eosinophils # (0.04-0.35) X 10*3/uL APTT 119.8 H* (22.0-30.0) sec D-Dimer (<0.60) mg/L FEU POC Glucose (mg/dL) 343 H 341 H (75-99) mg/dL Ur Specific [place] (1.001-1.035) Urine Glucose (UA) (Negative) Urine Ketones (Negative) 09/20/21 09/20/21 09/20/21 Range/Units 06:14 06:14 07:21 WBC 17.78 H (3.8-10.6) k/uL MCHC 31.0 L (32.0-37.0) g/dL RDW 15.1 H (11.5-14.5) % MPV 9.4 L (9.5-12.2) fL Immature Gran # 0.13 H (0.00-0.04) X 10*3/uL Neutrophils # 16.07 H (1.3-7.7) k/uL Lymphocytes # (1.0-4.8) k/uL Eosinophils # 0 L (0.04-0.35) X 10*3/uL APTT 66.6 H (22.0-30.0) sec D-Dimer (<0.60) mg/L FEU POC Glucose (mg/dL) 407 H (75-99) mg/dL Ur Specific [place] (1.001-1.035) Urine Glucose (UA) (Negative) Urine Ketones (Negative) 09/20/21 Range/Units 12:15 WBC (3.8-10.6) k/uL MCHC (32.0-37.0) g/dL RDW (11.5-14.5) % MPV (9.5-12.2) fL Immature Gran # (0.00-0.04) X 10*3/uL Neutrophils # (1.3-7.7) k/uL Lymphocytes # (1.0-4.8) k/uL Eosinophils # (0.04-0.35) X 10*3/uL APTT (22.0-30.0) sec D-Dimer (<0.60) mg/L FEU POC Glucose (mg/dL) 381 H (75-99) mg/dL Ur Specific [place] (1.001-1.035) Urine Glucose (UA) (Negative) Urine Ketones (Negative) Microbiology - Last 24 Hours (Table) 09/18/21 10:26 Blood Culture - Preliminary Blood No Growth after 24 hours 09/18/21 10:26 Blood Culture - Preliminary Blood No Growth after 24 hours Assessment and Plan Assessment: 1 Acute hypoxemic respiratory failure secondary to acute bilateral severe pulmonary emboli. Component of saddle embolism is not excluded. There is involvement of bilateral main pulmonary arteries and their secondary and distal branches with widespread pulmonary embolism. Right ventricular to left ventricular ratio measures approximately 1.0. The blair for RV strain. Echocardiogram revealed mild right ventricular enlargement. Mild pulmonary hypertension. Preserved LV function. Doppler of the lower extremities did reveal a positive DVT in the left lower extremity. She remains on heparin drip. 2 Morbid obesity 3 Diabetes mellitus 4 Former smoker 5 Hypertension 6 Gastroesophageal reflux disease 7 History of depression 8 History of COVID-19 pneumonia in August 2020 Plan: The patient was seen and evaluated Positive PE, DVT Echocardiogram reviewed Continue heparin drip today In addition to oral anticoagulation tomorrow Stable and is not likely to need an EKOS procedure Titrate the FiO2 as tolerated We will continue to follow
[2021-09-20] MEDS: HEPARIN SOD,PORK IN 0.45% NACL 25,000 UNIT in 0.45% NACL 1 250ML.BAG IV SCH ×2 (12:59→21:46)
[2021-09-20 17:28] LABS: Glucose,Whole Blood 354 mg/dL (75-99)
[2021-09-20 20:11] LABS: Glucose,Whole Blood 349 mg/dL (75-99)
[2021-09-21] MEDS: HEPARIN SOD,PORK IN 0.45% NACL 25,000 UNIT in 0.45% NACL 1 250ML.BAG IV SCH (01:53)
[2021-09-21] MEDS ORDERED: INSULIN DETEMIR (LEVEMIR) 100 UNIT/ML SYR SQ SCH (07:00)
[2021-09-21] MEDS: IPRATROPIUM-ALBUTEROL 3 ML NEB INHALATION PRN ×4 (07:20→19:35)
[2021-09-21] MEDS: BUDESONIDE 0.5 MG/2 ML NEBU INHALATION SCH ×2 (07:20→19:35)
[2021-09-21 07:40] LABS: Glucose,Whole Blood 250 mg/dL (75-99)
[2021-09-21] MEDS: INSULIN ASPART (NovoLOG) 100 UNIT/ML VIAL SQ SCH ×7 (08:49→20:41)
[2021-09-21] MEDS: INSULIN DETEMIR (LEVEMIR) 100 UNIT/ML SYR SQ SCH (08:49)
[2021-09-21] MEDS: VENLAFAXINE HCL ER 150 MG CAP PO SCH (08:50)
[2021-09-21] MEDS: PANTOPRAZOLE 40 MG TABLET PO SCH (08:50)
[2021-09-21] MEDS: FLUCONAZOLE 150 MG TAB PO SCH (08:50)
[2021-09-21] MEDS: LOSARTAN-HCTZ 50-12.5 MG 1 EACH TAB PO SCH (08:50)
[2021-09-21] MEDS: LEVOFLOXACIN 500 MG TAB PO SCH (08:50)
[2021-09-21 09:07] LABS: African American GFR (CKD) 55.9 (60.0-200.0); Anion Gap 12.8 mmol/L (10.00-18.00); BUN/Creat Ratio 36.53 Ratio (12.00-20.00); Blood Urea Nitrogen 44.2 mg/dL (9.0-27.0); Calcium 8.8 mg/dL (8.7-10.3); Carbon Dioxide 24.4 mmol/L (20.0-27.5); Non-African American GFR(CKD) 48.3 (60.0-200.0); Potassium 4.2 mmol/L (3.5-5.5)
[2021-09-21 09:13] LABS: Basophils # (A) 0.03 X 10*3/uL (0.00-0.10); Basophils % (A) 0.2 %; Eosinophils # (A) 0 X 10*3/uL (0.04-0.35); Eosinophils % (A) 0 %; HCT 37.9 % (37.2-46.3); HGB 11.5 g/dL (12.0-15.0); Lymphocytes # (A) 2.28 X 10*3/uL (0.90-5.00); Lymphocytes % (A) 17.1 %; MCH 28.6 pg (27.0-32.0); MCHC 30.3 g/dL (32.0-37.0); MCV 94.3 fL (80.0-97.0); Mean Platelet Volume 9.3 fL (9.5-12.2); Neutrophils # (A) 9.73 X 10*3/uL (1.80-7.70); Neutrophils % (A) 72.8 %; Platelet Count 319 X 10*3/uL (140-440); RBC 4.02 X 10*6/uL (4.10-5.20); RDW 15.1 % (11.5-14.5); WBC 13.36 X 10*3/uL (4.50-10.00)
--- NOTE | 2021-09-21 10:05 | P.PN ---
Subjective Patient is admitted for pulmonary embolism. Patient is still hypoxic on 5 L Cerner try to wean off oxygen. Patient is bit hypotensive because of which I'm cutting down the dose of her aneurysm medications patient was switched to 25 mg of losartan. Constitutional: Denied any fatigue denied any fever. Cardio vascular: denied any chest pain, palpitations Gastrointestinal denied any nausea vomiting Pulmonary: Denied any shortness of breath cough Neurologic denied any new focal deficits All inpatient medications were reviewed and appropriate changes in these medications as dictated in the interval history and assessment and plan. PHYSICAL EXAMINATION: GENERAL: The patient is alert and oriented x3, not in any acute distress. Well developed, well nourished. HEENT: Pupils are round and equally reacting to light. EOMI. No scleral icterus. No conjunctival pallor. Normocephalic, atraumatic. No pharyngeal erythema. No thyromegaly. CARDIOVASCULAR: S1 and S2 present. No murmurs, rubs, or gallops. PULMONARY: Chest is clear to auscultation, no wheezing or crackles. ABDOMEN: Soft, nontender, nondistended, normoactive bowel sounds. No palpable organomegaly. MUSCULOSKELETAL: No joint swelling or deformity. EXTREMITIES: No cyanosis, clubbing, or pedal edema. NEUROLOGICAL: Gross neurological examination did not reveal any focal deficits. SKIN: No rashes. Assessment and plan -Acute hypoxic respiratory failure: Secondary to pu lmonary embolism patient will be continued on anticoagulation. IV heparin will be switched to Eliquis. Patient doesn't have any right ventricle strain -History -Hypertension next and heparin drip diabetes mellitus -Gastroesophageal Reflux disease next and heparin depression -Covid 19 pneumonia AUG 2020 presently doesn't have any residual effects patient PE secondary to previous Covid 19 and obesity Objective - Vital Signs Vital signs: Vital Signs Temp 97.9 F 09/21/21 07:00 Pulse 90 09/21/21 07:38 Resp 20 09/21/21 07:00 BP 117/74 09/21/21 07:00 Pulse Ox 91 L 09/21/21 07:00 Intake & Output 09/20/21 09/21/21 09/21/21 18:59 06:59 18:59 Intake Total 807.100 221.661 98.802 Output Total 300 Balance 507.100 221.661 98.802 Intake: IV 144 Heparin Sod,Pork in 0.45% 144 NaCl 25,000 unit In 0.45 % NaCl 1 250ml.bag @ 16. 357 UNITS/KG/HR 23 mls/hr IV .[id number] [facility] Rx#: [id number] Intake, IV Titration 243.100 221.661 98.802 Amount Heparin Sod,Pork in 0.45% 243.100 221.661 98.802 NaCl 25,000 unit In 0.45 % NaCl 1 250ml.bag @ 16. 357 UNITS/KG/HR 23 mls/hr IV .[id number] [facility] Rx#: [id number] Oral 420 Output: Urine 300 Other: Voiding Method Bedside Commode # Voids 1 1 - Labs CBC & Chem 7: 09/21/21 06:17 09/21/21 06:17 Labs: Abnormal Lab Results - Last 24 Hours (Table) 09/20/21 09/20/21 09/20/21 Range/Units 06:14 12:15 15:37 WBC (4.50-10.00) X 10*3/uL RBC (4.10-5.20) X 10*6/uL Hgb (12.0-15.0) g/dL MCHC (32.0-37.0) g/dL RDW (11.5-14.5) % MPV (9.5-12.2) fL Immature Gran # (0.00-0.04) X 10*3/uL Neutrophils # (1.80-7.70) X 10*3/uL Monocytes # (0.20-1.00) X 10*3/uL Eosinophils # (0.04-0.35) X 10*3/uL APTT 45.8 H (22.0-30.0) sec BUN (9.0-27.0) mg/dL Est GFR (CKD-EPI)AfAm (60.0-200.0) Est GFR (CKD-EPI)NonAf (60.0-200.0) BUN/Creatinine Ratio (12.00-20.00) Ratio Glucose (70-110) mg/dL POC Glucose (mg/dL) 381 H (75-99) mg/dL Hemoglobin A1c 9.0 H (4.0-6.0) % 09/20/21 09/20/21 09/21/21 Range/Units 17:27 20:09 06:17 WBC 13.36 H (4.50-10.00) X 10*3/uL RBC 4.02 L (4.10-5.20) X 10*6/uL Hgb 11.5 L (12.0-15.0) g/dL MCHC 30.3 L (32.0-37.0) g/dL RDW 15.1 H (11.5-14.5) % MPV 9.3 L (9.5-12.2) fL Immature Gran # 0.12 H (0.00-0.04) X 10*3/uL Neutrophils # 9.73 H (1.80-7.70) X 10*3/uL Monocytes # 1.20 H (0.20-1.00) X 10*3/uL Eosinophils # 0 L (0.04-0.35) X 10*3/uL APTT (22.0-30.0) sec BUN (9.0-27.0) mg/dL Est GFR (CKD-EPI)AfAm (60.0-200.0) Est GFR (CKD-EPI)NonAf (60.0-200.0) BUN/Creatinine Ratio (12.00-20.00) Ratio Glucose (70-110) mg/dL POC Glucose (mg/dL) 354 H 349 H (75-99) mg/dL Hemoglobin A1c (4.0-6.0) % 09/21/21 09/21/21 09/21/21 Range/Units 06:17 06:17 07:38 WBC (4.50-10.00) X 10*3/uL RBC (4.10-5.20) X 10*6/uL Hgb (12.0-15.0) g/dL MCHC (32.0-37.0) g/dL RDW (11.5-14.5) % MPV (9.5-12.2) fL Immature Gran # (0.00-0.04) X 10*3/uL Neutrophils # (1.80-7.70) X 10*3/uL Monocytes # (0.20-1.00) X 10*3/uL Eosinophils # (0.04-0.35) X 10*3/uL APTT 50.2 H (22.0-30.0) sec BUN 44.2 H (9.0-27.0) mg/dL Est GFR (CKD-EPI)AfAm 55.9 L (60.0-200.0) Est GFR (CKD-EPI)NonAf 48.3 L (60.0-200.0) BUN/Creatinine Ratio 36.53 H (12.00-20.00) Ratio Glucose 228 H (70-110) mg/dL POC Glucose (mg/dL) 250 H (75-99) mg/dL Hemoglobin A1c (4.0-6.0) % Microbiology - Last 24 Hours (Table) 09/18/21 10:26 Blood Culture - Preliminary Blood No Growth after 48 hours 09/18/21 10:26 Blood Culture - Preliminary Blood No Growth after 48 hours
[2021-09-21] MEDS: APIXABAN 5 MG TAB PO SCH ×2 (11:23→19:42)
[2021-09-21 11:56] LABS: Glucose,Whole Blood 303 mg/dL (75-99)
[2021-09-21 12:05] VITALS: BMI 45.8
--- NOTE | 2021-09-21 15:35 | P.PN ---
Subjective Progress Note Date: 09/21/21 This is a very pleasant 60-year-old female patient who has a history of diabetes mellitus, hyperlipidemia, hypertension, obesity, gastroesophageal reflux disease, former smoker, depression. She presented here to the emergency room yesterday with complaints of recurrent shortness of breath, dyspnea on exertion. Chest x-ray revealed no acute pulmonary process. white count 10.3. Hemoglobin 14.1. Sodium 138. Potassium 4.3. Creatinine 1.17. Glucose 286. Pro- calcitonin 0.04. Zhu virus by PCR not detected. She is seen today in consultation on the regular medical floor. She is currently sitting up in bed. Awake and alert in no acute distress. She is maintaining O2 saturation in the 90s on 4 L/m per nasal cannula. She still is quite dyspneic with minimal exertion. Dyspneic with conversation. Related order a CT angiogram that is positive for severe bilateral pulmonary embolism. Component of saddle embolism not excluded. There is involvement in the bilateral main pulmonary arteries and there are secondary and distal branches with widespread pulmonary embolism. Right ventricular to left ventricular ratio measures approximately 1.0 there is scattered areas of groundglass opacification suggestive of pneumonitis. Cor relate for RV strain. There is scattered areas of groundglass opacification suggestive of pneumonitis. Coronary artery calcification. 6 mm left upper lobe pulmonary nodule. She's been initiated on a heparin drip. Doppler of the lower extremity is pending. Echocardiogram pending. The patient is seen today 09/20/2021 in follow-up on the regular medical floor. She is currently resting in bed. Awake and alert in no acute distress. Breathing quite a bit better today compared to yesterday. Maintaining O2 saturations in the low 90s on 5 L/m per nasal cannula. Afebrile. Hemodynamically stable. She remains on heparin drip. We'll cardiogram revealed a mildly enlarged right ventricle. Mild pulmonary hypertension. Preserved left ventricular systolic function ejection fraction 55-60%. White count 17.7. Hemoglobin 12.7. 09/21/2021, the patient is doing essentially well and stable. She still having some chest pain pleuritic in nature probably related to some residual pulmonary embolism symptoms. She is currently off IV heparin and she was started on anti- correlation with adequate systemic illness by mouth twice a day. As mentioned earlier, the patient was found to have a DVT of the lower extremity and bilateral pulmonary embolism and this is considered to be in essentially a unprovoked pulmonary embolism. She did have a COVID 19 infection approximately year ago. She is morbidly obese and she has a BMI 45.3. She is currently on 3 L of oxygen by nasal cannula. Her blood sugar slightly elevated at 250. Creatinine is at 1.2 and stable, white cell count of 13.3 with a hemoglobin of 11.5. Echocardiogram was noted. No significant RV dysfunction. No cervical pulmonary hypertension. Objective - Vital Signs Vital signs: Vital Signs Temp 98.5 F 09/21/21 15:00 Pulse 86 09/21/21 15:23 Resp 18 09/21/21 15:00 BP 115/76 09/21/21 15:00 Pulse Ox 94 L 09/21/21 15:00 Intake & Output 09/20/21 09/21/21 09/21/21 18:59 06:59 18:59 Intake Total 807.100 221.661 280.665 Output Total 300 Balance 507.100 221.661 280.665 Weight 140.614 kg Intake: IV 144 Heparin Sod,Pork in 0.45% 144 NaCl 25,000 unit In 0.45 % NaCl 1 250ml.bag @ 16. 357 UNITS/KG/HR 23 mls/hr IV .[id number] [facility] Rx#: [id number] Intake, IV Titration 243.100 221.661 162.665 Amount Heparin Sod,Pork in 0.45% 243.100 221.661 162.665 NaCl 25,000 unit In 0.45 % NaCl 1 250ml.bag @ 16. 357 UNITS/KG/HR 23 mls/hr IV .[id number] [facility] Rx#: [id number] Oral 420 118 Output: Urine 300 Other: Voiding Method Bedside Commode Bedside Commode # Voids 1 1 3 - Exam GENERAL EXAM: Alert, oobese, pleasant 60-year-old female patient, on 5 L nasal cannula, fairly comfortable in no apparent distress. HEAD: Normocephalic. EYES: Normal reaction of pupils, equal size. NOSE: Clear with pink turbinates. THROAT: No erythema or exudates. NECK: No masses, no JVD. CHEST: No chest wall deformity. LUNGS: Equal air entry with no crackles, wheeze, rhonchi or dullness. CVS: S1 and S2 normal with no audible murmur, regular rhythm. ABDOMEN: No hepatosplenomegaly, normal bowel sounds, no guarding or rigidity. SPINE: No scoliosis or deformity SKIN: No rashes CENTRAL NERVOUS SYSTEM: No focal deficits, tone is normal in all 4 extremities. EXTREMITIES: There is no peripheral edema. No clubbing, no cyanosis. Peripheral pulses are intact. - Labs CBC & Chem 7: 09/21/21 06:17 09/21/21 06:17 Labs: Abnormal Lab Results - Last 24 Hours (Table) 09/20/21 09/20/21 09/20/21 Range/Units 06:14 15:37 17:27 WBC (4.50-10.00) X 10*3/uL RBC (4.10-5.20) X 10*6/uL Hgb (12.0-15.0) g/dL MCHC (32.0-37.0) g/dL RDW (11.5-14.5) % MPV (9.5-12.2) fL Immature Gran # (0.00-0.04) X 10*3/uL Neutrophils # (1.80-7.70) X 10*3/uL Monocytes # (0.20-1.00) X 10*3/uL Eosinophils # (0.04-0.35) X 10*3/uL APTT 45.8 H (22.0-30.0) sec BUN (9.0-27.0) mg/dL Est GFR (CKD-EPI)AfAm (60.0-200.0) Est GFR (CKD-EPI)NonAf (60.0-200.0) BUN/Creatinine Ratio (12.00-20.00) Ratio Glucose (70-110) mg/dL POC Glucose (mg/dL) 354 H (75-99) mg/dL Hemoglobin A1c 9.0 H (4.0-6.0) % 09/20/21 09/21/21 09/21/21 Range/Units 20:09 06:17 06:17 WBC 13.36 H (4.50-10.00) X 10*3/uL RBC 4.02 L (4.10-5.20) X 10*6/uL Hgb 11.5 L (12.0-15.0) g/dL MCHC 30.3 L (32.0-37.0) g/dL RDW 15.1 H (11.5-14.5) % MPV 9.3 L (9.5-12.2) fL Immature Gran # 0.12 H (0.00-0.04) X 10*3/uL Neutrophils # 9.73 H (1.80-7.70) X 10*3/uL Monocytes # 1.20 H (0.20-1.00) X 10*3/uL Eosinophils # 0 L (0.04-0.35) X 10*3/uL APTT (22.0-30.0) sec BUN 44.2 H (9.0-27.0) mg/dL Est GFR (CKD-EPI)AfAm 55.9 L (60.0-200.0) Est GFR (CKD-EPI)NonAf 48.3 L (60.0-200.0) BUN/Creatinine Ratio 36.53 H (12.00-20.00) Ratio Glucose 228 H (70-110) mg/dL POC Glucose (mg/dL) 349 H (75-99) mg/dL Hemoglobin A1c (4.0-6.0) % 09/21/21 09/21/21 09/21/21 Range/Units 06:17 07:38 11:55 WBC (4.50-10.00) X 10*3/uL RBC (4.10-5.20) X 10*6/uL Hgb (12.0-15.0) g/dL MCHC (32.0-37.0) g/dL RDW (11.5-14.5) % MPV (9.5-12.2) fL Immature Gran # (0.00-0.04) X 10*3/uL Neutrophils # (1.80-7.70) X 10*3/uL Monocytes # (0.20-1.00) X 10*3/uL Eosinophils # (0.04-0.35) X 10*3/uL APTT 50.2 H (22.0-30.0) sec BUN (9.0-27.0) mg/dL Est GFR (CKD-EPI)AfAm (60.0-200.0) Est GFR (CKD-EPI)NonAf (60.0-200.0) BUN/Creatinine Ratio (12.00-20.00) Ratio Glucose (70-110) mg/dL POC Glucose (mg/dL) 250 H 303 H (75-99) mg/dL Hemoglobin A1c (4.0-6.0) % Microbiology - Last 24 Hours (Table) 09/18/21 10:26 Blood Culture - Preliminary Blood No Growth after 72 hours 09/18/21 10:26 Blood Culture - Preliminary Blood No Growth after 72 hours Assessment and Plan Plan: 1 Acute hypoxemic respiratory failure secondary to acute bilateral severe pulmonary emboli. Component of saddle embolism is not excluded. There is involvement of bilateral main pulmonary arteries and their secondary and distal branches with widespread pulmonary embolism. Right ventricular to left vent ricular ratio measures approximately 1.0. The blair for RV strain. Echocardiogram revealed mild right ventricular enlargement. Mild pulmonary hypertension. Preserved LV function. Doppler of the lower extremities did reveal a positive DVT in the left lower extremity. She remains on a decannulati on with Eliquis and IV heparin has been discontinued. 2 Morbid obesity 3 Diabetes mellitus 4 Former smoker 5 Hypertension 6 Gastroesophageal reflux disease 7 History of depression 8 History of COVID-19 pneumonia in August 2020 Plan: Continue anticoagulation with Eliquis 10 mg by mouth twice a day Wean down FiO2 to maintain saturation above 90%, was able to cut her down to 3 L The patient is having some ongoing pleurisy which should improve with anticoagulation The patient was seen and evaluated Positive PE, DVT Echocardiogram reviewed Increase mobility. We'll continue to follow.
[2021-09-21 16:58] LABS: Glucose,Whole Blood 224 mg/dL (75-99)
[2021-09-21 20:08] LABS: Glucose,Whole Blood 306 mg/dL (75-99)
[2021-09-22 07:21] LABS: Glucose,Whole Blood 189 mg/dL (75-99)
[2021-09-22] MEDS: INSULIN ASPART (NovoLOG) 100 UNIT/ML VIAL SQ SCH ×7 (08:50→20:42)
[2021-09-22] MEDS: INSULIN DETEMIR (LEVEMIR) 100 UNIT/ML SYR SQ SCH (08:50)
[2021-09-22] MEDS: LOSARTAN 25 MG TAB PO SCH (08:51)
[2021-09-22] MEDS: FLUCONAZOLE 150 MG TAB PO SCH (08:51)
[2021-09-22] MEDS: VENLAFAXINE HCL ER 150 MG CAP PO SCH (08:51)
[2021-09-22] MEDS: LEVOFLOXACIN 500 MG TAB PO SCH (08:51)
[2021-09-22] MEDS: APIXABAN 5 MG TAB PO SCH ×2 (08:51→20:42)
[2021-09-22] MEDS: PANTOPRAZOLE 40 MG TABLET PO SCH (08:51)
[2021-09-22] MEDS: BUDESONIDE 0.5 MG/2 ML NEBU INHALATION SCH ×2 (09:45→18:56)
[2021-09-22 11:49] LABS: Glucose,Whole Blood 219 mg/dL (75-99)
[2021-09-22] MEDS ORDERED: guaiFENesin-DM 100-10MG/5ML 10 ML CUP PO PRN (14:01)
--- NOTE | 2021-09-22 14:41 | P.PN ---
Subjective Progress Note Date: 09/22/21 Principal diagnosis: Pulmonary embolism, DVT This is a very pleasant 60-year-old female patient who has a history of diabetes mellitus, hyperlipidemia, hypertension, obesity, gastroesophageal reflux disease, former smoker, depression. She presented here to the emergency room ye sterday with complaints of recurrent shortness of breath, dyspnea on exertion. Chest x-ray revealed no acute pulmonary process. white count 10.3. Hemoglobin 14.1. Sodium 138. Potassium 4.3. Creatinine 1.17. Glucose 286. Pro- calcitonin 0.04. Zhu virus by PCR not detected. She is seen today in consultation on the regular medical floor. She is currently sitting up in bed. Awake and alert in no acute distress. She is maintaining O2 saturation in the 90s on 4 L/m per nasal cannula. She still is quite dyspneic with minimal exertion. Dyspneic with conversation. Related order a CT angiogram that is positive for severe bilateral pulmonary embolism. Component of saddle embolism not excluded. There is involvement in the bilateral main pulmonary arteries and there are secondary and distal branches with widespread pulmonary embolism. Right ventricular to left ventricular ratio measures approximately 1.0 there is scattered areas of groundglass opacification suggestive of pneumonitis. Cor relate for RV strain. There is scattered areas of groundglass opacification suggestive of pneumonitis. Coronary artery calcification. 6 mm left upper lobe pulmonary nodule. She's been initiated on a heparin drip. Doppler of the lower extremity is pending. Echocardiogram pending. The patient is seen today 09/20/2021 in follow-up on the regular medical floor. She is currently resting in bed. Awake and alert in no acute distress. Breathing quite a bit better today compared to yesterday. Maintaining O2 saturations in the low 90s on 5 L/m per nasal cannula. Afebrile. Hemodynami bay stable. She remains on heparin drip. We'll cardiogram revealed a mildly enlarged right ventricle. Mild pulmonary hypertension. Preserved left ventricular systolic function ejection fraction 55-60%. White count 17.7. Hemoglobin 12.7. 09/21/2021, the patient is doing essentially well and stable. She still having some chest pain pleuritic in nature probably related to some residual pulmonary embolism symptoms. She is currently off IV heparin and she was started on anti- correlation with adequate systemic illness by mouth twice a day. As mentioned earlier, the patient was found to have a DVT of the lower extremity and bilateral pulmonary embolism and this is considered to be in essentially a unprovoked pulmonary embolism. She did have a COVID 19 infection approximately year ago. She is morbidly obese and she has a BMI 45.3. She is currently on 3 L of oxygen by nasal cannula. Her blood sugar slightly elevated at 250. Creatinine is at 1.2 and stable, white cell count of 13.3 with a hemoglobin of 11.5. Echocardiogram was noted. No significant RV dysfunction. No cervical pulmonary hypertension. The patient seemed is a 09/22/2021 in follow-up on the regular medical floor. She is currently sitting up in bed. Awake and alert in no acute distress. She is breathing easier today compared to yesterday. She has less chest wall discomfort. She does have a dry nonproductive cough. No hemoptysis. She is maintaining good O2 saturations in the low 90s on 2 L/m per nasal cannula. She's afebrile. Hemodynamically stable. Blood cultures reveal no growth. Blood glucose 189. She is currently on Eliquis. Antibiotics in the form of Levaquin. Bronchodilators. Objective - Vital Signs Vital signs: Vital Signs Temp 98.3 F 09/22/21 07:00 Pulse 88 09/22/21 08:00 Resp 20 09/22/21 08:00 BP 133/83 09/22/21 07:00 Pulse Ox 92 L 09/22/21 07:00 Intake & Output 09/21/21 09/22/21 09/22/21 18:59 06:59 18:59 Intake Total 280.665 288 Balance 280.665 288 Weight 140.614 kg Intake: Intake, IV Titration 162.665 Amount Heparin Sod,Pork in 0.45% 162.665 NaCl 25,000 unit In 0.45 % NaCl 1 250ml.bag @ 16. 357 UNITS/KG/HR 23 mls/hr IV .[id number] [facility] Rx#: [id number] Oral 118 288 Other: Voiding Method Bedside Commode Bedside Commode # Voids 3 2 # Bowel Movements 1 - Exam GENERAL EXAM: Alert, obese, pleasant 60-year-old female patient, on 2 L nasal cannula, fairly comfortable in no apparent distress. HEAD: Normocephalic. EYES: Normal reaction of pupils, equal size. NOSE: Clear with pink turbinates. THROAT: No erythema or exudates. NECK: No masses, no JVD. CHEST: No chest wall deformity. LUNGS: Equal air entry with few scattered rhonchi. CVS: S1 and S2 normal with no audible murmur, regular rhythm. ABDOMEN: No hepatosplenomegaly, normal bowel sounds, no guarding or rigidity. SPINE: No scoliosis or deformity SKIN: No rashes CENTRAL NERVOUS SYSTEM: No focal deficits, tone is normal in all 4 extremities. EXTREMITIES: There is no peripheral edema. No clubbing, no cyanosis. Peripheral pulses are intact. - Labs CBC & Chem 7: 09/21/21 06:17 09/21/21 06:17 Labs: Abnormal Lab Results - Last 24 Hours (Table) 09/21/21 09/21/21 09/22/21 Range/Units 16:56 20:07 07:20 POC Glucose (mg/dL) 224 H 306 H 189 H (75-99) mg/dL 09/22/21 Range/Units 11:48 POC Glucose (mg/dL) 219 H (75-99) mg/dL Microbiology - Last 24 Hours (Table) 09/18/21 10:26 Blood Culture - Preliminary Blood No Growth after 96 hours 09/18/21 10:26 Blood Culture - Preliminary Blood No Growth after 96 hours Assessment and Plan Assessment: 1 Acute hypoxemic respiratory failure secondary to acute bilateral severe pulmonary emboli. Component of saddle embolism is not excluded. There is i nvolvement of bilateral main pulmonary arteries and their secondary and distal branches with widespread pulmonary embolism. Right ventricular to left ventricular ratio measures approximately 1.0. The blair for RV strain. Echocardiogram revealed mild right ventricular enlargement. Mild pulmonary h ypertension. Preserved LV function. Doppler of the lower extremities did reveal a positive DVT in the left lower extremity. She remains on Eliquis. 2 Morbid obesity 3 Diabetes mellitus 4 Former smoker 5 Hypertension 6 Gastroesophageal reflux disease 7 History of depression 8 History of COVID-19 pneumonia in August 2020 Plan: The patient was seen and evaluated Positive PE, DVT Currently on Eliquis Add Robitussin for cough Increase activity as tolerated Titrate the FiO2 as tolerated We will continue to follow
--- NOTE | 2021-09-22 14:44 | P.PN ---
Subjective Patient is admitted for pulmonary embolism. Patient is still hypoxic on 5 L Cerner try to wean off oxygen. Patient is bit hypotensive because of which I'm cutting down the dose of her aneurysm medications patient was switched to 25 mg of losartan. 09/22/2021 Patient was pretty status improved and patient is presently on 2 L of oxygen patient probably can be weaned off oxygen tomorrow and probably can be discharged. Patient is still having some pleuritic chest pain patient is comparing of cough for which patient was started on Robitussin with dextromethorphan. Constitutional: Denied any fatigue denied any fever. Cardio vascular: denied any chest pain, palpitations Gastrointestinal denied any nausea vomiting Pulmonary: Denied any shortness of breath cough Neurologic denied any new focal deficits All inpatient medications were reviewed and appropriate changes in these medications as dictated in the interval history and assessment and plan. PHYSICAL EXAMINATION: GENERAL: The patient is alert and oriented x3, not in any acute distress. Well developed, well nourished. HEENT: Pupils are round and equally reacting to light. EOMI. No scleral icterus. No conjunctival pallor. Normocephalic, atraumatic. No pharyngeal erythema. No thyromegaly. CARDIOVASCULAR: S1 and S2 present. No murmurs, rubs, or gallops. PULMONARY: Chest is clear to auscultation, no wheezing or crackles. ABDOMEN: Soft, nontender, nondistended, normoactive bowel sounds. No palpable organomegaly. MUSCULOSKELETAL: No joint swelling or deformity. EXTREMITIES: No cyanosis, clubbing, or pedal edema. NEUROLOGICAL: Gross neurological examination did not reveal any focal deficits. SKIN: No rashes. Assessment and plan -Acute hypoxic respiratory failure: Secondary to pu lmonary embolism patient will be continued on anticoagulation. IV heparin will be switched to Eliquis. Patient doesn't have any right ventricle strain -History -Hypertension - diabetes mellitus2 -Gastroesophageal Reflux disease -depression -Covid 19 pneumonia AUG 2020 presently doesn't have any residual effects patient PE secondary to previous Covid 19 and obesity Objective - Vital Signs Vital signs: Vital Signs Temp 98.3 F 09/22/21 07:00 Pulse 88 09/22/21 08:00 Resp 20 09/22/21 08:00 BP 133/83 09/22/21 07:00 Pulse Ox 92 L 09/22/21 07:00 Intake & Output 09/21/21 09/22/21 09/22/21 18:59 06:59 18:59 Intake Total 280.665 288 Balance 280.665 288 Weight 140.614 kg Intake: Intake, IV Titration 162.665 Amount Heparin Sod,Pork in 0.45% 162.665 NaCl 25,000 unit In 0.45 % NaCl 1 250ml.bag @ 16. 357 UNITS/KG/HR 23 mls/hr IV .[id number] [facility] Rx#: [id number] Oral 118 288 Other: Voiding Method Bedside Commode Bedside Commode # Voids 3 2 # Bowel Movements 1 - Labs CBC & Chem 7: 09/21/21 06:17 09/21/21 06:17 Labs: Abnormal Lab Results - Last 24 Hours (Table) 09/21/21 09/21/21 09/22/21 Range/Units 16:56 20:07 07:20 POC Glucose (mg/dL) 224 H 306 H 189 H (75-99) mg/dL 09/22/21 Range/Units 11:48 POC Glucose (mg/dL) 219 H (75-99) mg/dL Microbiology - Last 24 Hours (Table) 09/18/21 10:26 Blood Culture - Preliminary Blood No Growth after 96 hours 09/18/21 10:26 Blood Culture - Preliminary Blood No Growth after 96 hours
[2021-09-22 17:05] LABS: Glucose,Whole Blood 195 mg/dL (75-99)
[2021-09-22] MEDS: IPRATROPIUM-ALBUTEROL 3 ML NEB INHALATION PRN (18:56)
[2021-09-22 20:32] LABS: Glucose,Whole Blood 181 mg/dL (75-99)
[2021-09-23 07:43] LABS: Glucose,Whole Blood 304 mg/dL (75-99)
[2021-09-23 07:57] VITALS: RESP 20; TEMP 97.9
[2021-09-23] MEDS: INSULIN DETEMIR (LEVEMIR) 100 UNIT/ML SYR SQ SCH (08:17)
[2021-09-23] MEDS: FLUCONAZOLE 150 MG TAB PO SCH (08:18)
[2021-09-23] MEDS: APIXABAN 5 MG TAB PO SCH (08:18)
[2021-09-23] MEDS: VENLAFAXINE HCL ER 150 MG CAP PO SCH (08:18)
[2021-09-23] MEDS: LEVOFLOXACIN 500 MG TAB PO SCH (08:18)
[2021-09-23] MEDS: PANTOPRAZOLE 40 MG TABLET PO SCH (08:18)
[2021-09-23] MEDS: INSULIN ASPART (NovoLOG) 100 UNIT/ML VIAL SQ SCH ×4 (08:23→12:37)
[2021-09-23] MEDS: IPRATROPIUM-ALBUTEROL 3 ML NEB INHALATION PRN (09:39)
[2021-09-23] MEDS: BUDESONIDE 0.5 MG/2 ML NEBU INHALATION SCH (09:40)
[2021-09-23 09:42] VITALS: PULSE 94
--- NOTE | 2021-09-23 11:19 | P.PN ---
Subjective Progress Note Date: 09/23/21 Principal diagnosis: Bilateral PEs, shortness of breath On 09/23/2021 patient seen in follow-up on medical surgical floor, she subsequently presented to the bed, in no acute distress. Breathing comfortably, she is currently on 2 L of oxygen with pulse ox of 94%, she states she feels a lot better, and would like to go home today, she's had no acute events overnight, no complaints of chest pain, she is breathing comfortably, she has been transitioned to oral anticoagulation in the form of Eliquis, she continues on DuoNeb nebulized treatments, Symbicort, Levaquin, fluconazole, clinically she is improving. No new labs today. Clinically stable, lung sounds are clear to auscultation, discharge home today if cleared by medicine. Objective - Vital Signs Vital signs: Vital Signs Temp 97.9 F 09/23/21 07:00 Pulse 94 09/23/21 09:42 Resp 20 09/23/21 08:00 BP 98/84 09/23/21 07:00 Pulse Ox 96 09/23/21 09:42 Intake & Output 09/22/21 09/23/21 09/23/21 18:59 06:59 18:59 Intake Total 406 1080 240 Balance 406 1080 240 Intake: Oral 406 1080 240 Other: Voiding Method Bedside Commode Bedside Commode # Voids 3 3 - Exam GENERAL EXAM: Alert, very pleasant, 60-year-old morbidly obese white female, 2 L of oxygen and the pulse ox 94%, sitting up on the edge of the bed, breathing comfortably comfortable in no apparent distress. HEAD: Normocephalic/atraumatic. EYES: Normal reaction of pupils, equal size. Conjunctiva pink, sclera white. NOSE: Clear with pink turbinates. THROAT: No erythema or exudates. NECK: No masses, no JVD, no thyroid enlargement, no adenopathy. CHEST: No chest wall deformity. Symmetrical expansion. LUNGS: Equal air entry with no crackles, wheeze, rhonchi or dullness. CVS: Regular rate and rhythm, normal S1 and S2, no gallops, no murmurs, no rubs ABDOMEN: Soft, nontender. No hepatosplenomegaly, normal bowel sounds, no guarding or rigidity. EXTREMITIES: No clubbing, no edema, no cyanosis, 2+ pulses and upper and lower extremities. MUSCULOSKELETAL: Muscle strength and tone normal. SPINE: No scoliosis or deformity SKIN: No rashes CENTRAL NERVOUS SYSTEM: Alert and oriented -3. No focal deficits, tone is normal in all 4 extremities. PSYCHIATRIC: Alert and oriented -3. Appropriate affect. Intact judgment and insight. - Labs CBC & Chem 7: 09/21/21 06:17 09/21/21 06:17 Labs: Abnormal Lab Results - Last 24 Hours (Table) 09/22/21 09/22/21 09/22/21 Range/Units 11:48 17:03 20:31 POC Glucose (mg/dL) 219 H 195 H 181 H (75-99) mg/dL 09/23/21 Range/Units 07:38 POC Glucose (mg/dL) 304 H (75-99) mg/dL Microbiology - Last 24 Hours (Table) 09/18/21 10:26 Blood Culture - Preliminary Blood No Growth after 96 hours 09/18/21 10:26 Blood Culture - Preliminary Blood No Growth after 96 hours Assessment and Plan Plan: Assessment: #1. Acute hypoxic respiratory failure related to acute bilateral pulmonary emboli. Component of this embolism was not excluded. There was involvement of bilateral main pulmonary arteries and secondary and distal branches with widespread pulmonary emboli. Echocardiogram revealed mild right ventricular enlargement, mild pulmonary hypertension, preserved LV function. Doppler of lower extremities did reveal a positive DVT in the left lower extremity. Patient was transitioned to Eliquis #2. Left lower extremity DVT, acute #3. Morbid obesity with BMI 45.8 kg/m #4. Diabetes mellitus type 2 #5. Hypertension #6. GERD/reflux #7. History of depression #8. History of COVID-19 pneumonia in August 2020 Plan: Clinical patient has been stable No acute events overnight Obtain home oxygen assessment Patient has been transitioned to oral Eliquis Stable for discharge home today Outpatient follow-up with Dr. Schmidt in the office in 2 weeks I performed a history & physical examination of the patient and discussed their management with my nurse practitioner, Fatuma Alfonso. I reviewed the nurse practitioner's note and agree with the documented findings and plan of care. Lung sounds are positive for clear breath sounds throughout the lung [place]. The findings and the impression was discussed with the patient. I attest to the documentation by the nurse practitioner. Time with Patient: Less than 30
[2021-09-23 11:35] VITALS: BP 132/79
[2021-09-23] MEDS: LOSARTAN 25 MG TAB PO SCH (11:35)
[2021-09-23 12:05] LABS: Glucose,Whole Blood 268 mg/dL (75-99)
[2021-09-23] MEDS ORDERED: SYMBICORT 80-4.5 MCG INHALER INHALATION SCH (20:00)
--- NOTE | 2021-09-24 11:49 | P.DS ---
Providers Date of admission: 09/20/21 09:04 Expected date of discharge: 09/23/21 Attending physician: Feliciano Gutierrez MD Consults: 09/18/21 15:30 Consult Physician Routine Consulting Provider: Keiko Schmidt Consult Reason/Comments: COPD Do you want consulting provider notified?: Yes Primary care physician: Nicole Brantley [facility] Course: Final Diagnoses: Acute hypoxic respiratory failure secondary to bilateral PE, in a patient with prior history of covid 2020 and sedentary lifestyle. Left popliteal vein DVT, acute COPD Diabetes mellitus type 2, uncontrolled, hyperglycemic, Hypertension Morbid obesity, BMI 45.8 6 mm left upper lobe pulmonary nodule, further follow-up outpatient with pulmonary Hospital course: Nicole Montiel is a 60 yo F with PMH of COPD, T2DM, morbid obesity who presented to the ED with 2-3 week history of worsening shortness of breath. She complains of becoming extremely winded with minimal activity, poor exercise tolerance. She states this has been an issue for a few months ever since she had COVID but worse in the past few weeks. She denies fever, chills, sore throat, headache, myalgias. She is a current smoker. No sick contact. On pr esentation pt hypoxic and tachycardic, WBC 10.3, procalcitonin 0.04, Cr 1.1, CXR no acute process. CTA ordered and significant for bilateral pulmonary embolism. 09/20/2021 chest CTA completed yesterday reported severe bilateral pulmonary embolism. Correlating for RV strain, Echo , EKG pending. Venous Doppler of bilateral lower extremities reported positive left popliteal vein thrombus .patient reported recent fall where her head had hit the cement and did not have workup . Brain CT completed reporting no acute hemorrhage or mass effect .Anticoagulated on heparin drip. Maintaining O2 sats in the 90s on 5 L nasal cannula O2. Occasional nonproductive cough Feels better with less shortness of breath. Denies chest pain, palpitations. Blood sugars elevated. Afebrile, WBC trending down 17.78. Significant clinical improvement. Patient will require 2 L nasal cannula O2 at discharge, O2 sat of 84 percent on room air after ambulation. Patient will also require duonebs regarding her COPD. Patient has been transitioned to oral anticoagulation with Eliquis. Denies chest pain, palpitations or increasing shortness of breath. Cleared by pulmonary for discharge. Patient will be discharged home today in stable condition with guarded prognosis. The impression and plan of care has been dictated as directed. : I performed a history and examination of this patient, discussed the same with the dictator. I agree with the dictator's note ,documented as a scribe. Any additional findings or plans will be noted. Patient Condition at Discharge: Stable Plan - Discharge Summary Discharge Rx Participant: Yes New Discharge Prescriptions: New Apixaban [Eliquis Starter Pack (for VTE)] 5 - 10 mg PO DIRECTED 30 Days #1 each Ipratropium-Albuterol Nebulize [Duoneb 0.5 mg-3 mg/3 ml Soln] 3 ml INHALATION RT-Q4H #120 ml Losartan [Cozaar] 25 mg PO DAILY #30 tab guaiFENesin-DM 100-10MG/5ML [Robitussin DM] 10 ml PO Q6HR PRN ml PRN Reason: Cough Acetaminophen Tab [Tylenol] 650 mg PO Q6HR PRN tab PRN Reason: Fever And/ Or Pain Continue Pantoprazole Sodium [Protonix] 40 mg PO DAILY Cinnamon Bark [Cinnamon] 2,000 mg PO DAILY Venlafaxine HCl [Effexor XR] 150 mg PO DAILY Insulin Glargine,Hum.rec.anlog [Lantus Solostar Pen] 55 - 58 unit SQ DAILY Dulaglutide [Trulicity] 1.5 mg SQ FR Empagliflozin [Jardiance] 25 mg PO DAILY [place] 1 dose PO DAILY Discontinued Losartan-Hctz 50-12.5 mg [Hyzaar 50-12.5] 1 tab PO DAILY Discharge Medication List Pantoprazole Sodium [Protonix] 40 mg PO DAILY 05/10/15 [History] Cinnamon Bark [Cinnamon] 2,000 mg PO DAILY 09/05/20 [History] Venlafaxine HCl [Effexor XR] 150 mg PO DAILY 09/05/20 [History] Dulaglutide [Trulicity] 1.5 mg SQ FR 09/18/21 [History] Empagliflozin [Jardiance] 25 mg PO DAILY 09/18/21 [History] Insulin Glargine,Hum.rec.anlog [Lantus Solostar Pen] 55 - 58 unit SQ DAILY 09/18/21 [History] [place] 1 dose PO DAILY 09/18/21 [History] Acetaminophen Tab [Tylenol] 650 mg PO Q6HR PRN tab 09/23/21 [Rx] Apixaban [Eliquis Starter Pack (for VTE)] 5 - 10 mg PO DIRECTED 30 Days #1 each 09/23/21 [Rx] Ipratropium-Albuterol Nebulize [Duoneb 0.5 mg-3 mg/3 ml Soln] 3 ml INHALATION RT-Q4H #120 ml 09/23/21 [Rx] Losartan [Cozaar] 25 mg PO DAILY #30 tab 09/23/21 [Rx] guaiFENesin-DM 100-10MG/5ML [Robitussin DM] 10 ml PO Q6HR PRN ml 09/23/21 [Rx] Follow up Appointment(s)/Referral(s): Feliciano Gutierrez MD [STAFF PHYSICIAN] - 1 Week Jerod Spears [NON-STAFF] - (*Please call [facility] once home to arrange delivery of the oxygen concentrator. ) Keiko Schmidt MD [STAFF PHYSICIAN] - 10/10/21 2:15 pm Ambulatory/Diagnostic Orders: Complete Blood Count w/diff [LAB.AMB] Time Frame: 3 Days, Location: None Selected Patient Instructions/Handouts: Pulmonary Embolism (DC), How to Stop Smoking (DC), Deep Vein Thrombosis (DC) Activity/Diet/Wound Care/Special Instructions: oxygen & Nebulizer machine being arranged by case mgmt.
== END 2021-09-23 14:38 | disposition home or self-care (01) | DRG 175 ==
LOC: EC 09:57 → 6NMEDSUR 12:17 → OBSVTOIN 09-20 09:04
PROVIDERS: ADMIT Family Medicine; ATTEND Family Medicine
DX: I26.99 Other pulmonary embolism without acute cor pulmonale (principal); J96.01 Acute respiratory failure with hypoxia; Z68.42 Body mass index [BMI] 45.0-49.9, adult; I82.432 Acute embolism and thrombosis of left popliteal vein; J44.1 Chronic obstructive pulmonary disease with (acute) exacerbation; E11.41 Type 2 diabetes mellitus with diabetic mononeuropathy; E11.65 Type 2 diabetes mellitus with hyperglycemia; E66.01 Morbid (severe) obesity due to excess calories; E78.5 Hyperlipidemia, unspecified; F17.200 Nicotine dependence, unspecified, uncomplicated; F32.A Depression, unspecified; I10 Essential (primary) hypertension; I25.10 Atherosclerotic heart disease of native coronary artery without angina pectoris; I27.20 Pulmonary hypertension, unspecified; K21.9 Gastro-esophageal reflux disease without esophagitis; Z20.822 Contact with and (suspected) exposure to COVID-19; Z96.641 Presence of right artificial hip joint; Z79.01 Long term (current) use of anticoagulants; Z79.4 Long term (current) use of insulin; Z79.899 Other long term (current) drug therapy; Z85.72 Personal history of non-Hodgkin lymphomas; Z86.16 Personal history of COVID-19; Z87.01 Personal history of pneumonia (recurrent); Z90.710 Acquired absence of both cervix and uterus
CPT/HCPCS: 36415; 70450; 71046; 71275; 80048; 80053; 81003; 83036; 83605; 83735; 84145; 84484; 85025; 85379; 85610; 85730; 87040; 87635; 93005; 93306; 93970; 94640; 94760; 99285

== ENCOUNTER → 2022-01-03 | Outpatient (CLI) | payer OTHER ==
--- NOTE | 2022-01-03 13:31 | CT ---
EXAMINATION TYPE: CT angio chest DATE OF EXAM: 01/03/2022 COMPARISON: 09/19/2021 and 09/06/2020 HISTORY: 61-year-old female I26.99 Pulmonary embolism w/o acute cor pulmonale TECHNIQUE: Contiguous axial scanning of the chest performed with IV Contrast, patient injected with 8 0ml mL of Isovue 370. Coronal/sagittal MIP reconstructions performed. CT DLP: 788.9 mGycm Automated exposure control for dose reduction was used. FINDINGS: Heart normal size. Extensive LAD coronary artery calcifications. Slight flattening of the interventri cular septum but no reflux of contrast into the hepatic veins. Mild aneurysm aortic root at 4.0 cm. Bovine configuration to the aortic arch. No thoracic lymphadenopathy by CT size criteria. Large caliber to the right and left main pulmonary artery is at 3.0 and 2.7 cm, respectively, suggest ing underlying pulmonary artery hypertension. There is interval improvement in previous clot burden but with some residual mural-based clot at the branch point with the right upper lobe pulmonary artery, axial image 70. In addition, there is some c entral filling defect within the right lower lobar branch, axial image 82. No additional pulmonary embolus is seen. Minimal residual fine groundglass in the periphery of the right upper lobe and left base with further improvement in the patient's previous COVID pneumonia compared to 09/19/2021. Strandy areas of atelec tasis or scarring in the lower lungs. Stable 4 mm peripheral left basilar pulmonary nodule, axial image 114. 5 mm pulmonary nodule just adjacent posteriorly at the peripheral left base not clearly seen previous ly. Tiny hiatal hernia. Visualized upper abdomen may have some underlying fatty infiltration of the liver . Partially visualized calcifications within the pancreatic body. Bones: Degenerative change at the right greater than left glenohumeral joints. [id number] degen erative disc disease mid to lower thoracic spine. IMPRESSION: 1. INTERVAL CLEARANCE OF THE EXTENSIVE BILATERAL PULMONARY EMBOLI. SOME MILD RESIDUAL MURAL BASED/CHR ONIC CLOT IS PRESENT AT THE BRANCH POINT WITHIN THE RIGHT UPPER LOBE BRANCH. 2. HOWEVER, THE EXAM IS POSITIVE FOR A SOLITARY CENTRAL FILLING DEFECT IN THE RIGHT LOWER LOBAR PULMO NARY ARTERY SUGGESTING A MORE ACUTE EMBOLUS. UNDERLYING PULMONARY ARTERIAL HYPERTENSION IS SUGGESTED. 3. FURTHER IMPROVEMENT IN PATIENT'S PREVIOUS COVID PNEUMONIA. MINIMAL RESIDUAL GROUNDGLASS IN THE PER IPHERY OF THE RIGHT UPPER LOBE AND LEFT BASE COULD REPRESENT RESIDUAL PNEUMONITIS OR INTERSTITIAL SCA RRING. 4. A COUPLE PULMONARY NODULES AT THE LEFT BASE ONE OF WHICH IS SEEN PREVIOUSLY. A 5 MM NODULE NOT TORRIE FAHAD SEEN PREVIOUSLY. THREE-MONTH FOLLOW-UP CT CHEST TO ENSURE STABILITY. A Red level critical message alert has been initiated for Erickson Umaña DO via the [employer] Critical Results System on 01/03/2022 1:28 PM. This message alert has been sent to Erickson Umaña DO via the preferences provided by the clinician for the receipt of Radiology Critical Findings. Message ID [id number].
== END | disposition home or self-care (01) ==
LOC: RADCTMAIN 10:58
PROVIDERS: ATTEND Internal Medicine Critical Care Medicine
DX: I26.99 Other pulmonary embolism without acute cor pulmonale (principal); R91.8 Other nonspecific abnormal finding of lung field
CPT/HCPCS: 82565; 84520; 71275; 36415; Q9967

== ENCOUNTER → 2022-03-25 | Outpatient (CLI) | payer OTHER ==
--- NOTE | 2022-03-25 16:07 | CT ---
EXAMINATION TYPE: CT angio chest DATE OF EXAM: 03/25/2022 COMPARISON: CT dated 01/03/2022 HISTORY: COPD, SOB CT DLP: 827.3 mGy.cm. Automated Exposure Control for Dose Reduction was Utilized. TECHNIQUE AND CONTRAST: CTA scan of the thorax is performed with IV Contrast, patient injected with 80 mL of Isovue 370, pulm onary angiogram protocol. MIP Images are created on an independent workstation and reviewed. FINDINGS: Residual nonocclusive chronic emboli are seen within the right lower lobe pulmonary artery. No defini te pulmonary embolism identified otherwise. The pulmonary trunk measures 3.3 cm suggesting pulmonary hypertension. Coronary and arterial atherosclerotic calcifications. No pericardial effusion or cardio megaly. Stable scattered left basal and left apical pulmonary nodules measuring up to 4 mm. Patent trachea an d main bronchi. No pleural effusion. No pathologically enlarged lymph nodes in the chest. Enlarged he terogeneous thyroid gland, please correlate with thyroid function tests. Bulky liver. Marked degenera tive changes of the right glenohumeral articulation. IMPRESSION: Residual nonocclusive chronic emboli within the right lower lobe pulmonary artery, otherwise no pulmo nary embolism identified today. Other findings as described above.
--- NOTE | 2022-03-26 07:31 | CA ---
Transthoracic Echo Report Name: Nicole Montiel Age: 61 Gender: F : 1960 Exam Date: 03/25/2022 11:58 Exam Location: [facility] Ht (in): 68 Wt (lb): 314 Ordering Physician: Keiko Schmidt MD Attending/Referring Phys: Tobi Montilla MD Employment Consultant Annemarie Granados RDCS Procedure CPT: Indications: J44.9 I26.99 Cardiac Hx: Technical Quality: Fair Contrast 1: Total Dose (mL): Contrast 2: Total Dose (mL): MEASUREMENTS (Male / Female) Normal Values 2D ECHO LV Diastolic Diameter PLAX 4.3 cm 4.2 - 5.9 / 3.9 - 5.3 cm LV Systolic Diameter PLAX 3.2 cm IVS Diastolic Thickness 1.1 cm 0.6 - 1.0 / 0.6 - 0.9 cm LVPW Diastolic Thickness 1.0 cm 0.6 - 1.0 / 0.6 - 0.9 cm LV Relative Wall Thickness 0.5 RV Internal Dim ED PLAX 3.5 cm LA Systolic Diameter LX 3.4 cm 3.0 - 4.0 / 2.7 - 3.8 cm LA Volume 31.7 cm??? 18 - 58 / 22 - 52 cm??? M-MODE Aortic Root Diameter MM 3.6 cm MV E Point Septal Separation 1.0 cm AV Cusp Separation MM 2.2 cm DOPPLER AV Peak Velocity 139.6 cm/s AV Peak Gradient 7.8 mmHg MV Area PHT 3.0 cm??? Mitral E Point Velocity 87.4 cm/s Mitral A Point Velocity 101.4 cm/s Mitral E to A Ratio 0.9 MV Deceleration Time 250.8 ms MV E' Velocity 5.0 cm/s Mitral E to MV E' Ratio 17.5 FINDINGS Left Ventricle Left ventricular ejection fraction is estimated at 55-60 %. Left ventricular cavity size normal. Borderline left ventricular hypertrophy. Right Ventricle Mild right ventricular dilatation. Unable to estimate the right ventricular systolic pressure. Right Atrium Normal right atrial size. Left Atrium Normal left atrial size. No evidence for an atrial septal defect. Mitral Valve Mitral annular calcification. No mitral stenosis, regurgitation or prolapse. Aortic Valve Trileaflet aortic valve. Focal thickening of the aortic valve cusps. Tricuspid Valve Structurally normal tricuspid valve. No tricuspid stenosis, regurgitation or prolapse. Pulmonic Valve Trace pulmonic regurgitation. Pericardium Normal pericardium. Aorta Normal size aortic root and proximal ascending aorta. CONCLUSIONS #1. Normal left ventricular size with preserved LV function and borderline hypertrophy. #2. Mitral valve calcification, otherwise normal valvular function Previewed by: Dr. Leeanna Franco MD (Electronically Signed) Final Date: 26 March 2022 07:30
== END | disposition home or self-care (01) ==
LOC: RADCTMAIN 11:16
PROVIDERS: ATTEND Internal Medicine Critical Care Medicine
DX: J44.9 Chronic obstructive pulmonary disease, unspecified (principal); I26.99 Other pulmonary embolism without acute cor pulmonale; I08.8 Other rheumatic multiple valve diseases
CPT/HCPCS: 93306; 82565; 84520; 71275; 36415; Q9967

== ENCOUNTER → 2022-07-28 | Outpatient (CLI) | payer OTHER ==
--- NOTE | 2022-07-28 17:27 | CT ---
EXAMINATION TYPE: CT soft tissue neck w con DATE OF EXAM: 07/28/2022 COMPARISON: 05/05/2011 HISTORY: Left ear pain, history of lymphoma CT DLP: 968.70 mGycm CONTRAST: Patient injected with 0 mL of Isovue 300. TECHNIQUE: Axial images at 3 mm thick sections. Reconstructed images in the coronal plane and sagitt al plane are reviewed. FINDINGS: Limited CT sections are obtained the lung apices. There is an area of pneumonitis within t he right upper lung field. Series 5 image 10 and lung windows . Coronary artery calcifications noted. CT neck: The torus tubarius and fossa of Rosenmuller are normal. [employer] spaces are normal. Para nasal sinuses and mastoid air cells are clear. Parotid glands appear normal and symmetrical. Submandibular glands, are normal. Parapharyngeal spac es are normal. There is a focal area of increased density within the lateral portion of the left parotid gland measu ring 1.0 x 1.2 cm this could be a lymph node. Additional evaluation with ultrasound is recommended. A t the level marked by the BB a second oval density is present measuring 0.9 x 1.4 cm a be a second ly mph node. Scattered small lymph nodes. Present within the left cervical chain inferior to the parotid gland. The hypopharynx appears within normal limits. Vocal cord level appear symmetrical. Thyroid as visualized is normal. There is some cervical kyphosis in the lower cervical spine. IMPRESSIONS: 1. 2 oval densities within the peripheral left parotid region corresponding to the palpable abnormali ty suspicious for enlarged lymphadenopathy. Additional evaluation with ultrasound is recommended. 2. Focal area of pneumonitis right upper lung field. Follow-up CT chest in 3 months is recommended.
--- NOTE | 2022-07-28 17:35 | CT ---
CT CHEST FOR PULMONARY EMBOLISM. EXAMINATION TYPE: CT angio chest DATE OF EXAM: 07/28/2022 INDICATION: Lymphoma CT DLP: 772.80 mGycm, Automated exposure control for dose reduction was used. CONTRAST: Patient injected with intravenous contrast. COMPARISON: 03/25/2022 TECHNIQUE: CT of the chest is performed on a spiral scan at 2 mm thick sections. Study is performed with intravenous contrast timed for evaluation for pulmonary embolism. This will limit additional po rtions of the evaluation. 3-D MIP images reconstructed by the technologist are reviewed on the compu ter in the coronal and sagittal planes. FINDINGS: No persistent filling defects are evident to suggest an acute pulmonary embolism. No mediastinal or hilar adenopathy enlarged by CT criteria is evident. No suspicious axillary adenop athy. The ascending aorta diameter at the level of the main pulmonary artery is 3.8 cm. The main pul monary artery diameter at the bifurcation is 3.3 cm. Coronary artery calcification is present. There is a area of pneumonitis within the right upper lung field. Finding is nonspecific. Atypical pn eumonia and neoplasm could be considered atelectasis is within the differential. Follow-up exam in 3 months is recommended for reevaluation. Small subtle density may be at the left costophrenic angle. S eries [address] section through the upper abdomen are unremarkable. IMPRESSIONS: 1. Focal pneumonitis in the right upper lung field. Short-term follow-up within 3 months is recommend ed. 2. No suspicious lymphadenopathy. 3. Please also see CT neck report same date
== END | disposition home or self-care (01) ==
LOC: RADCTMAIN 06:52
PROVIDERS: ATTEND Otolaryngology
DX: R22.1 Localized swelling, mass and lump, neck (principal); K11.8 Other diseases of salivary glands
CPT/HCPCS: 70491; 71275; 36415; Q9967

== ENCOUNTER → 2022-08-26 | Outpatient (CLI) | payer OTHER ==
--- NOTE | 2022-08-27 06:34 | US ---
EXAMINATION TYPE: US kidneys/renal and bladder DATE OF EXAM: 08/26/2022 COMPARISON: CT 2018 CLINICAL HISTORY: ckd stage 3a N18.31. CKD stage 3 EXAM MEASUREMENTS: Right Kidney: 10.5 x 5.2 x 3.4 cm Left Kidney: 9.8 x 5.5 x 4.4 cm Exam limited due to body habitus and bowel gas. Right Kidney: Cortical thinning. Left Kidney: Cortical thinning. Bladder: Not fully distended. Bilateral Jets seen: No Exam suboptimal due to large body habitus. Cortical thinning bilaterally. There is no evidence for hy dronephrosis at this point in time. No nephrolithiasis is seen. No masses are identified. The urin destinee bladder is not greatly distended. IMPRESSION: Suboptimal study. No gross hydronephrosis seen bilaterally.
== END | disposition home or self-care (01) ==
LOC: RADUSWWP 15:41
PROVIDERS: ATTEND Internal Medicine
DX: N18.31 Chronic kidney disease, stage 3a (principal)
CPT/HCPCS: 76770